=== PATIENT | male | born 1970 | race Caucasian/White ===

== ENCOUNTER 2017-11-28 09:52 | Inpatient (IN) | payer OTHER ==
[~2017-11-28] VITALS: Ht 172.7 cm; Wt 89.9 kg
[~2017-11-28 09:52] MED LIST: TOPROL XL 50MG50 MG PO
--- NOTE | 2017-11-28 09:56 | ED AMS/SEIZURE/WEAK/DIZZY ---
History of Present Illness General Chief Complaint: General Adult Stated Complaint: PT UNRESPONSIVE SUGAR >500 Source: family, old records, EMS Exam Limitations: clinical condition Vital Signs & Intake/Output Vital Signs & Intake/Output Vital Signs Date Time Temp Pulse Resp B/P B/P Pulse O2 O2 Flow FiO2 Mean Ox Delivery Rate 11/28 1425 95 Nasal 2.0L Cannula 11/28 1320 99.3 124 40 104/60 95 Nasal 2.0L Cannula 11/28 1257 98.3 123 20 116/55 98 Room Air 11/28 1219 121 20 116/62 97 Nasal 4.0L Cannula 11/28 1152 98.5 121 20 124/60 99 Nasal 4.0L Cannula 11/28 1135 118 20 123/59 99 Nasal 4.0L Cannula 11/28 1128 98 Nasal 4.0L Cannula 11/28 1121 123 20 125/61 100 Nasal 4.0L Cannula 11/28 1106 124 24 119/63 100 Nasal 4.0L Cannula 11/28 1041 126 30 124/59 98 Nasal 4.0L Cannula 11/28 1031 127 20 131/58 99 Nasal 4.0L Cannula 11/28 1017 98.4 122 40 100 Non 100% ReBreather 11/28 0956 40 86/48 Allergies Coded Allergies: NO KNOWN ALLERGIES (08/07/15) Triage Nurses Notes Reviewed? yes Onset: Abrupt Duration: day(s): (1), constant Timing: recent history Injury Environment: home Severity: severe Severity Numbers: 10 No Modifying Factors: none Associated Symptoms: DENIES HPI: 37-year-old male history of diabetes hypertension previous alcohol abuse presents after he was found by his mother shaking in his computer chair. He lives with her. She states over the past few weeks he's been complaining of worsening back pain and difficulty walking secondary to his back pain which is attributed to sciatica. His mother states he's only been taking ibuprofen for the pain on arrival his blood sugars greater than 500 he's not on insulin. Patient is lethargic however responsive to painful stimuli. His mother states otherwise been in his normal state of health he is a former alcoholic she states she does not believe he is on any drugs. No history of withdrawal seizures however he has had history of bad withdrawal symptoms in the past. (Katiuska FONSECA,Paras) Reconcile Medications No Known Home Medications (Mayank Alberts DO) Past History Medical History Any Pertinent Medical History? 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 No (Paras Gautam) Review of Systems Review of Systems Constitutional: Reports: see HPI. Comments Review of systems: Obtained via mother Constitutional, no chills no fever, no malaise HEENT: no sore throat no congestion, no ear pain Cardiovascular: No chest pain Skin: no rashes, no change in skin Respiratory: No dyspnea no cough no sputum GI: No nausea no vomiting, no diarrhea : No dysuria No hematuria, no frequency Muscle skeletal: No joint pain, chronic back pain, no neck pain, Neurologic: , no headache Heme/endocrine: No bruising no bleeding (Paras Gautam) Physical Exam Physical Exam General Appearance: lethargic, severe distress Comments: HEENT: Normal EENT exam; pupils are myotic, EOMI, no nystagmus. HEAD is atraumatic. moist mucous membranes. Neck: Supple, no lymphadenopathy, Back: Nontender, no CVA tenderness. Full range of motion Cardiovascular: Tachycardic, regular rhythm no murmurs rubs or gallops, normal JVP Respiratory: Chest nontender.There were no bony deformities, no asymmetry. No respiratory distress. Patient speaking in full complete sentences. Breath sounds clear to auscultation bilaterally: NO W/R/R Abdomen: Soft, nontender nondistended, no appreciable organomegaly. Normal bowel sounds. No rebound/guarding, No appreciable enlargement of the abdominal aorta, No ascites. Extremity: 2+ bilateral lower extremity edema, responsive to pain, ecchymosis noted to the right shoulder full range of motion of extremities, no obvious deformity normal and equal pulses bilaterally, 5 out of 5 strength noted to bilateral upper and lower extremities Neuro: Lethargic, responsive to verbal and painful stimuli, There were no obvious focal neurologic abnormalities. Skin: No appreciable rash on exposed skin, skin is warm and dry. Psych: Mood and affect is normal, memory and judgment is normal. Core Measures ACS in differential dx? Yes CVA/TIA Diagnosis No Sepsis Present: Yes Sepsis Focused Exam Completed? Yes (Katiuska FONSECA,Paras) Progress Differential Diagnosis: arrythmia, alcohol intoxication, anemia, benign positional vertigo, drug intoxication, electrolyte imbalance, intracranial Hem., intracranial mass/tumor, meningitis, pneumonia, sepsis, seizure disorder, subarachnoid Hem., UTI/pyelo, vertebrobasilar insuff, AMI, SEPSIS, WITHDRAWAL, DKA, HHS Plan of Care: Orders Procedure Date/time Status CBC WITHOUT DIFFERENTIAL 11/29 0600 Active Nothing by Mouth 11/28 D Active LACTIC ACID 11/28 1911 Active TROPONIN LEVEL 11/28 1700 Active LACTIC ACID 11/28 1700 Active ICU LAB BUNDLE 11/28 1700 Active EKG 11/28 1700 Active TRC EVALUATION (GEN) 11/28 1615 Active EXTREMETIES CULTURE 11/28 1614 Active XRY-PORTABLE CHEST XRAY 11/28 1548 Active Lab Add-on Test 11/28 1546 Active BLOOD PRODUCT PICKUP 11/28 1519 Active ECHOCARDIOGRAM 11/28 1450 Active ECHOCARDIOGRAM 11/28 1447 Active Lab Add-on Test 11/28 1440 Active Wound Care/Dressing 11/28 1401 Active VTE Mechanical Prophylaxis 11/28 1401 Active Vital Signs 11/28 1401 Active Turn and Reposition 11/28 1401 Active Teach/Educate 11/28 1401 Active Skin Integrity Protocol 11/28 1401 Active Skin/Pressure Ulcer Assess (Sk 11/28 1401 Active Precautions 11/28 1401 Active Pain Treatment and Response 11/28 1401 Active Nutritional Intake, Monitor 11/28 1401 Active Isolation 11/28 1401 Active Patient Care Conference 11/28 1401 Active Activity/Ambulation 11/28 1401 Active EXTREMETIES CULTURE 11/28 1400 Active TYPE & SCREEN (NOT X-MATCH) 11/28 1400 Complete CYTOLOGY SPECIMEN 11/28 1358 Active FRESH FROZEN PLASMA 11/28 1356 Active LACTIC ACID 11/28 1254 Complete PROSTATIC SPECIFIC ANTIGEN 11/28 1237 Complete PHOSPHORUS 11/28 1230 Complete MAGNESIUM 11/28 1230 Complete GLUCOSE 11/28 1230 Complete BASIC ELECTROLYTES PLUS BUN&CR 11/28 1230 Complete US-LIMITED ABDOMEN 11/28 1201 Active VRE ACTIVE SURVIELLANCE 11/28 1201 Active ACTIVE SURVEILLANCE NARES 11/28 1201 Active FingerStick- Glucose 11/28 1157 Active Saline Lock 11/28 1152 Active Pathway - chart 11/28 1152 Active House Staff 11/28 1152 Active Patient Data 11/28 1135 Active ED Holding Orders 11/28 1122 Active Admit to inpatient 11/28 1122 Active Vital Signs 11/28 1122 Complete Code Status 11/28 1122 Active ACETONE 11/28 1113 Complete Add-on Test (ER Only) 11/28 1035 Active Intake & Output 11/28 1012 Active CULTURE,URINE 11/28 1012 Active GLYCOSYLATED HGB 11/28 1011 Active ARTERIAL BLOOD GAS (GEN) 11/28 1008 Complete URINE DRUG SCREEN FOR ER ONLY 11/28 1008 Complete Zabala, Insertion/Removal/Asses 11/28 1003 Active EKG 11/28 1003 Active FingerStick- Glucose 11/28 0956 Complete URINALYSIS 11/28 0956 Complete MIXED VENOUS BLOOD GAS (GEN) 11/28 0954 Complete BLOOD CULTURE 11/28 0954 Active ACETOMINOPHEN 11/28 0954 Active TROPONIN LEVEL 11/28 0954 Active SALICYLATE 11/28 0954 Active PARTIAL THROMBOPLASTIN TIME 11/28 0954 Complete PROTHROMBIN TIME 11/28 0954 Complete SERUM OSMOLALITY 11/28 0954 Active LACTIC ACID 11/28 0954 Active ETHANOL 11/28 0954 Active COMPREHENSIVE METABOLIC PANEL 11/28 0954 Active CBC WITHOUT DIFFERENTIAL 11/28 0954 Complete OXYGEN SETUP (GEN) 11/28 UNK Complete VTE Mechanical Prophylaxis 11/28 UNK Complete CIWA 11/28 UNK Active Current Medications Sig/[place] Start time Last Medication Dose Stop Time Status Admin Heparin Sodium 5,000 UNIT Q8 11/29 0600 CAN (Porcine) Pantoprazole Sodium 40 MG DAILY 11/28 1501 AC (Protonix) Non-Formulary 0 SEE ADMIN CRITERIA 11/28 1445 CAN Medication (NON FORMULARY) Piperacillin Sod/ 3.375 GM Q6H 11/28 1445 AC 11/28 Tazobactam Sod 1536 (Zosyn) Sodium Chloride 100 ML (Normal Saline 0.9%) Acetaminophen 650 MG Q6P PRN 11/28 1215 AC (Tylenol) Insulin Human Regular 100 UNIT Q24H 11/28 1215 AC (Novolin R (Insulin Drip)) Sodium Chloride 100 ML (Normal Saline 0.9%) Lorazepam 0 Q1P PRN 11/28 1215 AC (Ativan) Potassium Chloride 20 MEQ Q8H 11/28 1200 AC 05/26 (KCl 20MEQ in NS 1220 1000ML) Sodium Chloride 1,000 ML (Normal Saline 0.9%) Laboratory Tests 11/28/17 1237: Lactic Acid 3.8 H 11/28/17 1237: Anion Gap 20 H, Estimated GFR 36 L, BUN/Creatinine Ratio 28.5 H, Glucose 557 *H, Phosphorus 6.3 H, Magnesium 2.2, Total PSA 0.19 11/28/17 1124: Acetone Level POSITIVE AT 1:16 DIL 11/28/17 1040: Bicarbonate Actual 14 L, Mixed VBG pH 7.19 L, Mixed VBG pCO2 38 L, Mixed VBG O2 Saturation 48 H, P-50 (Temp Corrected) N, Carboxyhemoglobin 0.9 L, O2 Concentration % 100%, Temperature 98.4, O2 Delivery Method NRB, PT 40.7 H, INR 3.69 H, APTT 49 H, Phlebotomy Draw Site RAC 11/28/17 1020: pH 7.25 *L, pCO2 30 L, pO2 271 H, HCO3 13 L, ABG O2 Sat (Measured) 99.0, P-50 (Temp Corrected) N, Carboxyhemoglobin 0.5 L, O2 Concentration % 100%, Temperature 98.4, O2 Delivery Method NRB, Phlebotomy Draw Site RIGHT RADIAL 11/28/17 1012: Urine Opiates Screen < 100, Methadone Screen < 40, Barbiturate Screen < 60, Ur Phencyclidine Scrn < 6.00, Amphetamines Screen < 100, U Benzodiazepines Scrn < 85, Urine Cocaine Screen < 50, Urine Cannabis Screen > 80.00 H, Urinalysis LIGHT H, Urine Color BLDY H, Urine Clarity TURBD H, Urine pH 7.0, Ur Specific [place] 1.020, Urine Protein >=300 H, Urine Ketones 15 H, Urine Nitrite POS H , Urine Bilirubin NEG@ICTO, Urine Urobilinogen 4.0 H, Ur Leukocyte Esterase LARGE H, Ur Microscopic SEDIMENT EXAMINED, Urine RBC >75 H, Urine WBC > 75 H, Urine Bacteria MANY H, Micro UA Comment MORE INFO: H, Urine Hemoglobin LARGE H, Urine Glucose 250 H 11/28/17 1011: Anion Gap 29 H, Estimated GFR 30 L, BUN/Creatinine Ratio 24.3, Glucose 702 *H, Hemoglobin A1c Pending, Serum Osmolality 339 H, Lactic Acid 5.6 H, Calcium 8.3 L, Total Bilirubin 1.4 H, AST 61 H, ALT 26, Alkaline Phosphatase 297 H, Troponin I 0.06, Total Protein 5.8 L, Albumin 2.4 L, Globulin 3.4, Albumin/ Globulin Ratio 0.7 L, CBC w Diff MAN DIFF ORDERED, RBC 5.10, MCV 82.5, MCH 27.0 , MCHC 32.8 L, RDW 15.1 H, MPV 9.3, Gran % 92.8 H, Lymphocytes % 3.6 L, Monocytes % 3.6, Eosinophils % 0, Basophils % 0, Absolute Granulocytes 66.6 H, Segmented Neutrophils 77 H, Band Neutrophils 11 H, Absolute Lymphocytes 2.6, Lymphocytes 5 L, Monocytes 1 L, Absolute Monocytes 2.6 H, Absolute Eosinophils 0, Absolute Basophils 0, Metamyelocytes 2 H, Myelocytes 4 H, Platelet Estimate ADEQUATE, Normocytic RBCs VERIFIED, Normochromic RBCs VERIFIED , Salicylates < 1.0, Acetaminophen < 10.0 L, Serum Alcohol < 10.0 11/28/17 1007: Salicylates Cancelled, Acetaminophen Cancelled 11/28/17 0956: Serum Alcohol Cancelled Microbiology 11/28 1614 EXTREMITIE: Culture & Sensitivity - ORD 11/28 1614 EXTREMITIE: Gram Stain - ORD 11/28 1420 EXTREMITIE: Culture & Sensitivity - RECD 11/28 1420 EXTREMITIE: Anaerobic Culture - RECD 11/28 1420 EXTREMITIE: Gram Stain - RECD 11/28 1320 UPPER RESP: Surveillance Culture - RECD 11/28 1320 GI: Surveillance Culture - RECD 11/28 1040 BLOOD: Blood Culture - RECD 11/28 1030 BLOOD: Blood Culture - RECD 11/28 1012 URINE ROUT: Urine Culture - RECD 11/28 1003 URINE ROUT: Urine Culture - CAN Cancelled: Cancelled via OE: CAN BE ADDED ON Labs ordered old records reviewed no response with 2 mg of IV Narcan in the emergency room Dr. Alberts in room to evaluate PT and agrees with plan 11/28/2017 10:26:50 AM he should more responsive answering my questions he denies any alcohol or drug use today he denies any pain at this time. He states he has not been taking his medications. 115Kelly- jorge is more awake at this time fluids are running, I updated Jorge's mother on all his labs CAT scan findings to date pending CAT scan of the chest abdomen pelvis. Dr. Alberts spoke with , insulin drip ordered Andre is currently infusing Fortaz was ordered, jorge will be admitted to the ICU 11/28/2017 12:10:54 PM11/28/2017 12:10:57 PM I updated family on CAT scan results, I spoke with Dr. BANERJEE regarding the CAT scan results I spoke with [facility] about Diagnostic Imaging: Viewed by Me: Radiology Read, CT Scan. Discussed w/RAD: Radiology Read, CT Scan. Radiology Impression: PATIENT: JORGE ELLSWORTH PRESENT AGE : 47 PATIENT ACCOUNT NO: [id number] : 68 LOCATION: [facility] ORDERING PHYSICIAN: Paras FONSECA SERVICE DATE: 11/28/17-1007 EXAM TYPE: CAT - CT CERV SPINE WO IV CONTRAST; CT HEAD WO IV CONTRAST EXAMINATION: CT HEAD AND CT OF THE CERVICAL SPINE WITHOUT CONTRAST CLINICAL INFORMATION: Unresponsive. COMPARISON: None. TECHNIQUE: Noncontrast CT scan of the head and cervical spine, using standard protocol. Multiplanar reconstructed images are obtained. Multiplanar reconstructed images are also obtained. FINDINGS: CT OF THE HEAD: Evaluation is slightly technically limited due to head tilting. The brain parenchyma, ventricles, cisterns and sulci appear unremarkable. Specifically, no evidence of intra-axial mass, mass effect, extra-axial fluid collection, midline shift, acute intraparenchymal hemorrhage and/or acute infarction present. Both orbital globes, extraocular muscles, optic nerves appear bilaterally symmetric and are unremarkable. The bilateral mastoid air cells appear unremarkable. CT OF THE CERVICAL SPINE: Moderate mid to lower cervical dextroscoliosis is present. Significant facet degenerative changes are noted at C3-C4 on the left. Mild-to- moderate spondylosis related changes are noted at C5-C6, C6-C7 and to a lesser extent C3-C4. There is reversal of midcervical lordosis present. The prespinal soft tissues appear unremarkable. There is no superimposed acute fracture or subluxation present. IMPRESSION: 1. No acute intracranial pathology. 2. No CT evidence of any acute fracture no subluxation or dislocation or prespinal soft tissue hematoma present at the cervical spine. 3. Moderate mid to lower cervical dextroscoliosis, significant facet degenerative arthritic changes at C3-C4 on the left and mild to moderate multilevel spondylosis, and reversal of midcervical lordosis present. DICTATED BY: Bertrand Toure MD DATE/TIME DICTATED :11/28/171116 AUTOMOTIVE BUYER:MONIK DATE/TIME TRANSCRIBED:11/28/171116 CONFIDENTIAL, DO NOT COPY WITHOUT APPROPRIATE AUTHORIZATION. < Electronically signed in Other Vendor System> SIGNED BY: Bertrand Toure MD 11/28/17 1135, PATIENT: JORGE ELLSWORTH PRESENT AGE: 47 PATIENT ACCOUNT NO: [id number] : 66 LOCATION: [facility] ORDERING PHYSICIAN: Paras FONSECA SERVICE DATE: 11/28/171008 EXAM TYPE: RAD - XRY-PORTABLE CHEST XRAY EXAMINATION: XR PORTABLE CHEST CLINICAL INFORMATION: Unresponsive. COMPARISON: Portable chest radiograph done on 09/19/2005. TECHNIQUE: Portable frontal view of the chest was obtained. FINDINGS: Both lungs are symmetrically expanded, appear clear. The cardiomediastinal silhouette is centrally located, within normal limits. There is no pleural effusion or pneumothorax identified. Visualized upper abdomen is unremarkable. IMPRESSION: No radiographic evidence of acute cardiopulmonary disease. DICTATED BY: Bertrand Toure MD DATE/TIME DICTATED:11/28/171037 AUTOMOTIVE BUYER:MONIK DATE/TIME TRANSCRIBED:1037 CONFIDENTIAL, DO NOT COPY WITHOUT APPROPRIATE AUTHORIZATION. < Electronically signed in Other Vendor System> SIGNED BY: Bertrand Toure MD 11/28/17 1043, : JORGE ELLSWORTH PRESENT AGE: 47 PATIENT ACCOUNT NO: [id number] : 66 LOCATION: [facility] ORDERING PHYSICIAN: Paras FONSECA SERVICE DATE: 11/28/17 EXAM TYPE: CAT - CT ABD & PELVIS W/O IV CONTRAS; CT CHEST WO IV CONTRAST EXAMINATION: CT CHEST, ABDOMEN AND PELVIS WITHOUT CONTRAST CLINICAL INFORMATION: 47-year-old male, unresponsive. COMPARISON: None. TECHNIQUE: Multidetector volumetric imaging was performed from the thoracic inlet through the pubic symphysis without administration of any contrast. DLP: 882.21 mGy-cm. FINDINGS: VISUALIZED NECK: Unremarkable. LUNGS: There are multiple thick-walled bilateral cavitary lesions identified throughout both lung alfred. Few smaller solid nodules are also noted bilaterally. The findings are nonspecific; however, possible differential diagnostic consideration would include metastatic disease versus evolving septic pulmonary emboli and less likely other possibilities such as granulomatosis with polyangiitis (Marcos's granulomatosis), etc. MEDIASTINUM: There are no pathologically enlarged mediastinal and/or hilar lymphadenopathy identified on this nonenhanced study. No significant atherosclerotic disease or coronary arterial disease. PLEURA: There is no pleural effusion. No pleural mass or thickening. AXILLA: No lymphadenopathy LIVER, GALLBLADDER, BILIARY TREE: Unremarkable on this nonenhanced study. PANCREAS: Predominantly fatty replaced, grossly appears unremarkable on this nonenhanced study. SPLEEN: Unremarkable. ADRENAL GLANDS AND KIDNEYS: There is no discrete adrenal mass identified in either side. Mild fullness of the right renal collecting system is noted. There is no urinary tract calculi or obstruction present. An exophytic cortical cyst is present at the superior posterior medial cortex of the left kidney, measures approximately 2 cm at its maximum anteroposterior dimension. URETERS AND BLADDER : Mild fullness of the right ureter is noted. The urinary bladder is suboptimally distended due to presence of Zabala's catheter and is not evaluated. There is nonspecific stranding present around the urinary bladder, of uncertain etiology. BOWEL LOOPS: The small-bowel, large-bowel loops are decompressed. The stomach is moderately distended, unremarkable. The appendix is unremarkable. LYMPHOVASCULAR STRUCTURES: No pathologically enlarged retroperitoneal, mesenteric, pelvic and/or inguinal, groin lymphadenopathy present. There are vascular calcifications identified within the pelvic vessels, likely represents changes secondary to diabetic or nephrogenic vasculopathy. ABDOMINAL WALL: Fat- containing supraumbilical hernia is noted. The defect measures 2.8 cm in transverse dimension. PELVIS: The prostate measures 6.0 x 4.8 cm. Lobulated soft tissue mass is identified within the right ischiorectal fossa with asymmetric prominence of the right-sided gluteal muscles. Given the presence of cortical break involving the right ischial tuberosity and the right inferior pubic ramus, the findings may represent adjacent soft tissue hematoma. In the absence of trauma, however, differential includes neoplastic process (see the goodwin images). Given the presence of tiny air pocket within the soft tissues, the trauma is favored. BONES: Cortical break is noted at the right ischial tuberosity and the right inferior pubic ramus with adjacent soft tissue prominence and tiny air pocket within the soft tissues, most consistent with posttraumatic change or fracture and soft tissue hematoma. Differential includes neoplasm in the absence of trauma. IMPRESSION: 1. Multiple bilateral pulmonary cavitary and few solid lesions are present, as described above. Differential includes metastatic disease versus infection, inflammation including septic pulmonary emboli. Clinical, lab correlation as appropriate is recommended. 2. Limited evaluation of the abdomen and pelvis shows mild fullness of the right ureter and nonspecific stranding around the collapsed urinary bladder and mildly enlarged prostate, and lobulated soft tissue mass within the right ischiorectal fossa and soft tissue fullness involving the right gluteal region and cortical break of the right ischial tuberosity and right inferior pubic ramus. The findings within the pelvis may represent posttraumatic changes, however, differential includes neoplasm as well. This critical result was discussed with RAYMUNDO Marie at 11: 57 AM on 11/28/2017 and it was ascertained that the content and urgency of the report was understood at the time of direct communication. DICTATED BY: Bertrand Toure MD DATE/TIME DICTATED:11/28/171132 AUTOMOTIVE BUYER:MONIK DATE/ TIME TRANSCRIBED:11/28/171132 CONFIDENTIAL, DO NOT COPY WITHOUT APPROPRIATE AUTHORIZATION. <Electronically signed in Other Vendor System> SIGNED BY: Bertrand Toure MD 11/28/17 1239 Initial ED EKG: STACH AT 110, RBBB, NO ACUTE ST SEG CHANGES Prior EKG: unchanged Rhythm Strip: sinus tachycardia (Paras Gautam) ED Sepsis Exam Date of Focused Sepsis Exam: 11/28/17 Time of Focused Sepsis Exam: 1122 Sepsis Cardiac Exam: Tachycardia Sepsis Resp Exam: CTA Sepsis Cap Refill Exam: <2 Sec Sepsis Peripheral Pulse Exam: Normal Sepsis Peripheral Pulse Location: Radial Sepsis Skin Color Exam: Normal for Ethnicity Skin Temp/Moisture Exam: Warm/Dry (Paras Gautam) Departure Departure Disposition: STILL A PATIENT Condition: Stable Clinical Impression Primary Impression: Sepsis Secondary Impressions: JAMAL (acute kidney injury), DKA (diabetic ketoacidoses), Fracture of ischial tuberosity, Leukocytosis, Pubic ramus fracture, Septic embolism, UTI (urinary tract infection) Referrals: Emilio Kim DO (PCP/Family) Departure Forms: Customer Survey General Discharge Information Prescriptions: Current Visit Scripts No Known Home Medications Admission Note Spoke With: Anaya Banerjee MD Documentation of Exam: Documentation of any treatments & extenuating circumstances including Concerns Regarding Discharge (functional status, medication knowledge or non-compliance, living conditions, etc.) that warrant an admission rather than observation: ENDOCRINE CONSULT, INSULIN GTT, TREND LABS AND CULTURES, PREMATURE DISCHARGE MEDICALLY HARMFUL (Paras Gautam) Admission Note Documentation of Exam: Documentation of any treatments & extenuating circumstances including Concerns Regarding Discharge (functional status, medication knowledge or non-compliance, living conditions, etc.) that warrant an admission rather than observation: I spoke with who accepted the patient for admission to the ICU. He was started on an insulin drip and IV antibiotics PA/AUTOMATIC TYPEWRITER INSPECTOR Co-Sign Statement Statement: ED Attending supervision documentation- [X] I saw and evaluated the patient. I have also reviewed all the pertinent lab results and diagnostic results. I agree with the findings and the plan of care as documented in the PA's/AUTOMATIC TYPEWRITER INSPECTOR's documentation. [] I have reviewed the ED Record and agree with the PA's/AUTOMATIC TYPEWRITER INSPECTOR's documentation. [] Additions or exceptions (if any) to the PAs/AUTOMATIC TYPEWRITER INSPECTOR's note and plan are summarized below: [] I've seen and personally examined the patient on arrival. I agree with the PAs evaluation above. He is a 47-year-old man with a history of non-insulin- dependent diabetes who was found unresponsive this morning. His glucose is greater than 500. He has miotic pupils. He did not respond to Narcan. He is hypotensive. Labs and CTs have been ordered. He is receiving IV fluids. His family has been updated. EKG shows sinus tachycardia with bundle branch block. (Mayank Alberts DO) Critical Care Note Critical Care Note Critical Care Time: 75-104 min (Paras Gautam)
[2017-11-28 10:29] LABS: ABSOLUTE EOSINOPHIL COUNT 0 /CUMM (0.0-0.7); EOSINOPHIL % 0 % (0-5)
[2017-11-28 10:34] LABS: ABSOLUTE BASOPHIL COUNT 0 /CUMM (0.0-0.2); ABSOLUTE GRANULOCYTE CT 66.6 /CUMM (1.4-6.5); ABSOLUTE LYMPH COUNT 2.6 /CUMM (1.2-3.4); ABSOLUTE MONOCYTE COUNT 2.6 /CUMM (0.10-0.60); BASOPHIL % 0 % (0.0-2.0); GRANULOCYTE % 92.8 % (42.2-75.2); MEAN CORPUSCULAR HGB CONC 32.8 G/DL (33.0-37.0); MEAN CORPUSCULAR VOLUME 82.5 FL (80.0-94.0); MEAN PLATELET VOLUME 9.3 FL (7.4-10.4); PLATELET COUNT 199 /CUMM (130-400); RBC DISTRIBUTION WIDTH 15.1 % (11.5-14.5)
[2017-11-28 10:41] LABS: WHITE BLOOD CELL COUNT 71.8 /CUMM (4.8-10.8)
--- NOTE | 2017-11-28 10:43 | RADIOLOGY REPORT ---
EXAMINATION: XR PORTABLE CHEST CLINICAL INFORMATION: Unresponsive. COMPARISON: Portable chest radiograph done on 09/19/2005. TECHNIQUE: Portable frontal view of the chest was obtained. FINDINGS: Both lungs are symmetrically expanded, appear clear. The cardiomediastinal silhouette is centrally located, within normal limits. There is no pleural effusion or pneumothorax identified. Visualized upper abdomen is unremarkable. IMPRESSION: No radiographic evidence of acute cardiopulmonary disease.
[2017-11-28 11:11] LABS: PT 40.7 SEC (9.4-12.5); PTT 49 SEC (25-37)
--- NOTE | 2017-11-28 11:35 | CT SCAN REPORT ---
EXAMINATION: CT HEAD AND CT OF THE CERVICAL SPINE WITHOUT CONTRAST CLINICAL INFORMATION: Unresponsive. COMPARISON: None. TECHNIQUE: Noncontrast CT scan of the head and cervical spine, using standard protocol. Multiplanar reconstructed images are obtained. Multiplanar reconstructed images are also obtained. FINDINGS: CT OF THE HEAD: Evaluation is slightly technically limited due to head tilting. The brain parenchyma, ventricles, cisterns and sulci appear unremarkable. Specifically, no evidence of intra-axial mass, mass effect, extra-axial fluid collection, midline shift, acute intraparenchymal hemorrhage and/or acute infarction present. Both orbital globes, extraocular muscles, optic nerves appear bilaterally symmetric and are unremarkable. The bilateral mastoid air cells appear unremarkable. CT OF THE CERVICAL SPINE: Moderate mid to lower cervical dextroscoliosis is present. Significant facet degenerative changes are noted at C3-C4 on the left. Bjel-yq-gaqfazay spondylosis related changes are noted at C5-C6, C6-C7 and to a lesser extent C3-C4. There is reversal of midcervical lordosis present. The prespinal soft tissues appear unremarkable. There is no superimposed acute fracture or subluxation present. IMPRESSION: 1. No acute intracranial pathology. 2. No CT evidence of any acute fracture no subluxation or dislocation or prespinal soft tissue hematoma present at the cervical spine. 3. Moderate mid to lower cervical dextroscoliosis, significant facet degenerative arthritic changes at C3-C4 on the left and mild to moderate multilevel spondylosis, and reversal of midcervical lordosis present.
--- NOTE | 2017-11-28 12:09 | History & Physical ---
See Addendum General Information and HPI MD Statement: I have seen and personally examined SINGH NO and documented this H&P. The patient is a 47 year old M who presented with a patient stated chief complaint of [AMS]. Source of Information: patient, family, old records Exam Limitations: no limitations History of Present Illness: Mr. No is a 47 yo man with PMHx. of type 2 diabetes managed with metformin ( insulin kristine), history of hypertension brought in by ambulance from home for altered mental status. Most history obtained from mother, sister, stepfather, patient himself is lethargic but able to respond to some questions. Today in the morning family went to patient's bedroom and they found that he was sitting on the chair in front of the computer nonresponsive to verbal stimuli, moving upper extremity with no purpose, during the episode he was incontinent for both urine and stool. they thought he had stroke so they called 911. According to family, patient was noticed to have severe right lower back pain which he was attributing to sciatica (never been evaluated medically for that), secondary to severe pain he was sitting on all the time on his bed or on chair in front of his computer, family also reported that he was not eating properly, lost a lot of weight over the last few months. Per family patient was depressed lately after he was broke up with his fiance, he also lost his job and his insurance last year so, he was not seen by his primary care physician since that time, as a result he stopped taking metformin and he didn't get his blood sugar checked since last year. His last refill for metformin was at February. Patient himself reports right lower quadrant pain, he couldn't qualify the nature of the pain or severity given his current status, she also answer yes when asked about difficulty passing urine and he mentioned that he had pain during urination, patient also reports having diarrhea but unknown since when and the family was not aware of it. 2/2 depression patient strat to drink heavily, he stopped drinking about 5 months ago. He denies chest pain, shortness of breath, cough, trauma, recent fall, and Allergies/Medications Allergies: Coded Allergies: NO KNOWN ALLERGIES (08/07/15) Home Med list No Known Home Medications Past History Travel History Traveled to [place] past 21 day No Medical History Neurological: NONE EENT: NONE Cardiovascular: hypertension Respiratory: NONE Gastrointestinal: hiatal hernia Hepatic: NONE Renal: NONE Musculoskeletal: NONE Psychiatric: depression Endocrine: diabetes Blood Disorders: NONE Cancer(s): NONE INSTRUCTIONAL SPECIALIST/Reproductive: NONE Surgical History Surgical History: FAILED UMBILICAL HERNIA REPAIR Past Family/Social History Family History Relations & Conditions if any BROTHER FH: alcoholism Pancreatitis FATHER FH: alcoholism Pancreatitis MOTHER FH: diabetes mellitus FH: hypertension Psychosocial History Smoking Status: Never Smoked ETOH Use: denies use Illicit Drug Use: marijuana Living Will? no Review of Systems Review of Systems Constitutional: Reports: no symptoms. EENTM: Reports: no symptoms. Cardiovascular: Reports: see HPI. Respiratory: Reports: no symptoms. GI: Reports: abdominal pain. Genitourinary: Reports: dysuria, hematuria, pain. Musculoskeletal: Reports: back pain. Skin: Reports: no symptoms. Neurological/Psychological: Reports: see HPI. Hematologic/Endocrine: Reports: see HPI. Immunologic/Allergic: Reports: no symptoms. All Other Systems: Reviewed and Negative Exam & Diagnostic Data Last 24 Hrs of Vital Signs/I&O Vital Signs Date Time Temp Pulse Resp B/P B/P Pulse O2 O2 Flow FiO2 Mean Ox Delivery Rate 11/28 1425 95 Nasal 2.0L Cannula 11/28 1320 99.3 124 40 104/60 95 Nasal 2.0L Cannula 11/28 1257 98.3 123 20 116/55 98 Room Air 11/28 1219 121 20 116/62 97 Nasal 4.0L Cannula 11/28 1152 98.5 121 20 124/60 99 Nasal 4.0L Cannula 11/28 1135 118 20 123/59 99 Nasal 4.0L Cannula 11/28 1128 98 Nasal 4.0L Cannula 11/28 1121 123 20 125/61 100 Nasal 4.0L Cannula 11/28 1106 124 24 119/63 100 Nasal 4.0L Cannula 11/28 1041 126 30 124/59 98 Nasal 4.0L Cannula 11/28 1031 127 20 131/58 99 Nasal 4.0L Cannula 11/28 1017 98.4 122 40 100 Non 100% ReBreather 11/28 0956 40 86/48 Intake & Output 11/28 1600 11/28 0800 11/28 0000 Intake Total 4223 Output Total 50 Balance 4173 Intake, IV 4223 Intake, Oral 0 Number 1 Bowel Movements Output, Urine 50 Patient 198 lb Weight Weight Bed scale Measurement Method Physical Exam General Appearance Alert, Oriented X3, Cooperative, No Acute Distress Skin RIGHT UPPER EXTREMITY ABSCESS, PURPLE DISCOLORATION ON THE COCCYX REGION, WITH OPEN SKIN BARRIER Skin Temp/Moisture Exam: Warm/Dry Sepsis Skin Exam (color): Pale, [place] lesions on the palms HEENT Atraumatic, PERRLA, DRY MUCOUS MEMBRANE Neck Supple, No JVD Lymphatic Axillary nl, Cervical nl Cardiovascular Regular Rate, Normal S1, Normal S2, MURMUR Lungs DECREASE AIR ENTRY BILATERALLY MORE ON THE RIGHT SIDE Abdomen Normal Bowel Sounds, Soft, TENDERNESS ON THE RIGHT LOWER QUADRANT Neurological PATIENT IS LETHARGIC,HE HAS DECREASED POWER IN BILATERAL UPPER AND LOWER EXTREMITIES Extremities No Clubbing, No Cyanosis, DIMINISHED PULSE IN BILATERAL LOWER EXTREMITY, RIGHT LOWER EXTREMITY EDEMA AND SWELLING COMPARED TO THE LEFT Vascular DIMINISHED PULSE IN BILATERAL LOWER EXTREMITY Last 24 Hrs of Labs/Rl: Laboratory Tests 11/28/17 1237: Lactic Acid 3.8 H 11/28/17 1237: Anion Gap 20 H, Estimated GFR 36 L, BUN/Creatinine Ratio 28.5 H, Glucose 557 *H, Phosphorus 6.3 H, Magnesium 2.2, Total PSA Pending 11/28/17 1124: Acetone Level POSITIVE AT 1:16 DIL 11/28/17 1040: Bicarbonate Actual 14 L, Mixed VBG pH 7.19 L, Mixed VBG pCO2 38 L, Mixed VBG O2 Saturation 48 H, P-50 (Temp Corrected) N, Carboxyhemoglobin 0.9 L, O2 Concentration % 100%, Temperature 98.4, O2 Delivery Method NRB, PT 40.7 H, INR 3.69 H, APTT 49 H, Phlebotomy Draw Site RAC 11/28/17 1020: pH 7.25 *L, pCO2 30 L, pO2 271 H, HCO3 13 L, ABG O2 Sat (Measured) 99.0, P-50 (Temp Corrected) N, Carboxyhemoglobin 0.5 L, O2 Concentration % 100%, Temperature 98.4, O2 Delivery Method NRB, Phlebotomy Draw Site RIGHT RADIAL 11/28/17 1012: Urine Opiates Screen < 100, Methadone Screen < 40, Barbiturate Screen < 60, Ur Phencyclidine Scrn < 6.00, Amphetamines Screen < 100, U Benzodiazepines Scrn < 85, Urine Cocaine Screen < 50, Urine Cannabis Screen > 80.00 H, Urinalysis LIGHT H, Urine Color BLDY H, Urine Clarity TURBD H, Urine pH 7.0, Ur Specific [place] 1.020, Urine Protein >=300 H, Urine Ketones 15 H, Urine Nitrite POS H , Urine Bilirubin NEG@ICTO, Urine Urobilinogen 4.0 H, Ur Leukocyte Esterase LARGE H, Ur Microscopic SEDIMENT EXAMINED, Urine RBC >75 H, Urine WBC > 75 H, Urine Bacteria MANY H, Micro UA Comment MORE INFO: H, Urine Hemoglobin LARGE H, Urine Glucose 250 H 11/28/17 1011: Anion Gap 29 H, Estimated GFR 30 L, BUN/Creatinine Ratio 24.3, Glucose 702 *H, Serum Osmolality 339 H, Lactic Acid 5.6 H, Calcium 8.3 L, Total Bilirubin 1.4 H, AST 61 H, ALT 26, Alkaline Phosphatase 297 H, Troponin I 0.06, Total Protein 5.8 L, Albumin 2.4 L, Globulin 3.4, Albumin/Globulin Ratio 0.7 L, CBC w Diff MAN DIFF ORDERED, RBC 5.10, MCV 82.5, MCH 27.0, MCHC 32.8 L, RDW 15.1 H , MPV 9.3, Gran % 92.8 H, Lymphocytes % 3.6 L, Monocytes % 3.6, Eosinophils % 0, Basophils % 0, Absolute Granulocytes 66.6 H, Segmented Neutrophils 77 H, Band Neutrophils 11 H, Absolute Lymphocytes 2.6, Lymphocytes 5 L, Monocytes 1 L, Absolute Monocytes 2.6 H, Absolute Eosinophils 0, Absolute Basophils 0, Metamyelocytes 2 H, Myelocytes 4 H, Platelet Estimate ADEQUATE, Normocytic RBCs VERIFIED, Normochromic RBCs VERIFIED, Salicylates < 1.0, Acetaminophen < 10.0 L, Serum Alcohol < 10.0 11/28/17 1007: Salicylates Cancelled, Acetaminophen Cancelled 11/28/17 0956: Serum Alcohol Cancelled Microbiology 11/28 142 EXTREMITIE: Culture & Sensitivity - RECD 11/28 142 EXTREMITIE: Anaerobic Culture - RECD 11/28 1420 EXTREMITIE: Gram Stain - RECD 11/28 1320 UPPER RESP: Surveillance Culture - RECD 11/28 1320 GI: Surveillance Culture - RECD 11/28 1040 BLOOD: Blood Culture - RECD 11/28 1030 BLOOD: Blood Culture - RECD 11/28 1012 URINE ROUT: Urine Culture - RECD 11/28 1003 URINE ROUT: Urine Culture - CAN Cancelled: Cancelled via OE: CAN BE ADDED ON Diagnostic Data EKG Results Sinus tachycardia, apparent complex, right bundle branch block, QTC 483 CXR Results IMPRESSION: No radiographic evidence of acute cardiopulmonary disease. Other Results Head/Cervical spine CT: IMPRESSION: 1. No acute intracranial pathology. 2. No CT evidence of any acute fracture no subluxation or dislocation or prespinal soft tissue hematoma present at the cervical spine. 3. Moderate mid to lower cervical dextroscoliosis, significant facet degenerative arthritic changes at C3-C4 on the left and mild to moderate multilevel spondylosis, and reversal of midcervical lordosis present. Chest CT: Multiple bilateral pulmonary cavitary and few solid lesions are present, as described above. Differential includes metastatic disease versus infection, inflammation including septic pulmonary emboli. Clinical, lab correlation as appropriate is recommended. Abdomen/pelvis CT: IMPRESSION: . Limited evaluation of the abdomen and pelvis shows mild fullness of the right ureter and nonspecific stranding around the collapsed urinary bladder and mildly enlarged prostate, and lobulated soft tissue mass within the right ischiorectal fossa and soft tissue fullness involving the right gluteal region and cortical break of the right ischial tuberosity and right inferior pubic ramus. The findings within the pelvis may represent posttraumatic changes, however, differential includes neoplasm as well. Assessment/Plan Assessment: Mr. No is a 47 yo man with PMHx. of type 2 diabetes managed with metformin ( insulin kristine), history of hypertension brought in by ambulance from home for altered mental status. Noted to have severe right lower back pain with difficulty ambulating, found to have elevated blood sugar up to 702, lactic acid of 5.6, anion gap of 29, pH of 7.25, bicarbonate of 13, INR of at our emergency department with metabolic acidosis, elevated anion gap, positive acetone, leukocytosis with left shift and bandemia, gross hematuria, and CAT scan finding of intra-abdominal mass (? Bladder/prostatic mass versus abscess) with cavitary lesions on the lung admitted for severe sepsis, mild DKA. Assessment: #Altered mental status secondary to sepsis and DKA #Severe sepsis secondary to urological origin VS intra-abdominal abscess secondary to uncontrolled diabetes, infective endocarditis also in differential #Cavitary lesion in the lung which could be septic emboli vs cancer #CAT scan finding of fullness of the ureter, stranding and collapse of the urinary bladder, and large prostate and lobulated soft tissue mass within the right ischiorectal fossa all of these finding could represent a complication of possible bladder/prostate cancer with metastasis to adjacent tissue vs intra- pelvic abscess #Anion gap metabolic acidosis which most likely related to sepsis although he has elevated blood sugar and positive acetone but he type II diabetic and never been on insulin with HbA1c of #JAMAL #Cardiopathy and transaminitis most likely related to the sepsis, however he has a history of alcohol dependence but he quit about 5 months ago #History of hypertension Plan: * We'll admit the patient to critical care unit * Would repeat all his labs in 2 hours * Accu-Cheks every one hour * Maintenance Engineer Edilberto Alexandre MD saw the patient * Insulin drip noted to be at 10 units per hour at emergency department however the case was discussed with Dr. de paz patient never been on insulin before as a result he is insulin kristine and we should be cautious with insulin drip, Edilberto Alexandre MD also think that the elevated AG is most likely secondary to sepsis, we will keep insulin drip at 4 units per hour for now given that his most recent Accu-Chek in 400s, will further titrate insulin drip based on Accu-Chek * For now we'll keep him in normal saline with 20 mEq of potassium and we are going to repeat his ICU lab bundle at 5 PM, if his potassium more than 5 we are going to discontinue the potassium and keep him on normal saline * Endocrinology consult placed with Dr. de paz * We will repeat lactic acid till normalized * Cardiology consult placed with Dr. Sanderson * Echocardiogram urgently to rule out endocarditis * Blood culture and urine cultures sent at emergency department we will follow- up on that * Patient received vancomycin and ceftazidime at the emergency department * Will start Zosyn to add coverage for anaerobic * Dr. Odonnell to see the patient today (ID) * Case also discussed with Dr. Sanches (urologist) over the phone she is going to see the patient later today * Cytology sent please follow-up * Culture from right lower extremity abscess was sent * Bilateral lower extremity Doppler to rule out DVT * INR elevated at 3.69, will order FFP and subcutaneous vitamin K to reverse INR for triple-lumen placement * ICU lab bundle every 4-6 hour * We'll check CBC at a.m. * Serial troponin and EKG given tachycardia * Right upper quadrant ultrasound to rule out any intrahepatic/biliary pathology * Surgical consult for incision and drainage of the abscess in the right thigh * IV Protonix ordered * Will watch his respiratory status closely, if any worsening we'll intubate the patient * Consider IR consultation for biopsy of the pelvic mass DVT prophylaxis Alps Full code As Ranked By This Provider Problem List: 1. Leukocytosis 2. JAMAL (acute kidney injury) 3. UTI (urinary tract infection) 4. Sepsis 5. Hyperglycemia 6. Fracture of ischial tuberosity 7. Septic embolism Core Measures/Misc (03/22) Acute Coronary Syndrome ACS Diagnosis: No Congestive Heart Failure Congestive Heart Failure Diagnosis No Cerebrovascular Accident CVA/TIA Diagnosis: No VTE (View Protocol) VTE Risk Factors Acute Medical Illness No Mechanical VTE Prophylaxis d/t N/A MechProphylax Ordered No VTE Pharm Prophylaxis d/t Supratherapeutic INR Sepsis (View protocol) Sepsis Present: Yes If YES complete Sepsis Event Note If YES complete Sepsis Event Note
--- NOTE | 2017-11-28 12:39 | CT SCAN REPORT ---
EXAMINATION: CT CHEST, ABDOMEN AND PELVIS WITHOUT CONTRAST CLINICAL INFORMATION: 47-year-old male, unresponsive. COMPARISON: None. TECHNIQUE: Multidetector volumetric imaging was performed from the thoracic inlet through the pubic symphysis without administration of any contrast. DLP: 882.21 mGy-cm. FINDINGS: VISUALIZED NECK: Unremarkable. LUNGS: There are multiple thick-walled bilateral cavitary lesions identified throughout both lung alfred. Few smaller solid nodules are also noted bilaterally. The findings are nonspecific; however, possible differential diagnostic consideration would include metastatic disease versus evolving septic pulmonary emboli and less likely other possibilities such as granulomatosis with polyangiitis (Marcos's granulomatosis), etc. MEDIASTINUM: There are no pathologically enlarged mediastinal and/or hilar lymphadenopathy identified on this nonenhanced study. No significant atherosclerotic disease or coronary arterial disease. PLEURA: There is no pleural effusion. No pleural mass or thickening. AXILLA: No lymphadenopathy LIVER, GALLBLADDER, BILIARY TREE: Unremarkable on this nonenhanced study. PANCREAS: Predominantly fatty replaced, grossly appears unremarkable on this nonenhanced study. SPLEEN: Unremarkable. ADRENAL GLANDS AND KIDNEYS: There is no discrete adrenal mass identified in either side. Mild fullness of the right renal collecting system is noted. There is no urinary tract calculi or obstruction present. An exophytic cortical cyst is present at the superior posterior medial cortex of the left kidney, measures approximately 2 cm at its maximum anteroposterior dimension. URETERS AND BLADDER: Mild fullness of the right ureter is noted. The urinary bladder is suboptimally distended due to presence of Zabala's catheter and is not evaluated. There is nonspecific stranding present around the urinary bladder, of uncertain etiology. BOWEL LOOPS: The small-bowel, large-bowel loops are decompressed. The stomach is moderately distended, unremarkable. The appendix is unremarkable. LYMPHOVASCULAR STRUCTURES: No pathologically enlarged retroperitoneal, mesenteric, pelvic and/or inguinal, groin lymphadenopathy present. There are vascular calcifications identified within the pelvic vessels, likely represents changes secondary to diabetic or nephrogenic vasculopathy. ABDOMINAL WALL: Fat-containing supraumbilical hernia is noted. The defect measures 2.8 cm in transverse dimension. PELVIS: The prostate measures 6.0 x 4.8 cm. Lobulated soft tissue mass is identified within the right ischiorectal fossa with asymmetric prominence of the right-sided gluteal muscles. Given the presence of cortical break involving the right ischial tuberosity and the right inferior pubic ramus, the findings may represent adjacent soft tissue hematoma. In the absence of trauma, however, differential includes neoplastic process (see the goodwin images). Given the presence of tiny air pocket within the soft tissues, the trauma is favored. BONES: Cortical break is noted at the right ischial tuberosity and the right inferior pubic ramus with adjacent soft tissue prominence and tiny air pocket within the soft tissues, most consistent with posttraumatic change or fracture and soft tissue hematoma. Differential includes neoplasm in the absence of trauma. IMPRESSION: 1. Multiple bilateral pulmonary cavitary and few solid lesions are present, as described above. Differential includes metastatic disease versus infection, inflammation including septic pulmonary emboli. Clinical, lab correlation as appropriate is recommended. 2. Limited evaluation of the abdomen and pelvis shows mild fullness of the right ureter and nonspecific stranding around the collapsed urinary bladder and mildly enlarged prostate, and lobulated soft tissue mass within the right ischiorectal fossa and soft tissue fullness involving the right gluteal region and cortical break of the right ischial tuberosity and right inferior pubic ramus. The findings within the pelvis may represent posttraumatic changes, however, differential includes neoplasm as well. This critical result was discussed with RAYMUNDO Marie at 11:57 AM on 11/28/2017 and it was ascertained that the content and urgency of the report was understood at the time of direct communication.
[2017-11-28 13:20] VITALS: BP 104/60
--- NOTE | 2017-11-28 14:37 | Cons- CRCU ---
General Information and HPI Consulting Request Date of Consult: 11/28/17 Requested By: MED TEAM History of Present Illness: History per ed 37-year-old male history of diabetes hypertension previous alcohol abuse presents after he was found by his mother shaking in his computer chair. He lives with her. She states over the past few weeks he's been complaining of worsening back pain and difficulty walking secondary to his back pain which is attributed to sciatica. His mother states he's only been taking ibuprofen for the pain on arrival his blood sugars greater than 500 he's not on insulin. Patient is lethargic however responsive to painful stimuli. His mother states otherwise been in his normal state of health he is a former alcoholic she states she does not believe he is on any drugs. No history of withdrawal seizures however he has had history of bad withdrawal symptoms in the past. Other history obtained by the mother and a family friend Apparently patient has not been drinking and not been using substances lately. He has been sick for few months with severe depression. However in the past week he has been having significant back pain and he has essentially become bedbound. Since then he has had overall deterioration of his performance status. Since he came into the emergency room he has been lethargic but slowly improving after fluid resuscitation. He was found to be septic febrile and now being admitted to the ICU. In the emergency room he did have a Zabala placed which is draining bloody urine. In the ICU he has had multiple small skin lesions noted suggestive of septic emboli-like picture, a large abscess in the left posterior thighs suggestive of infected sebaceous cyst draining pus. He also had a decubiti. Other review of symptoms could not be obtained Allergies/Medications Allergies: Coded Allergies: NO KNOWN ALLERGIES (08/07/15) Home Med List: No Known Home Medications Review of Systems Review of Systems Constitutional: Reports: see HPI. 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 Surgical History Surgical History: FAILED UMBILICAL HERNIA REPAIR Psychosocial History ETOH Use: denies use Illicit Drug Use: U Exam & Diagnostic Data Last 24 Hrs of Vital Signs/I&O Vital Signs Date Time Temp Pulse Resp B/P B/P Pulse O2 O2 Flow FiO2 Mean Ox Delivery Rate 11/28 1257 98.3 123 20 116/55 98 Room Air 11/28 1219 121 20 116/62 97 Nasal 4.0L Cannula 11/28 1152 98.5 121 20 124/60 99 Nasal 4.0L Cannula 11/28 1135 118 20 123/59 99 Nasal 4.0L Cannula 11/28 1128 98 Nasal 4.0L Cannula 11/28 1121 123 20 125/61 100 Nasal 4.0L Cannula 11/28 1106 124 24 119/63 100 Nasal 4.0L Cannula 11/28 1041 126 30 124/59 98 Nasal 4.0L Cannula 11/28 1031 127 20 131/58 99 Nasal 4.0L Cannula 11/28 1017 98.4 122 40 100 Non 100% ReBreather 11/28 0956 40 86/48 Intake & Output 11/28 1600 11/28 0800 11/28 0000 Intake Total 4000 Output Total Balance 4000 Intake, IV 4000 Patient 198 lb Weight Weight Bed scale Measurement Method Last 48 Hrs of Labs/Rl: Laboratory Tests 11/28/17 1237: Lactic Acid 3.8 H 11/28/17 1237: Anion Gap 20 H, Estimated GFR 36 L, BUN/Creatinine Ratio 28.5 H, Glucose 557 *H, Phosphorus 6.3 H, Magnesium 2.2 11/28/17 1124: Acetone Level POSITIVE AT 1:16 DIL 11/28/17 1040: Bicarbonate Actual 14 L, Mixed VBG pH 7.19 L, Mixed VBG pCO2 38 L, Mixed VBG O2 Saturation 48 H, P-50 (Temp Corrected) N, Carboxyhemoglobin 0.9 L, O2 Concentration % 100%, Temperature 98.4, O2 Delivery Method NRB, PT 40.7 H, INR 3.69 H, APTT 49 H, Phlebotomy Draw Site RAC 11/28/17 1020: pH 7.25 *L, pCO2 30 L, pO2 271 H, HCO3 13 L, ABG O2 Sat (Measured) 99.0, P-50 (Temp Corrected) N, Carboxyhemoglobin 0.5 L, O2 Concentration % 100%, Temperature 98.4, O2 Delivery Method NRB, Phlebotomy Draw Site RIGHT RADIAL 11/28/17 1012: Urine Opiates Screen < 100, Methadone Screen < 40, Barbiturate Screen < 60, Ur Phencyclidine Scrn < 6.00, Amphetamines Screen < 100, U Benzodiazepines Scrn < 85, Urine Cocaine Screen < 50, Urine Cannabis Screen > 80.00 H, Urinalysis LIGHT H, Urine Color BLDY H, Urine Clarity TURBD H, Urine pH 7.0, Ur Specific Dunlap 1.020, Urine Protein >=300 H, Urine Ketones 15 H, Urine Nitrite POS H , Urine Bilirubin [email or web address]@[email or web address], Urine Urobilinogen 4.0 H, Ur Leukocyte Esterase LARGE H, Ur Microscopic SEDIMENT EXAMINED, Urine RBC >75 H, Urine WBC > 75 H, Urine Bacteria MANY H, Micro UA Comment MORE INFO: H, Urine Hemoglobin LARGE H, Urine Glucose 250 H 11/28/17 1011: Anion Gap 29 H, Estimated GFR 30 L, BUN/Creatinine Ratio 24.3, Glucose 702 *H, Serum Osmolality 339 H, Lactic Acid 5.6 H, Calcium 8.3 L, Total Bilirubin 1.4 H, AST 61 H, ALT 26, Alkaline Phosphatase 297 H, Troponin I 0.06, Total Protein 5.8 L, Albumin 2.4 L, Globulin 3.4, Albumin/Globulin Ratio 0.7 L, CBC w Diff MAN DIFF ORDERED, RBC 5.10, MCV 82.5, MCH 27.0, MCHC 32.8 L, RDW 15.1 H , MPV 9.3, Gran % 92.8 H, Lymphocytes % 3.6 L, Monocytes % 3.6, Eosinophils % 0, Basophils % 0, Absolute Granulocytes 66.6 H, Segmented Neutrophils 77 H, Band Neutrophils 11 H, Absolute Lymphocytes 2.6, Lymphocytes 5 L, Monocytes 1 L, Absolute Monocytes 2.6 H, Absolute Eosinophils 0, Absolute Basophils 0, Metamyelocytes 2 H, Myelocytes 4 H, Platelet Estimate ADEQUATE, Normocytic RBCs VERIFIED, Normochromic RBCs VERIFIED, Salicylates < 1.0, Acetaminophen < 10.0 L, Serum Alcohol < 10.0 11/28/17 1007: Salicylates Cancelled, Acetaminophen Cancelled 11/28/17 0956: Serum Alcohol Cancelled Assessment/Plan CRCU Impression/Plan: HEENT: Normal EENT exam; pupils are myotic, EOMI, no nystagmus. HEAD is atraumatic. moist mucous membranes. Neck: Supple, no lymphadenopathy, Cardiovascular: Tachycardic, regular rhythm no murmurs rubs or gallops, normal JVP Respiratory: Chest nontender.There were no bony deformities, no asymmetry. No respiratory distress. . Breath sounds clear to auscultation bilaterally: NO W/R/ R Abdomen: Soft, nontender nondistended, no appreciable organomegaly. Normal bowel sounds. No rebound/guarding, No appreciable enlargement of the abdominal aorta, No ascites. Mild tenderness in the right lower quadrant Extremity: Trace edema, responsive to pain, ecchymosis noted to the right shoulder full range of motion of extremities, no obvious deformity normal and equal pulses bilaterally, 5 out of 5 strength noted to bilateral upper and lower extremities Neuro: Lethargic, responsive to verbal and painful stimuli, There were no obvious focal neurologic abnormalities. Skin: Decub stage I skin changes, multiple small skin lesions in the lower extremity and upper extremity highly suggestive of small septic emboli, a draining infected sebaceous cyst looking lesion in the posterior left thigh SIGNIFICANT DATA Blood work reviewed shows significant hyperglycemia, renal insufficiency with creatinine of 2.3, anion gap of 29 which is improving, serum osmolality elevated due to hyperglycemia, lactic acidosis from 5.6-3.8 after resuscitation, hyperphosphatemia, low albumin, altered LFTs with high bilirubin and alkaline phosphatase, normal salicylic acid and acetaminophen level, urine tox screen positive for marijuana and otherwise unremarkable. White count 71,000 hemoglobin 13 g significant left shift platelet 199 INR was elevated 11% bands with some immature cells ABG reviewed showed severe metabolic acidosis mixed venous gas reviewed as well Urinalysis showed bloody urine and many bacteria. CT scan of the head and neck was unremarkable no soft tissue mass cervical degeneration CT scan of the chest abdomen and pelvis reviewed bilateral pulmonary cavitary lesion highly suggestive of septic emboli differential diagnosis is broad, large mass with enlarged prostate. Last issues and the right is healed rectal. And soft tissue fullness involving the right gluteal region with cortical break in the right ischial tuberosity and the right inferior pubis. Patient has no history of trauma malignancy needs to be ruled out IMPRESSION This is a 47-year-old gentleman with previous history of diabetes, severe alcoholism has been sober for 6 months, severe depression in the past not on any medication, patient has not been using any drugs for moderate, marijuana positive in his urine (apparently his sister smokes in the same room) now comes in with significant lethargy worsening overall performance status with severe pain in the act and in the right posterior abdomen with the following issues * Severe sepsis multiple organ dysfunction and failure most likely related to sepsis and his lower abdomen including bladder infection with enlarged prostate rule out prostatitis with a mass lesion in the right lower pelvis probably bladder malignancy versus other malignancy which may need to be ruled out. Septic thrombophlebitis in that area needs to be ruled out * Diabetes now with severe hyperosmolar state with mild ketosis as well in a gentleman with type 2 diabetes * Multiple organ dysfunction including elevated INR, altered LFTs, electrolyte abnormality * Multiple lesions in the lung highly suggestive of septic emboli probably from the lower abdominal infection * Small skin lesions on both sides rule out endocarditis with metastatic lesions versus differential diagnoses being brought. * Large abscess probably infected sebaceous cyst in the left lower posterior thigh * Lethargy due to sepsis and hyperosmolar state no clinical evidence suggestive of active bacterial meningitis * So far no clinical evidence suggestive of intentional substance overdose RECOMMENDATION * Continue aggressive fluid resuscitation * Watch his sugar * Continue insulin drip * Continue urine output monitoring * Urine culture and cytology * Blood cultures have already been sent * Have cardiology see him today so that we could get an immediate echocardiogram to rule out bacterial endocarditis * Start vancomycin and Zosyn * Infectious disease, urology consult * Surgical consult to drain the abscess in the thigh and as well as a triple- lumen catheter * Vitamin K and FFP * IV proton pump inhibitor * We will rule out vasculitis which seems less likely including ESR, CRP, OSCAR, rheumatoid factor,ANCA panel, glomerular basement membrane antibody * Venodyne boots for now as his INR is elevated we will hold off on heparin for now * Lower extremity Doppler * Intubated if he gets worse * We'll decide on whether to biopsy this soft tissue lesion using a CT guidance the next day or 2. If his creatinine worsened to normalize he probably will have to get a CT scan of the lower abdomen with intravenous contrast to rule out any major abscess which may need to be drained * Rpt INR and if less than 2 will proceed with TLC if access is an issue * Prognosis is very poor discussed with his family extensively Time spent 60 minutes, Consult Acknowledgment - Thank you for your consult request.
--- NOTE | 2017-11-28 15:59 | Procedure ---
Minor Surgical Procedure Note Date of Procedure: 11/28/17 Procedure Note: Procedure: R IJ TLC insertion under ultrasound guidance Description: After consent was obtained, patient was placed in supine position in the hospital bed. Bed was then placed in trendelenburg position. Right side of his neck was prepped and drapped in sterile fashion. Ultrasound used to identify right IJ vein. 5 cc of 1% licodain was injected for local anesthetic. Finder needle was passed through the skin and into the IJ with good blood return. Syringe was removed and wire was passed through without difficulty. Needle was then removed. Skin arcelia was made with 11 blade scalpel and the introducer gena was passed over the wire. Gena was then rmeoed and the triple lumen catheter was inserted without difficulty to 16 cm. Guidewire was then removed. All three ports were flushed with 5 cc sterile saline. The catheter was then sutured into place with 3-0 silk suture and sterile dressing was applied. Patient tolerated procedure well. Stat CXR was ordered. Nursing will be notified when it is safe to use the line
[2017-11-28 16:00] VITALS: BP 110/60
--- NOTE | 2017-11-28 16:15 | Cons- Infect Disease ---
General Information and HPI Consulting Request Date of Consult: 11/28/17 Requested By: Anaya Walsh MD Reason for Consult: abx advice Source of Information: primary team Exam Limitations: clinical condition History of Present Illness: 37-year-old male history of diabetes hypertension previous alcohol abuse presents after he was found by his mother shaking in his computer chair. Over the past few weeks he's been complaining of worsening back pain and difficulty walking secondary to his back pain which is attributed to sciatica. His mother stated he's only been taking ibuprofen for the pain on arrival his blood sugars greater than 500 he's not on insulin. His mother states otherwise been in his normal state of health he is a former alcoholic she states she does not believe he is on any drugs. No history of withdrawal seizures however he has had history of bad withdrawal symptoms in the past. He has been sick for few months with severe depression. However in the past week he has been having significant back pain and he has essentially become bedbound. Since then he has had overall deterioration of his performance status. In the emergency room he has been lethargic but slowly improving after fluid resuscitation. He was found to be septic febrile and now being admitted to the ICU. In the emergency room he did have a Zabala placed which is draining bloody urine. In the ICU he has had multiple small skin lesions noted suggestive of septic emboli-like picture, a large abscess in the left posterior thighs suggestive of infected sebaceous cyst draining pus. He also had a decubiti. Allergies/Medications Allergies: Coded Allergies: NO KNOWN ALLERGIES (08/07/15) Home Med List: No Known Home Medications Current Medications: Current Medications Sig/[place] Start time Last Medication Dose Route Stop Time Status Admin Acetaminophen 650 MG Q6P PRN 11/28 1215 AC PO Acetaminophen 650 MG Q6P PRN 11/28 1200 DC PO Ceftazidime 0 .STK-MED ONE 11/28 1117 DC .ROUTE Ceftazidime 1,000 MG ONCE ONE 11/28 1100 DC 11/28 IV 11/28 1101 1120 Heparin Sodium 5,000 UNIT Q8 11/29 0600 CAN (Porcine) SC Insulin Human Regular 100 UNIT Q24H 11/28 1215 AC Sodium Chloride 100 ML IV Insulin Human Regular 100 UNIT ONCE ONE 11/28 1130 DC 11/28 Sodium Chloride 100 ML IV 11/28 1131 1150 Insulin Human Regular 10 UNITS ONCE ONE 11/28 1015 DC 11/28 IV 11/28 1016 1019 Lorazepam 0 Q1P PRN 11/28 1215 AC IV Naloxone HCl 2 MG ONCE ONE 11/28 1015 DC 11/28 IV 11/28 1016 1015 Naloxone HCl 0 .STK-MED ONE 11/28 1015 DC .ROUTE Non-Formulary 0 SEE ADMIN CRITERIA 11/28 1445 CAN Medication ANY Pantoprazole Sodium 40 MG DAILY 11/28 1501 AC IV Phytonadione 10 MG ONCE ONE 11/28 1415 DC 11/28 SC 11/28 1416 1405 Piperacillin Sod/ 3.375 GM Q6H 11/28 1445 AC 11/28 Tazobactam Sod IV 1536 Sodium Chloride 100 ML Potassium Chloride 20 MEQ Q8H 11/28 1200 AC 11/28 Sodium Chloride 1,000 ML IV 1220 Sodium Chloride 1,000 ML BOLUS ONE 11/28 1015 DC 11/28 IV 11/28 1114 1015 Sodium Chloride 1,000 ML BOLUS ONE 11/28 1015 DC 11/28 IV 11/28 1114 1048 Sodium Chloride 1,000 ML BOLUS ONE 11/28 1015 DC 11/28 IV 11/28 1114 1035 Vancomycin HCl 0 .STK-MED ONE 11/28 1117 DC .ROUTE Vancomycin HCl 1,000 MG ONCE ONE 11/28 1100 DC 11/28 Sodium Chloride 250 ML IV 11/28 1159 1120 Past History Travel History Traveled to [place] past 21 day No Medical History Blood Transfusion Hx: No Neurological: NONE EENT: NONE Cardiovascular: hypertension Respiratory: NONE Gastrointestinal: hiatal hernia Hepatic: NONE Renal: NONE Musculoskeletal: NONE Psychiatric: depression Endocrine: diabetes Blood Disorders: NONE 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 Home Services at Home: None Smoking Status: Never Smoked ETOH Use: denies use Illicit Drug Use: U Review of Systems Comments 12 points reviewed as noted, otherwise negative. Exam & Diagnostic Data Last 24 Hrs of Vital Signs/I&O Vital Signs Date Time Temp Pulse Resp B/P B/P Pulse O2 O2 Flow FiO2 Mean Ox Delivery Rate 11/28 1425 95 Nasal 2.0L Cannula 11/28 1320 99.3 124 40 104/60 95 Nasal 2.0L Cannula 11/28 1257 98.3 123 20 116/55 98 Room Air 11/28 1219 121 20 116/62 97 Nasal 4.0L Cannula 11/28 1152 98.5 121 20 124/60 99 Nasal 4.0L Cannula 11/28 1135 118 20 123/59 99 Nasal 4.0L Cannula 11/28 1128 98 Nasal 4.0L Cannula 11/28 1121 123 20 125/61 100 Nasal 4.0L Cannula 11/28 1106 124 24 119/63 100 Nasal 4.0L Cannula 11/28 1041 126 30 124/59 98 Nasal 4.0L Cannula 11/28 1031 127 20 131/58 99 Nasal 4.0L Cannula 11/28 1017 98.4 122 40 100 Non 100% ReBreather 11/28 0956 40 86/48 Intake & Output 11/28 1600 11/28 0800 11/28 0000 Intake Total 4223 Output Total 50 Balance 4173 Intake, IV 4223 Intake, Oral 0 Number 1 Bowel Movements Output, Urine 50 Patient 198 lb Weight Weight Bed scale Measurement Method Physical Exam Other Physical Findings: GEN: Acutely ill, well nourishd HEENT: AT; moist mucous membranes, edentulous Neck: Supple, no lymphadenopathy,R TLC in place Cardiovascular: Tachycardic, regular rhythm no murmurauscultated Respiratory: Chest nontender.There were no bony deformities, no asymmetry. No respiratory distress. . Breath sounds clear to auscultation bilaterally: NO W/R/ R Abdomen: Soft, nontender. Normal bowel sounds. Extremity: Trace edema, responsive to pain, ecchymosis noted to the right shoulder full range of motion of extremities, no obvious deformity normal and equal pulses bilaterally Neuro: Lethargic, responsive to verbal and painful stimuli Skin: Decub stage I skin changes, multiple small skin lesions (folliculitis) in the lower extremity and open lesion posterior left thigh w/ surrounding erythema (? sebaceous cyst s/p I&D) Last 24 Hours of Lab Results: Laboratory Tests 11/28 11/28 11/28 1237 1237 1124 Chemistry Sodium (137 - 145 mmol/L) 135 L Potassium (3.5 - 5.1 mmol/L) 4.0 Chloride (98 - 107 mmol/L) 99 Carbon Dioxide (22 - 30 mmol/L) 16 L Anion Gap (5 - 16) 20 H BUN (9 - 20 mg/dL) 57 H Creatinine (0.7 - 1.2 mg/dL) 2.0 H Estimated GFR (>60 ml/min) 36 L BUN/Creatinine Ratio (7 - 25 %) 28.5 H Glucose (65 - 99 mg/dL) 557 *H Lactic Acid (0.7 - 2.1 mmol/L) 3.8 H Phosphorus (2.5 - 4.5 mg/dL) 6.3 H Magnesium (1.6 - 2.3 mg/dL) 2.2 Total PSA (0.00 - 4.00 ng/mL) 0.19 Toxicology Acetone Level (NEGATIVE) POSITIVE AT 1:16 DIL 11/28 11/28 1040 1020 Blood Gas pH (7.35 - 7.45 PH) 7.25 *L pCO2 (35 - 45 TORR) 30 L pO2 (80 - 100 TORR) 271 H HCO3 (21 - 28 MEQ/L) 13 L Bicarbonate Actual (22 - 26 MEQ/L) 14 L ABG O2 Sat (Measured) (>96.0 %) 99.0 Mixed VBG pH (7.31 - 7.41 PH) 7.19 L Mixed VBG pCO2 (41 - 51 TORR) 38 L Mixed VBG O2 Saturation (35 - 45 TORR) 48 H P-50 (Temp Corrected) N N Carboxyhemoglobin (1.5 - 5.0 %) 0.9 L 0.5 L O2 Concentration % 100% 100% Temperature (97.0 - 100.0 FARH) 98.4 98.4 O2 Delivery Method NRB NRB Coagulation PT (9.4 - 12.5 SEC) 40.7 H INR (0.90 - 1.17) 3.69 H APTT (25 - 37 SEC) 49 H Miscellaneous Phlebotomy Draw Site RAC RIGHT RADIAL 11/28 11/28 1012 1011 Chemistry Sodium (137 - 145 mmol/L) 133 L Potassium (3.5 - 5.1 mmol/L) 5.1 Chloride (98 - 107 mmol/L) 90 L Carbon Dioxide (22 - 30 mmol/L) 14 L Anion Gap (5 - 16) 29 H BUN (9 - 20 mg/dL) 56 H Creatinine (0.7 - 1.2 mg/dL) 2.3 H Estimated GFR (>60 ml/min) 30 L BUN/Creatinine Ratio (7 - 25 %) 24.3 Glucose (65 - 99 mg/dL) 702 *H Serum Osmolality (285 - 295 MOSM/KG) 339 H Lactic Acid (0.7 - 2.1 mmol/L) 5.6 H Calcium (8.4 - 10.2 mg/dL) 8.3 L Total Bilirubin (0.2 - 1.3 mg/dL) 1.4 H AST (17 - 59 U/L) 61 H ALT (21 - 72 U/L) 26 Alkaline Phosphatase (< 127 U/L) 297 H Troponin I (<0.11 ng/ml) 0.06 Total Protein (6.3 - 8.2 g/dL) 5.8 L Albumin (3.5 - 5.0 g/dL) 2.4 L Globulin (1.9 - 4.2 gm/dL) 3.4 Albumin/Globulin Ratio (1.1 - 2.2 %) 0.7 L Hematology CBC w Diff MAN DIFF ORDERED WBC (4.8 - 10.8 /CUMM) 71.8 *H RBC (4.70 - 6.10 /CUMM) 5.10 Hgb (14.0 - 18.0 G/DL) 13.8 L Hct (42 - 52 %) 42.0 MCV (80.0 - 94.0 FL) 82.5 MCH (27.0 - 31.0 PG) 27.0 MCHC (33.0 - 37.0 G/DL) 32.8 L RDW (11.5 - 14.5 %) 15.1 H Plt Count (130 - 400 /CUMM) 199 MPV (7.4 - 10.4 FL) 9.3 Gran % (42.2 - 75.2 %) 92.8 H Lymphocytes % (20.5 - 51.1 %) 3.6 L Monocytes % (1.7 - 9.3 %) 3.6 Eosinophils % (0 - 5 %) 0 Basophils % (0.0 - 2.0 %) 0 Absolute Granulocytes (1.4 - 6.5 /CUMM) 66.6 H Segmented Neutrophils (42.2 - 75.2 %) 77 H Band Neutrophils (0.0 - 5.0 %) 11 H Absolute Lymphocytes (1.2 - 3.4 /CUMM) 2.6 Lymphocytes (20.5 - 51.1 %) 5 L Monocytes (1.7 - 9.3 %) 1 L Absolute Monocytes (0.10 - 0.60 /CUMM) 2.6 H Absolute Eosinophils (0.0 - 0.7 /CUMM) 0 Absolute Basophils (0.0 - 0.2 /CUMM) 0 Metamyelocytes (0.0 - 1.0 %) 2 H Myelocytes (0 - 0 %) 4 H Platelet Estimate (ADEQUATE) ADEQUATE Normocytic RBCs VERIFIED Normochromic RBCs VERIFIED Toxicology Salicylates (0 - 20.0 mg/dL) < 1.0 Urine Opiates Screen (>2000 NG/ML) < 100 Methadone Screen (>300 NG/ML) < 40 Acetaminophen (10.0 - 30.0 ug/mL) < 10.0 L Barbiturate Screen (>200 NG/ML) < 60 Ur Phencyclidine Scrn (>25 NG/ML) < 6.00 Amphetamines Screen (>1000 NG/ML) < 100 U Benzodiazepines Scrn (>200 NG/ML) < 85 Urine Cocaine Screen (>300 NG/ML) < 50 Urine Cannabis Screen (>50 NG/ML) > 80.00 H Serum Alcohol (<10 MG/DL) < 10.0 Urines Urinalysis LIGHT H Urine Color (YEL,AMB,STR) BLDY H Urine Clarity (CLEAR) TURBD H Urine pH (5.0 - 8.0) 7.0 Ur Specific [place] (1.001 - 1.035) 1.020 Urine Protein (NEG,<30 MG/DL) >=300 H Urine Ketones (NEG) 15 H Urine Nitrite (NEG) POS H Urine Bilirubin (NEG) NEG@ICTO Urine Urobilinogen (0.1 - 1.0 EU/dl) 4.0 H Ur Leukocyte Esterase (NEG) LARGE H Ur Microscopic SEDIMENT EXAMINED Urine RBC (0 - 5 /HPF) >75 H Urine WBC (0 - 2 /HPF) > 75 H Urine Bacteria (NEG/NONE) MANY H Micro UA Comment MORE INFO: H Urine Hemoglobin (NEG) LARGE H Urine Glucose (N MG/DL) 250 H 11/28 11/28 1007 0956 Toxicology Salicylates Cancelled Acetaminophen Cancelled Serum Alcohol Cancelled Last 24 Hours of Rl Results: SPEC #: [id number] AUGIE: 11/28/17 STATUS: RECD RECD: 11/28/[address]: Paras Gautam SOURCE: BLOOD ENTR: 11/28/170954 OTHR DR: Emilio Kim DO SPDESC: 1ST/VENOUS ORDERED: BLOOD CULTURE Procedure Result BLOOD CULTURE PENDING SPEC #: [id number] AUGIE: 11/28/171420 STATUS: RECD RECD: 11/28/[address]: Sheryl REYNOLDS,Afaf SOURCE: EXTREMITIE ENTR: 11/28/1714[address]: Nico REYNOLDS,Anaya SPDESC: LEG RT UPR Emilio Kim DO ORDERED: AN02 ADDON, XTRM CULT COMMENT: TYPE OF SPECIMEN: SUPERFICIAL URINE; WATING FOR CONFIMATION; CONFIRMED THAT IT'S ABSCESS COUPLE DROPS OF BLOODY PUS RECEIVED IN STERIL CUP Procedure Result AN02 ADDON PENDING XTRM CULT PENDING Diagnostic Data Recent Imaging Findings: CT OF THE CERVICAL SPINE: Moderate mid to lower cervical dextroscoliosis is present. Significant facet degenerative changes are noted at C3-C4 on the left. [id number] spondylosis related changes are noted at C5-C6, C6-C7 and to a lesser extent C3-C4. There is reversal of midcervical lordosis present. The prespinal soft tissues appear unremarkable. There is no superimposed acute fracture or subluxation present. IMPRESSION: 1. No acute intracranial pathology. 2. No CT evidence of any acute fracture no subluxation or dislocation or prespinal soft tissue hematoma present at the cervical spine. 3. Moderate mid to lower cervical dextroscoliosis, significant facet degenerative arthritic changes at C3-C4 on the left and mild to moderate multilevel spondylosis, and reversal of midcervical lordosis present. DICTATED BY: Bertrand Toure MD DATE/TIME DICTATED:11/28/171116 SUPERVISOR HAND SILVERING:MONIK DATE/TIME TRANSCRIBED:11/28/171116 CONFIDENTIAL, DO NOT COPY WITHOUT APPROPRIATE AUTHORIZATION. <Electronically signed in Other Vendor System> SIGNED BY: Bertrand Toure MD [id number] CT A/P IMPRESSION: 1. Multiple bilateral pulmonary cavitary and few solid lesions are present, as described above. Differential includes metastatic disease versus infection, inflammation including septic pulmonary emboli. Clinical, lab correlation as appropriate is recommended. 2. Limited evaluation of the abdomen and pelvis shows mild fullness of the right ureter and nonspecific stranding around the collapsed urinary bladder and mildly enlarged prostate, and lobulated soft tissue mass within the right ischiorectal fossa and soft tissue fullness involving the right gluteal region and cortical break of the right ischial tuberosity and right inferior pubic ramus. The findings within the pelvis may represent posttraumatic changes, however, differential includes neoplasm as well. This critical result was discussed with RAYMUNDO Marie at 11:57 AM on 11/28/2017 and it was ascertained that the content and urgency of the report was understood at the time of direct communication. DICTATED BY: Bertrand Toure MD DATE/TIME DICTATED:11/28/171132 SUPERVISOR HAND SILVERING:MONIK DATE/TIME TRANSCRIBED:11/28/171132 Assessment/Plan Assessment/Plan Impression: 47-year-old M with previous history of diabetes, severe alcoholism, severe depression, ?marijuana use admitted with sepsis w/ multiple organ dysfunction. Unclear if history of IVDA or skin popping. 1. UTI/bladder infection with enlarged prostate, question prostatitis; CT A/P revealing mass lesion in the right lower pelvis raising the question of malignancy. 2. Multiple lesions in the lung highly suggestive of septic emboli; r/o infective endocarditis 3. Large abscess left lower posterior thigh 4. Leukemoid reaction Suggestion: 1. F/U culture results; broad abx coverage with iv Vancomycin/Ceftazidime/Flagyl pending above. 2. 2 D Echo (in progress)/MAAME eval vegetations. 3. F/U pulm recom. 4. Diagnostic eval of the lobulated soft tissue mass is identified within the right ischiorectal fossa; IR consult for CT guided biopsy if feasible. 4. Trend CBC, BMP. ESR, LDH and uric acid level in am. Consider hem and neuro eval. 4. HIV, hep B and C screening serology. Consult Acknowledgment - Thank you for your consult request. Consult Acknowledgment - Thank you for your consult request.
--- NOTE | 2017-11-28 16:25 | Cons- General Surgery ---
General Information and HPI Consulting Request Date of Consult: 11/28/17 Requested By: Anaya Walsh MD Reason for Consult: RIGHT THIGH ABSCESS Source of Information: family, old records Exam Limitations: unable to give history History of Present Illness: 47 year old male presented to the ED after beign found by family confused and barely responsive. Patient admitted to the ICU for further care. Found to have an ulcerated area on posterior left thigh. Asked to evaluate the patient for possible abscess and the need for incision and drainage. Unable to obtain much of history from patient as he is not very responsive currently and the family was unaware of this wound. Allergies/Medications Allergies: Coded Allergies: NO KNOWN ALLERGIES (08/07/15) Home Med List: No Known Home Medications Current Medications: Current Medications Sig/[place] Start time Last Medication Dose Route Stop Time Status Admin Acetaminophen 650 MG Q6P PRN 11/28 1215 AC PO Acetaminophen 650 MG Q6P PRN 11/28 1200 DC PO Ceftazidime 0 .STK-MED ONE 11/28 1117 DC .ROUTE Ceftazidime 1,000 MG ONCE ONE 11/28 1100 DC 11/28 IV 11/28 1101 1120 Heparin Sodium 5,000 UNIT Q8 11/29 0600 CAN (Porcine) SC Insulin Human Regular 100 UNIT Q24H 11/28 1215 AC Sodium Chloride 100 ML IV Insulin Human Regular 100 UNIT ONCE ONE 11/28 1130 DC 11/28 Sodium Chloride 100 ML IV 11/28 1131 1150 Insulin Human Regular 10 UNITS ONCE ONE 11/28 1015 DC 11/28 IV 11/28 1016 1019 Lorazepam 0 Q1P PRN 11/28 1215 AC IV Naloxone HCl 2 MG ONCE ONE 11/28 1015 DC 11/28 IV 11/28 1016 1015 Naloxone HCl 0 .STK-MED ONE 11/28 1015 DC .ROUTE Non-Formulary 0 SEE ADMIN CRITERIA 11/28 1445 CAN Medication ANY Pantoprazole Sodium 40 MG DAILY 11/28 1501 AC IV Phytonadione 10 MG ONCE ONE 11/28 1415 DC 11/28 SC 11/28 1416 1405 Piperacillin Sod/ 3.375 GM Q6H 11/28 1445 AC 11/28 Tazobactam Sod IV 1536 Sodium Chloride 100 ML Potassium Chloride 20 MEQ Q8H 11/28 1200 AC 11/28 Sodium Chloride 1,000 ML IV 1220 Sodium Chloride 1,000 ML BOLUS ONE 11/28 1015 DC 11/28 IV 11/28 1114 1015 Sodium Chloride 1,000 ML BOLUS ONE 11/28 1015 DC 11/28 IV 11/28 1114 1048 Sodium Chloride 1,000 ML BOLUS ONE 11/28 1015 DC 11/28 IV 11/28 1114 1035 Vancomycin HCl 0 .STK-MED ONE 11/28 1117 DC .ROUTE Vancomycin HCl 1,000 MG ONCE ONE 11/28 1100 DC 11/28 Sodium Chloride 250 ML IV 11/28 1159 1120 Past History Medical History Blood Transfusion Hx: No Neurological: NONE EENT: NONE Cardiovascular: hypertension Respiratory: NONE Gastrointestinal: hiatal hernia Hepatic: NONE Renal: NONE Musculoskeletal: NONE Psychiatric: depression Endocrine: diabetes Blood Disorders: NONE Cancer(s): 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 Home Services at Home: None Smoking Status: Never Smoked ETOH Use: denies use Illicit Drug Use: marijuana Living Will? no Review of Systems Review of Systems: Unable to obtain at the current time due to patient's mental status. Exam & Diagnostic Data Vital Signs and I&O Vital Signs Date Time Temp Pulse Resp B/P B/P Pulse O2 O2 Flow FiO2 Mean Ox Delivery Rate 11/28 1425 95 Nasal 2.0L Cannula 11/28 1320 99.3 124 40 104/60 95 Nasal 2.0L Cannula 11/28 1257 98.3 123 20 116/55 98 Room Air 11/28 1219 121 20 116/62 97 Nasal 4.0L Cannula 11/28 1152 98.5 121 20 124/60 99 Nasal 4.0L Cannula 11/28 1135 118 20 123/59 99 Nasal 4.0L Cannula 11/28 1128 98 Nasal 4.0L Cannula 11/28 1121 123 20 125/61 100 Nasal 4.0L Cannula 11/28 1106 124 24 119/63 100 Nasal 4.0L Cannula 11/28 1041 126 30 124/59 98 Nasal 4.0L Cannula 11/28 1031 127 20 131/58 99 Nasal 4.0L Cannula 11/28 1017 98.4 122 40 100 Non 100% ReBreather 11/28 0956 40 86/48 Intake & Output 11/28 0800 11/28 0000 11/27 0811/27 0000 Intake Total 4223 Output Total 50 Balance 4173 Intake, IV 4223 Intake, Oral 0 Number 1 Bowel Movements Output, Urine 50 Patient 198 lb Weight Weight Bed scale Measurement Method Physical Exam General Appearance: no apparent distress, lethargic Head: atraumatic, normal appearance Neck: supple Respiratory: normal breath sounds Cardiovascular: tachycardia Gastrointestinal: soft, distention Back: normal inspection Extremities: left lower extremity posterior thigh there is an area about 3 x 3 cm that appears to be ulcerated and fluctuant with minimal surrounding erythema. Skin: normal color Last 24 Hours of Labs: Laboratory Tests 11/28 11/28 11/28 1237 1237 1124 Chemistry Sodium (137 - 145 mmol/L) 135 L Potassium (3.5 - 5.1 mmol/L) 4.0 Chloride (98 - 107 mmol/L) 99 Carbon Dioxide (22 - 30 mmol/L) 16 L Anion Gap (5 - 16) 20 H BUN (9 - 20 mg/dL) 57 H Creatinine (0.7 - 1.2 mg/dL) 2.0 H Estimated GFR (>60 ml/min) 36 L BUN/Creatinine Ratio (7 - 25 %) 28.5 H Glucose (65 - 99 mg/dL) 557 *H Lactic Acid (0.7 - 2.1 mmol/L) 3.8 H Phosphorus (2.5 - 4.5 mg/dL) 6.3 H Magnesium (1.6 - 2.3 mg/dL) 2.2 Total PSA (0.00 - 4.00 ng/mL) 0.19 Toxicology Acetone Level (NEGATIVE) POSITIVE AT 1:16 DIL 11/28 11/28 1040 1020 Blood Gas pH (7.35 - 7.45 PH) 7.25 *L pCO2 (35 - 45 TORR) 30 L pO2 (80 - 100 TORR) 271 H HCO3 (21 - 28 MEQ/L) 13 L Bicarbonate Actual (22 - 26 MEQ/L) 14 L ABG O2 Sat (Measured) (>96.0 %) 99.0 Mixed VBG pH (7.31 - 7.41 PH) 7.19 L Mixed VBG pCO2 (41 - 51 TORR) 38 L Mixed VBG O2 Saturation (35 - 45 TORR) 48 H P-50 (Temp Corrected) N N Carboxyhemoglobin (1.5 - 5.0 %) 0.9 L 0.5 L O2 Concentration % 100% 100% Temperature (97.0 - 100.0 FARH) 98.4 98.4 O2 Delivery Method NRB NRB Coagulation PT (9.4 - 12.5 SEC) 40.7 H INR (0.90 - 1.17) 3.69 H APTT (25 - 37 SEC) 49 H Miscellaneous Phlebotomy Draw Site RAC RIGHT RADIAL 11/28 11/28 1012 1011 Chemistry Sodium (137 - 145 mmol/L) 133 L Potassium (3.5 - 5.1 mmol/L) 5.1 Chloride (98 - 107 mmol/L) 90 L Carbon Dioxide (22 - 30 mmol/L) 14 L Anion Gap (5 - 16) 29 H BUN (9 - 20 mg/dL) 56 H Creatinine (0.7 - 1.2 mg/dL) 2.3 H Estimated GFR (>60 ml/min) 30 L BUN/Creatinine Ratio (7 - 25 %) 24.3 Glucose (65 - 99 mg/dL) 702 *H Hemoglobin A1c (4.2 - 5.8 %) Pending Serum Osmolality (285 - 295 MOSM/KG) 339 H Lactic Acid (0.7 - 2.1 mmol/L) 5.6 H Calcium (8.4 - 10.2 mg/dL) 8.3 L Total Bilirubin (0.2 - 1.3 mg/dL) 1.4 H AST (17 - 59 U/L) 61 H ALT (21 - 72 U/L) 26 Alkaline Phosphatase (< 127 U/L) 297 H Troponin I (<0.11 ng/ml) 0.06 Total Protein (6.3 - 8.2 g/dL) 5.8 L Albumin (3.5 - 5.0 g/dL) 2.4 L Globulin (1.9 - 4.2 gm/dL) 3.4 Albumin/Globulin Ratio (1.1 - 2.2 %) 0.7 L Hematology CBC w Diff MAN DIFF ORDERED WBC (4.8 - 10.8 /CUMM) 71.8 *H RBC (4.70 - 6.10 /CUMM) 5.10 Hgb (14.0 - 18.0 G/DL) 13.8 L Hct (42 - 52 %) 42.0 MCV (80.0 - 94.0 FL) 82.5 MCH (27.0 - 31.0 PG) 27.0 MCHC (33.0 - 37.0 G/DL) 32.8 L RDW (11.5 - 14.5 %) 15.1 H Plt Count (130 - 400 /CUMM) 199 MPV (7.4 - 10.4 FL) 9.3 Gran % (42.2 - 75.2 %) 92.8 H Lymphocytes % (20.5 - 51.1 %) 3.6 L Monocytes % (1.7 - 9.3 %) 3.6 Eosinophils % (0 - 5 %) 0 Basophils % (0.0 - 2.0 %) 0 Absolute Granulocytes (1.4 - 6.5 /CUMM) 66.6 H Segmented Neutrophils (42.2 - 75.2 %) 77 H Band Neutrophils (0.0 - 5.0 %) 11 H Absolute Lymphocytes (1.2 - 3.4 /CUMM) 2.6 Lymphocytes (20.5 - 51.1 %) 5 L Monocytes (1.7 - 9.3 %) 1 L Absolute Monocytes (0.10 - 0.60 /CUMM) 2.6 H Absolute Eosinophils (0.0 - 0.7 /CUMM) 0 Absolute Basophils (0.0 - 0.2 /CUMM) 0 Metamyelocytes (0.0 - 1.0 %) 2 H Myelocytes (0 - 0 %) 4 H Platelet Estimate (ADEQUATE) ADEQUATE Normocytic RBCs VERIFIED Normochromic RBCs VERIFIED Toxicology Salicylates (0 - 20.0 mg/dL) < 1.0 Urine Opiates Screen (>2000 NG/ML) < 100 Methadone Screen (>300 NG/ML) < 40 Acetaminophen (10.0 - 30.0 ug/mL) < 10.0 L Barbiturate Screen (>200 NG/ML) < 60 Ur Phencyclidine Scrn (>25 NG/ML) < 6.00 Amphetamines Screen (>1000 NG/ML) < 100 U Benzodiazepines Scrn (>200 NG/ML) < 85 Urine Cocaine Screen (>300 NG/ML) < 50 Urine Cannabis Screen (>50 NG/ML) > 80.00 H Serum Alcohol (<10 MG/DL) < 10.0 Urines Urinalysis LIGHT H Urine Color (YEL,AMB,STR) BLDY H Urine Clarity (CLEAR) TURBD H Urine pH (5.0 - 8.0) 7.0 Ur Specific [place] (1.001 - 1.035) 1.020 Urine Protein (NEG,<30 MG/DL) >=300 H Urine Ketones (NEG) 15 H Urine Nitrite (NEG) POS H Urine Bilirubin (NEG) NEG@ICTO Urine Urobilinogen (0.1 - 1.0 EU/dl) 4.0 H Ur Leukocyte Esterase (NEG) LARGE H Ur Microscopic SEDIMENT EXAMINED Urine RBC (0 - 5 /HPF) >75 H Urine WBC (0 - 2 /HPF) > 75 H Urine Bacteria (NEG/NONE) MANY H Micro UA Comment MORE INFO: H Urine Hemoglobin (NEG) LARGE H Urine Glucose (N MG/DL) 250 H 11/28 11/28 1007 0956 Toxicology Salicylates Cancelled Acetaminophen Cancelled Serum Alcohol Cancelled Imaging Results: CT scan reviewed Assessment/Plan Assessment/Plan Left posterior thigh ulceration/abscess mental status the area of abscess was prepped with alcohol and a generous incision was made over the patient's area of ulceration. Copious amount of purulent fluid was expressed. Fluid cultures were taken. The area was dressed with sterile dressing. as needed. Problem List: 1. Abscess of left thigh Consult Acknowledgment - Thank you for your consult request.
--- NOTE | 2017-11-28 16:42 | RADIOLOGY REPORT ---
EXAMINATION: XR PORTABLE CHEST CLINICAL INFORMATION: Central line placement COMPARISON: 11/28/[address] scan TECHNIQUE: Portable AP view of the chest was obtained. FINDINGS: Hypoventilatory exam. The cardiomediastinal silhouette is unremarkable. There is a right IJ central venous catheter in place with its tip projecting over the distal SVC. There is a 1.4 cm cavitary lesion in the lateral right mid lung, which is overlapped by the EKG lead. The other pulmonary findings seen on the comparison CT scan cannot be clearly seen on this exam. No pneumothorax. No sizable pleural effusion. IMPRESSION: Right IJ central venous catheter is in place. No pneumothorax.
--- NOTE | 2017-11-28 17:05 | Cons- Cardiology ---
General Information and HPI Consulting Request Date of Consult: 11/28/17 Requested By: Anaya Walsh MD History of Present Illness: Mr. No is a 47 year old male with history of diabetes and hypertension who was brought to the ER for evaluation of mental status changes. The patient was initially very lethargic but could respond to some questions but now is unresponsive. This morning the patient's family went to the patient's bedroom and found him sitting on the chair in front of his computer unresponsive. He was noted to have non-purposeful movement of his upper extremity and he was incontinent of urine and stool. According to family, patient complained of a severe right lower back pain which he was attributing to sciatica. He has not been eating well and had lost weight. Per family, this patient was depressed after breaking up with his fiance. He also lost his job and his insurance last year. As such, he was not seen by his primary care physician and he stopped taking metformin and he didn't get his blood sugar checked since last year. His last refill for metformin was at February. The patient himself reports a right lower quadrant pain. He couldn't qualify the nature of the pain or its severity given his current status. He also reported pain upon urination. The patient reportedly had a drinking habit due to his depression but stopped drinkiing about 5 months ago. He denied chest pain or shortness fo breath. Workup included a chest CT that showed multiple bilateral cavitary and solid lung lesions with increased WBC count. A purulent urine was also noted and finally this patient has a highly elevated blood glucose. 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 Home Services at Home: None Smoking Status: Never Smoked ETOH Use: denies use Illicit Drug Use: marijuana Living Will? no Exam & Diagnostic Data Vital Signs and I&O Vital Signs Date Time Temp Pulse Resp B/P B/P Pulse O2 O2 Flow FiO2 Mean Ox Delivery Rate 11/28 1425 95 Nasal 2.0L Cannula 11/28 1320 99.3 124 40 104/60 95 Nasal 2.0L Cannula 11/28 1257 98.3 123 20 116/55 98 Room Air 11/28 1219 121 20 116/62 97 Nasal 4.0L Cannula 11/28 1152 98.5 121 20 124/60 99 Nasal 4.0L Cannula 11/28 1135 118 20 123/59 99 Nasal 4.0L Cannula 11/28 1128 98 Nasal 4.0L Cannula 11/28 1121 123 20 125/61 100 Nasal 4.0L Cannula 11/28 1106 124 24 119/63 100 Nasal 4.0L Cannula 11/28 1041 126 30 124/59 98 Nasal 4.0L Cannula 11/28 1031 127 20 131/58 99 Nasal 4.0L Cannula 11/28 1017 98.4 122 40 100 Non 100% ReBreather 11/28 0956 40 86/48 Intake & Output 11/28 1600 11/28 0800 11/28 0000 11/27 1600 11/27 0800 11/27 0000 Intake Total 4223 Output Total 50 Balance 4173 Intake, IV 4223 Intake, Oral 0 Number 1 Bowel Movements Output, Urine 50 Patient 198 lb Weight Weight Bed scale Measurement Method Physical Exam: General: WD/overeweight male in NAD; unresponsive HEENT: NC/AT Neck: no JVD, no carotid bruit Heart: RRR w/o murmur Lungs: clear bilaterally anteriorly Abdomen: soft, NT, +ve bowel sounds Extremities: no edema, lesion on left thigh Assessment/Plan Assessment/Plan * This patient has a normal, if not hyperdynamic EF without evidence of decompensated heart failure. He is noted to have compression of the atria of the heart and this compression appears to be external but cannot be well discerned by this study. The cardiac valves appear clean. If a high suspicion of endocarditis then a MAAME can be obtained later in the week. It appears that this patient has a couple potential sources of infection however. Continue antibiotic therapy and await culture results. * This patient has a normal EF and would not be expected to have a malignant dysrhythmia causing his mental status changes. His mental lethargy is likely related to a hyperosmolar state. Consult Acknowledgment - Thank you for your consult request.
[2017-11-28 17:23] LABS: ABSOLUTE BASOPHIL COUNT 0 /CUMM (0.0-0.2); ABSOLUTE EOSINOPHIL COUNT 0 /CUMM (0.0-0.7); ABSOLUTE LYMPH COUNT 1.4 /CUMM (1.2-3.4); BASOPHIL % 0.1 % (0.0-2.0); EOSINOPHIL % 0 % (0-5); MEAN CORPUSCULAR HGB 27.4 PG (27.0-31.0); MEAN CORPUSCULAR HGB CONC 33.6 G/DL (33.0-37.0); MEAN CORPUSCULAR VOLUME 81.4 FL (80.0-94.0); MEAN PLATELET VOLUME 8.6 FL (7.4-10.4); PLATELET COUNT 152 /CUMM (130-400)
[2017-11-28 17:29] LABS: HEMATOCRIT 33.2 % (42-52); RED BLOOD CELL CT 4.07 /CUMM (4.70-6.10)
[2017-11-28 17:31] LABS: GRANULOCYTE % 93.6 % (42.2-75.2); WHITE BLOOD CELL COUNT 53.4 /CUMM (4.8-10.8)
--- NOTE | 2017-11-28 17:56 | ULTRASOUND REPORT ---
EXAMINATION: US ABDOMEN LIMITED CLINICAL INFORMATION: 47-year-old male with abdominal pain and elevated LFT. COMPARISON: CT of the chest, abdomen and pelvis done earlier today. TECHNIQUE: Real-time imaging of the right upper quadrant abdominal viscera. FINDINGS: PANCREAS: Nonvisualized due to overlying bowel gas, accordingly not evaluated. LIVER: Mild nonspecific periportal hyperechogenicity is noted, may represent subtle cholangitis. No discrete focal intrahepatic abnormality present. GALLBLADDER: Normal. The gallbladder is physiologically distended without evidence of stones, sludge, polyps, wall thickening or pericholecystic fluid. COMMON BILE DUCT: Normal in caliber measuring 0.4 cm in diameter. RIGHT KIDNEY: Mild fullness of the right renal collecting system is noted. There is a subtle echogenic focus identified at the inferior pole without any definite acoustic shadowing, may represent prominent fat and less likely to be nonobstructing radiolucent calculus, measures 0.7 cm. The kidney measures 12.2 cm in maximum dimension. FREE FLUID: None. IMPRESSION: 1. Nonvisualized pancreas due to overlying bowel gas. 2. Subtle mild nonspecific periportal hyperechogenicity is noted, may represent subtle cholangitis. 3. Mild fullness of the right renal collecting system. 4. Subtle echogenic focus at the inferior pole without any acoustic shadowing, may represent prominent fat within the renal sinus and less likely to be nonobstructing radiolucent calculus.
--- NOTE | 2017-11-28 19:12 | ECHOCARDIOGRAM REPORT ---
LUANNSINGH CARRILLO Age: 47 : 1970 Gender: M Exam Date: 11/28/2017 15:59 Exam Location: [facility] Ht (in): 68 Wt (lb): 198 BSA: 2.10 BP: 104 / 60 Ordering Physician: Onur Lorenzo MD Referring Physician: Onur Lorenzo MD Technologist: Deepthi Sifuentes [facility] Room Number: 105 Indications: Rhythm: Sinus Technical Quality: adequate FINDINGS Left Ventricle Normal left ventricular size, wall thickness and systolic function with no obvious regional wall motion abnormalities. Normal left ventricular diastolic filling pattern for age. The ejection fraction is visually estimated at 70%. Right Ventricle The right ventricle is normal in size and function. Right Atrium The right atrium appears to be compressed externally. Left Atrium The left atrium is normal in size and appears to be compressed externally. The interatrial septum is intact. Mitral Valve The mitral valve is normal in structure and function. There is trace mitral regurgitation. Aortic Valve Structurally normal aortic valve without significant sclerosis or stenosis. There is no aortic regurgitation. Tricuspid Valve The tricuspid valve is normal in structure and function. There is no tricuspid regurgitation. Pulmonic Valve Structurally normal pulmonic valve. There is no pulmonic regurgitation. Pericardium Normal pericardium without effusion. No pleural effusion. Great Vessels Normal aortic root dimension. The aortic arch and great vessels are well seen and are normal. CONCLUSIONS 1. Hyperdynamic left ventricle with EF of 70%. 2. Trace mitral regurgitation. 3. No valvular vegetations noted. 4. The atria of the heart appear to be externally compressed. 5. Consider a MAAME is high suspicion of endocarditis. Dexter Sanderson M.D. (Electronically Signed) Final Date: 28 Nov 2017 19:11 MEASUREMENTS (Male / Female) Normal Values 2D ECHO LV Diastolic Diameter PLAX 4.3 cm 4.2 - 5.9 / 3.9 - 5.3 cm LV Systolic Diameter PLAX 2.7 cm 2.1 - 4.0 cm LV Fractional Shortening PLAX 37.2 % 25 - 46 % LV Ejection Fraction 2D Teich 67.5 % IVS Diastolic Thickness 1.2 cm LVPW Diastolic Thickness 1.2 cm LV Relative Wall Thickness 0.6 LVOT Diameter 2.0 cm Aortic Root Diameter 3.1 cm LA Systolic Diameter LX 3.6 cm 3.0 - 4.0 / 2.7 - 3.8 cm LA Volume 49.0 cm 18 - 58 / 22 - 52 cm DOPPLER AV Peak Velocity 163.0 cm/s AV Peak Gradient 10.6 mmHg LVOT Peak Velocity 139.0 cm/s LVOT Peak Gradient 7.7 mmHg AV Area Cont Eq pk 2.7 cm Mitral E Point Velocity 78.0 cm/s Mitral A Point Velocity 72.6 cm/s Mitral E to A Ratio 1.1 MV Deceleration Time 140.0 ms TV Peak Velocity 223.0 cm/s LV E' Lateral Velocity 12.1 cm/s Mitral E to LV E' Lateral Ratio 6.4 LV E' Septal Velocity 6.2 cm/s Mitral E to LV E' Septal Ratio 12.5
[2017-11-28 20:00] VITALS: BP 92/58
--- NOTE | 2017-11-28 20:42 | Event Note ---
Event Note Event Note: Antibiotic discussed with Dr. Chavez, she is OK for now with Vncomycin and Zosyn.
--- NOTE | 2017-11-28 21:59 | Cons- Endocrinology ---
General Information and HPI Consulting Request Date of Consult: 11/28/17 Requested By: ICU Reason for Consult: DM/ mild DKA Source of Information: old records Exam Limitations: unable to give history History of Present Illness: 47 y/o male hx of diabetes type 2 on metformin in the past, presented with unresponsiveness. In ER, he was found to have glucose level of over 700 along with acute renal insufficency and mild ketosis. Imaging studies revealed an abscess in his left thigh and multiple thick-walled bilateral cavitary lesions in his lung. He has been on insulin drip, NS with 20 chester of KCL at 125 ml/hour. His T was 101.2; he remains unresponsiveness. His recent FSG was 395. At this point, he is at insulin drip at 6 units per hour. Allergies/Medications Allergies: Coded Allergies: NO KNOWN ALLERGIES (08/07/15) Home Med List: No Known Home Medications Review of Systems Review of Systems Constitutional: Reports: see HPI (unable to provide information). 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 Home Services at Home: None Smoking Status: Never Smoked ETOH Use: denies use Illicit Drug Use: marijuana Living Will? no Exam & Diagnostic Data Last 24 Hrs of Vital Signs/I&O Vital Signs Date Time Temp Pulse Resp B/P B/P Pulse O2 O2 Flow FiO2 Mean Ox Delivery Rate 11/29 1999 101.2 128 34 92/58 11/29 1999 91 Nasal 4.0L Cannula 11/28 1600 99.6 123 41 110/60 95 Nasal 2.0L Cannula 11/28 1600 93 Nasal 2.0L Cannula 11/28 1425 95 Nasal 2.0L Cannula 11/28 1320 99.3 124 40 104/60 95 Nasal 2.0L Cannula 11/28 1257 98.3 123 20 116/55 98 Room Air 11/28 1219 121 20 116/62 97 Nasal 4.0L Cannula 11/28 1152 98.5 121 20 124/60 99 Nasal 4.0L Cannula 11/28 1135 118 20 123/59 99 Nasal 4.0L Cannula 11/28 1128 98 Nasal 4.0L Cannula 11/28 1121 123 20 125/61 100 Nasal 4.0L Cannula 11/28 1106 124 24 119/63 100 Nasal 4.0L Cannula 11/28 1041 126 30 124/59 98 Nasal 4.0L Cannula 11/28 1031 127 20 131/58 99 Nasal 4.0L Cannula 11/28 1017 98.4 122 40 100 Non 100% ReBreather 11/28 0956 40 86/48 Intake & Output 11/28 1600 11/28 0800 11/28 0000 Intake Total 4223 Output Total 50 Balance 4173 Intake, IV 4223 Intake, Oral 0 Number 1 Bowel Movements Output, Urine 50 Patient 198 lb Weight Weight Bed scale Measurement Method Physical Exam General Appearance: lethargic Respiratory: coarse breath sounds Cardiovascular: tachycardia Gastrointestinal: soft Extremities: normal inspection (lesion in left thigh) Labs/Rl Results: Laboratory Tests 11/28 165 Chemistry Sodium (137 - 145 mmol/L) 134 L Potassium (3.5 - 5.1 mmol/L) 3.8 Chloride (98 - 107 mmol/L) 100 Carbon Dioxide (22 - 30 mmol/L) 20 L Anion Gap (5 - 16) 15 BUN (9 - 20 mg/dL) 58 H Creatinine (0.7 - 1.2 mg/dL) 2.0 H Estimated GFR (>60 ml/min) 36 L Glucose (65 - 99 mg/dL) 472 H Lactic Acid (0.7 - 2.1 mmol/L) 4.3 H Cancelled 4.2 H Uric Acid (3.5 - 8.5 mg/dL) 8.7 H Calcium (8.4 - 10.2 mg/dL) 6.5 L Phosphorus (2.5 - 4.5 mg/dL) 5.2 H Magnesium (1.6 - 2.3 mg/dL) 2.1 Total Bilirubin (0.2 - 1.3 mg/dL) 1.0 AST (17 - 59 U/L) 102 H ALT (21 - 72 U/L) 38 Lactate Dehydrogenase (313 - 618 U/L) 2305 H Troponin I (<0.11 ng/ml) 0.07 Albumin (3.5 - 5.0 g/dL) 1.7 L Hematology CBC w Diff MAN DIFF ORDERED WBC (4.8 - 10.8 /CUMM) 53.4 *H RBC (4.70 - 6.10 /CUMM) 4.07 L Hgb (14.0 - 18.0 G/DL) 11.1 L Hct (42 - 52 %) 33.2 L MCV (80.0 - 94.0 FL) 81.4 MCH (27.0 - 31.0 PG) 27.4 MCHC (33.0 - 37.0 G/DL) 33.6 RDW (11.5 - 14.5 %) 15.0 H Plt Count (130 - 400 /CUMM) 152 MPV (7.4 - 10.4 FL) 8.6 Gran % (42.2 - 75.2 %) 93.6 H Lymphocytes % (20.5 - 51.1 %) 2.6 L Monocytes % (1.7 - 9.3 %) 3.7 Eosinophils % (0 - 5 %) 0 Basophils % (0.0 - 2.0 %) 0.1 Absolute Granulocytes (1.4 - 6.5 /CUMM) 50.0 H Segmented Neutrophils (42.2 - 75.2 %) 77 H Band Neutrophils (0.0 - 5.0 %) 15 H Absolute Lymphocytes (1.2 - 3.4 /CUMM) 1.4 Lymphocytes (20.5 - 51.1 %) 2 L Monocytes (1.7 - 9.3 %) 1 L Absolute Monocytes (0.10 - 0.60 /CUMM) 2.0 H Absolute Eosinophils (0.0 - 0.7 /CUMM) 0 Absolute Basophils (0.0 - 0.2 /CUMM) 0 Metamyelocytes (0.0 - 1.0 %) 1 Myelocytes (0 - 0 %) 4 H Platelet Estimate (ADEQUATE) VERIFIED BY SMEAR Normocytic RBCs VERIFIED Normochromic RBCs VERIFIED ESR Westergren (0 - 10 MM) 55 H Other Body Source Fld Total RBCs Counted (%) 100 Serology Hep Bs Antigen (NONREACTIVE) Pending Hep Bs Antibody (NONREACTIVE) Pending Hep B Core IgM Ab Conf (NONREACTIVE) Pending Hepatitis C Antibody (NONREACTIVE) Pending HIV 1&2 Ab Western Blot (NONREACTIVE) NONREACTIVE 11/28 11/28 11/28 1237 1237 1124 Chemistry Sodium (137 - 145 mmol/L) 135 L Potassium (3.5 - 5.1 mmol/L) 4.0 Chloride (98 - 107 mmol/L) 99 Carbon Dioxide (22 - 30 mmol/L) 16 L Anion Gap (5 - 16) 20 H BUN (9 - 20 mg/dL) 57 H Creatinine (0.7 - 1.2 mg/dL) 2.0 H Estimated GFR (>60 ml/min) 36 L BUN/Creatinine Ratio (7 - 25 %) 28.5 H Glucose (65 - 99 mg/dL) 557 *H Lactic Acid (0.7 - 2.1 mmol/L) 3.8 H Phosphorus (2.5 - 4.5 mg/dL) 6.3 H Magnesium (1.6 - 2.3 mg/dL) 2.2 C-Reactive Prot, Quant (<1.0 mg/dL) > 9.0 H Total PSA (0.00 - 4.00 ng/mL) 0.19 Immunology Rheum Factor Semi-Quant (<12 IU/Ml) 8.8 Toxicology Acetone Level (NEGATIVE) POSITIVE AT 1:16 DIL 11/28 11/28 1040 1020 Blood Gas pH (7.35 - 7.45 PH) 7.25 *L pCO2 (35 - 45 TORR) 30 L pO2 (80 - 100 TORR) 271 H HCO3 (21 - 28 MEQ/L) 13 L Bicarbonate Actual (22 - 26 MEQ/L) 14 L ABG O2 Sat (Measured) (>96.0 %) 99.0 Mixed VBG pH (7.31 - 7.41 PH) 7.19 L Mixed VBG pCO2 (41 - 51 TORR) 38 L Mixed VBG O2 Saturation (35 - 45 TORR) 48 H P-50 (Temp Corrected) N N Carboxyhemoglobin (1.5 - 5.0 %) 0.9 L 0.5 L O2 Concentration % 100% 100% Temperature (97.0 - 100.0 FARH) 98.4 98.4 O2 Delivery Method NRB NRB Coagulation PT (9.4 - 12.5 SEC) 40.7 H INR (0.90 - 1.17) 3.69 H APTT (25 - 37 SEC) 49 H Miscellaneous Phlebotomy Draw Site RAC RIGHT RADIAL 11/28 11/28 1012 1011 Chemistry Sodium (137 - 145 mmol/L) 133 L Potassium (3.5 - 5.1 mmol/L) 5.1 Chloride (98 - 107 mmol/L) 90 L Carbon Dioxide (22 - 30 mmol/L) 14 L Anion Gap (5 - 16) 29 H BUN (9 - 20 mg/dL) 56 H Creatinine (0.7 - 1.2 mg/dL) 2.3 H Estimated GFR (>60 ml/min) 30 L BUN/Creatinine Ratio (7 - 25 %) 24.3 Glucose (65 - 99 mg/dL) 702 *H Hemoglobin A1c (4.2 - 5.8 %) Pending Serum Osmolality (285 - 295 MOSM/KG) 339 H Lactic Acid (0.7 - 2.1 mmol/L) 5.6 H Calcium (8.4 - 10.2 mg/dL) 8.3 L Total Bilirubin (0.2 - 1.3 mg/dL) 1.4 H AST (17 - 59 U/L) 61 H ALT (21 - 72 U/L) 26 Alkaline Phosphatase (< 127 U/L) 297 H Troponin I (<0.11 ng/ml) 0.06 Total Protein (6.3 - 8.2 g/dL) 5.8 L Albumin (3.5 - 5.0 g/dL) 2.4 L Globulin (1.9 - 4.2 gm/dL) 3.4 Albumin/Globulin Ratio (1.1 - 2.2 %) 0.7 L Hematology CBC w Diff MAN DIFF ORDERED WBC (4.8 - 10.8 /CUMM) 71.8 *H RBC (4.70 - 6.10 /CUMM) 5.10 Hgb (14.0 - 18.0 G/DL) 13.8 L Hct (42 - 52 %) 42.0 MCV (80.0 - 94.0 FL) 82.5 MCH (27.0 - 31.0 PG) 27.0 MCHC (33.0 - 37.0 G/DL) 32.8 L RDW (11.5 - 14.5 %) 15.1 H Plt Count (130 - 400 /CUMM) 199 MPV (7.4 - 10.4 FL) 9.3 Gran % (42.2 - 75.2 %) 92.8 H Lymphocytes % (20.5 - 51.1 %) 3.6 L Monocytes % (1.7 - 9.3 %) 3.6 Eosinophils % (0 - 5 %) 0 Basophils % (0.0 - 2.0 %) 0 Absolute Granulocytes (1.4 - 6.5 /CUMM) 66.6 H Segmented Neutrophils (42.2 - 75.2 %) 77 H Band Neutrophils (0.0 - 5.0 %) 11 H Absolute Lymphocytes (1.2 - 3.4 /CUMM) 2.6 Lymphocytes (20.5 - 51.1 %) 5 L Monocytes (1.7 - 9.3 %) 1 L Absolute Monocytes (0.10 - 0.60 /CUMM) 2.6 H Absolute Eosinophils (0.0 - 0.7 /CUMM) 0 Absolute Basophils (0.0 - 0.2 /CUMM) 0 Metamyelocytes (0.0 - 1.0 %) 2 H Myelocytes (0 - 0 %) 4 H Platelet Estimate (ADEQUATE) ADEQUATE Normocytic RBCs VERIFIED Normochromic RBCs VERIFIED Toxicology Salicylates (0 - 20.0 mg/dL) < 1.0 Urine Opiates Screen (>2000 NG/ML) < 100 Methadone Screen (>300 NG/ML) < 40 Acetaminophen (10.0 - 30.0 ug/mL) < 10.0 L Barbiturate Screen (>200 NG/ML) < 60 Ur Phencyclidine Scrn (>25 NG/ML) < 6.00 Amphetamines Screen (>1000 NG/ML) < 100 U Benzodiazepines Scrn (>200 NG/ML) < 85 Urine Cocaine Screen (>300 NG/ML) < 50 Urine Cannabis Screen (>50 NG/ML) > 80.00 H Serum Alcohol (<10 MG/DL) < 10.0 Urines Urinalysis LIGHT H Urine Color (YEL,AMB,STR) BLDY H Urine Clarity (CLEAR) TURBD H Urine pH (5.0 - 8.0) 7.0 Ur Specific [place] (1.001 - 1.035) 1.020 Urine Protein (NEG,<30 MG/DL) >=300 H Urine Ketones (NEG) 15 H Urine Nitrite (NEG) POS H Urine Bilirubin (NEG) NEG@ICTO Urine Urobilinogen (0.1 - 1.0 EU/dl) 4.0 H Ur Leukocyte Esterase (NEG) LARGE H Ur Microscopic SEDIMENT EXAMINED Urine RBC (0 - 5 /HPF) >75 H Urine WBC (0 - 2 /HPF) > 75 H Urine Bacteria (NEG/NONE) MANY H Micro UA Comment MORE INFO: H Urine Hemoglobin (NEG) LARGE H Urine Glucose (N MG/DL) 250 H 11/28 11/28 1007 0956 Toxicology Salicylates Cancelled Acetaminophen Cancelled Serum Alcohol Cancelled Assessment/Plan Assessment/Plan 47 y/o male hx of diabetes type 2 on metformin in the past, presented with unresponsiveness. In ER, he was found to have glucose level of over 700 along with acute renal insufficency and mild ketosis. Imaging studies revealed an abscess in his left thigh and multiple thick-walled bilateral cavitary lesions in his lung. Dx: hyperglycemic hyperosmolar state/mild ketosis left thigh abscess ? septic pulmonary emboli acute renal insufficiency Management of diabetes: ---recommend continue the insulin drip ---monitor FSG every one hour; the goal of FSG is between 140 and 180 mg/dl ---adjust insulin drip rate according to the insulin drip protocol for non DKA patient ---monitor electrolytes , in and out and vital sign; then IVF and NS boluses will be determined accordingly. will follow please contact me if there are any questions. Consult Acknowledgment - Thank you for your consult request.
[2017-11-28 22:00] VITALS: BP 95/63
--- NOTE | 2017-11-28 23:04 | RADIOLOGY REPORT ---
EXAMINATION: XR PORTABLE CHEST CLINICAL INFORMATION: Endotracheal tube placement. ARDS. COMPARISON: 11/28/2017 TECHNIQUE: Portable frontal view of the chest was obtained. FINDINGS: An endotracheal tube is now in place, terminating approximately 5 cm above the jessica, at the level of the clavicles. Enteric tube extends into the stomach. Right internal jugular central venous catheter terminates over the mid SVC. Cardiac leads overlie the chest. Lung volumes are low. Streaky bibasilar opacities are present favoring subsegmental atelectasis. There is no dense consolidation. No pleural effusion or pneumothorax. The cardiomediastinal silhouette is unchanged and within normal limits. IMPRESSION: Endotracheal tube terminating approximately 5 cm above the jessica. Enteric tube extending into the stomach. Low lung volumes with bibasilar subsegmental atelectasis.
[2017-11-28 23:08] LABS: ABSOLUTE BASOPHIL COUNT 0.1 /CUMM (0.0-0.2); ABSOLUTE EOSINOPHIL COUNT 0 /CUMM (0.0-0.7); ABSOLUTE GRANULOCYTE CT 40.2 /CUMM (1.4-6.5); ABSOLUTE LYMPH COUNT 1.2 /CUMM (1.2-3.4); ABSOLUTE MONOCYTE COUNT 1.1 /CUMM (0.10-0.60); BASOPHIL % 0.1 % (0.0-2.0); EOSINOPHIL % 0 % (0-5); GRANULOCYTE % 94.7 % (42.2-75.2); HEMATOCRIT 32.1 % (42-52); MEAN CORPUSCULAR HGB 27.2 PG (27.0-31.0); MEAN CORPUSCULAR HGB CONC 33.2 G/DL (33.0-37.0); MEAN PLATELET VOLUME 8.7 FL (7.4-10.4); PLATELET COUNT 134 /CUMM (130-400); RBC DISTRIBUTION WIDTH 14.9 % (11.5-14.5); RED BLOOD CELL CT 3.91 /CUMM (4.70-6.10)
[2017-11-28 23:14] LABS: WHITE BLOOD CELL COUNT 42.4 /CUMM (4.8-10.8)
[2017-11-28 23:19] LABS: PT 17.5 SEC (9.4-12.5); PTT 40 SEC (25-37)
--- NOTE | 2017-11-28 23:48 | Event Note ---
Event Note Event Note: Situation: Called to review a patient who was having pronounced labored breathing. The patient initially was saturating at around 96% on 2 L but desaturated to 88% which despite being given 4 L was just saturating at around 91%. Blood pressure was borderline with systolic of around 96. Patient had received a total 4 L of bolus and maintenance at 125 however for the past 3-4 hours was producing urine around 25 and 35 mL/h. On examination: Patient was tachypneic with belly labored breathing. She was not responsive with GCS of 3. Through the breathing could feel secretions piling up in the airway. Had distant breath sounds and crackles could not be appreciated. TLC in situ without appreciation of raised JVD, this is a patient with a very wide short neck. Assessment and plan: This patient respiratory function is declining and given his unresponsiveness is at risk of aspiration and because of inability to protect his airway we decided to go ahead and intubate the patient. An OG tube was put in and produced about 250 mL of coffee-ground secretions. The patient mother was called and updated prior to intubation. Informed Edilberto Alexandre MD on the progress and agreed with decision to intubate. Recommended we avoid further fluids because of risk of ARDS and try to use pressors to sustain blood pressure while maintaining a CVP of 6. With called GI service to provide information about upper GI bleeding and started the patient on IV pantoprazole twice a day from initial once a day order. Patient will continue with insulin drip and will get ABG to further adjust respirator settings.
[2017-11-29] VITALS (8 sets, daily range): BP systolic 85–118; BP diastolic 56–64
[2017-11-29 02:37] LABS: ABSOLUTE BASOPHIL COUNT 0 /CUMM (0.0-0.2); ABSOLUTE EOSINOPHIL COUNT 0 /CUMM (0.0-0.7); ABSOLUTE GRANULOCYTE CT 41.5 /CUMM (1.4-6.5); ABSOLUTE LYMPH COUNT 1.9 /CUMM (1.2-3.4); ABSOLUTE MONOCYTE COUNT 1.6 /CUMM (0.10-0.60); BASOPHIL % 0 % (0.0-2.0); EOSINOPHIL % 0 % (0-5); GRANULOCYTE % 92.3 % (42.2-75.2); MEAN CORPUSCULAR HGB 26.9 PG (27.0-31.0); MEAN CORPUSCULAR HGB CONC 33.2 G/DL (33.0-37.0); MEAN CORPUSCULAR VOLUME 81.1 FL (80.0-94.0); MEAN PLATELET VOLUME 8.7 FL (7.4-10.4); PLATELET COUNT 126 /CUMM (130-400); RBC DISTRIBUTION WIDTH 14.5 % (11.5-14.5); RED BLOOD CELL CT 4.19 /CUMM (4.70-6.10)
[2017-11-29 02:45] LABS: PT 16.6 SEC (9.4-12.5); PTT 39 SEC (25-37)
[2017-11-29 02:46] LABS: WHITE BLOOD CELL COUNT 44.9 /CUMM (4.8-10.8)
[2017-11-29 05:37] LABS: ABSOLUTE BASOPHIL COUNT 0 /CUMM (0.0-0.2); ABSOLUTE EOSINOPHIL COUNT 0 /CUMM (0.0-0.7); ABSOLUTE LYMPH COUNT 1.8 /CUMM (1.2-3.4); ABSOLUTE MONOCYTE COUNT 1.6 /CUMM (0.10-0.60); BASOPHIL % 0 % (0.0-2.0); EOSINOPHIL % 0 % (0-5); GRANULOCYTE % 92.1 % (42.2-75.2); HEMATOCRIT 34.5 % (42-52); MEAN CORPUSCULAR HGB 26.7 PG (27.0-31.0); MEAN CORPUSCULAR HGB CONC 32.8 G/DL (33.0-37.0); MEAN CORPUSCULAR VOLUME 81.5 FL (80.0-94.0); MEAN PLATELET VOLUME 8.8 FL (7.4-10.4); PLATELET COUNT 119 /CUMM (130-400); RBC DISTRIBUTION WIDTH 14.6 % (11.5-14.5); RED BLOOD CELL CT 4.24 /CUMM (4.70-6.10)
[2017-11-29 05:50] LABS: WHITE BLOOD CELL COUNT 44.5 /CUMM (4.8-10.8)
--- NOTE | 2017-11-29 08:56 | PN- Resident CRCU ---
Subjective HPI/CRCU Issues: 1.Septic shock 2. Hyperosmolar hyperglycemia 3 Coffee-ground material in OG-tube. 4 Anemia 5. Acute respiratory failure 6. Sepsis 7. History of alcohol abuse, with possible evidence of underlying cirrhosis. 8. Infected Sebacious Cyst 9. Masslike appearance on the ischio-rectal rectal area on the right side 24 Hour Events: Overnight event of increased work of breathing and respiratory distress requiring intubation last night is noted. Patient is on Levophed for his blood pressure. He continues to have fevers with a reported MAXIMUM TEMPERATURE of 102.1, despite being on broad coverage antibiotic. When examined today patient is lethargic and and only minimally responsive to sternal rub, he was not on any sedatives. His Intubation settings are tidal volume of 500, PEEP of 5, respiratory rate of 20, FiO2 of 30%. Objective Vital Signs & I&O Last 8 Hrs of Vitals and I&O: Laboratory Tests 11/29/17 1055: Lactic Acid 2.7 H 11/29/17 0805: Lactic Acid 2.8 H 11/29/17 0500: Lactic Acid 3.3 H, OSCAR Titer Pending, Anti-Nuclear Antibody Pending 11/29/17 0500: Anion Gap 11, Estimated GFR 30 L, Glucose 190 H, Calcium 7.4 L, Phosphorus 4.0, Magnesium 2.2, Total Bilirubin 1.7 H, AST 117 H, ALT 44, Albumin 1.7 L, CBC w Diff NO MAN DIFF REQ, RBC 4.24 L, MCV 81.5, MCH 26.7 L, MCHC 32.8 L, RDW 14.6 H, MPV 8.8, Gran % 92.1 H, Lymphocytes % 4.2 L, Monocytes % 3.7, Eosinophils % 0, Basophils % 0, Absolute Granulocytes 41.0 H, Absolute Lymphocytes 1.8, Absolute Monocytes 1.6 H, Absolute Eosinophils 0, Absolute Basophils 0, ANCA Pending, Ref Lab Test Result Pending 11/29/17 0205: Lactic Acid 3.5 H 11/29/17 0205: Anion Gap 12, Estimated GFR 30 L, Glucose 202 H, Calcium 7.3 L, Phosphorus 4.2, Magnesium 2.1, Total Bilirubin 1.5 H, AST 113 H, ALT 42, Troponin I 0.09, Albumin 1.8 L, PT 16.6 H, INR 1.52 H, APTT 39 H, CBC w Diff MAN DIFF ORDERED , RBC 4.19 L, MCV 81.1, MCH 26.9 L, MCHC 33.2, RDW 14.5, MPV 8.7, Gran % 92.3 H, Lymphocytes % 4.1 L, Monocytes % 3.6, Eosinophils % 0, Basophils % 0, Absolute Granulocytes 41.5 H, Segmented Neutrophils 83 H, Band Neutrophils 6 H, Absolute Lymphocytes 1.9, Lymphocytes 7 L, Monocytes 3, Absolute Monocytes 1.6 H, Eosinophils 1, Absolute Eosinophils 0, Absolute Basophils 0, Platelet Estimate DECREASED, Hypochromic-Microcytic 1+, Anisocytosis 1+ 11/28/170: pH 7.38, pCO2 34 L, pO2 181 H, HCO3 19 L, ABG O2 Sat (Measured) 99.0, Carboxyhemoglobin 1.0 L, O2 Concentration % 50, Respiration Rate 20, O2 Delivery Method VENT, Vent Mode AC, Expiratory Pressure 5, Tidal Volume 550, Pressure Support 0, Phlebotomy Draw Site RIGHT RADIAL 11/28/17 2300: Sodium Cancelled, Potassium Cancelled, Chloride Cancelled, Carbon Dioxide Cancelled, Anion Gap Cancelled, BUN Cancelled, Creatinine Cancelled, Glucose Cancelled, Calcium Cancelled, Phosphorus Cancelled, Magnesium Cancelled, Total Bilirubin Cancelled, AST Cancelled, ALT Cancelled, Albumin Cancelled, APTT Cancelled, CBC w Diff Cancelled, WBC Cancelled, RBC Cancelled, Hgb Cancelled, Hct Cancelled, MCV Cancelled, MCH Cancelled, MCHC Cancelled, RDW Cancelled, Plt Count Cancelled, MPV Cancelled 11/28/17 2245: Troponin I 0.09 11/28/172244: Lactic Acid 3.4 H 11/28/172244: Anion Gap 11, Estimated GFR 34 L, Glucose 255 H, Calcium 7.2 L, Phosphorus 4.7 H, Magnesium 2.1, Total Bilirubin 1.1, AST 102 H, ALT 40, Creatine Kinase 4891 H, Albumin 1.7 L, PT 17.5 H, INR 1.60 H, APTT 40 H, CBC w Diff MAN DIFF ORDERED, RBC 3.91 L, MCV 82.0, MCH 27.2, MCHC 33.2, RDW 14.9 H, MPV 8.7, Gran % 94.7 H, Lymphocytes % 2.7 L, Monocytes % 2.5, Eosinophils % 0, Basophils % 0.1, Absolute Granulocytes 40.2 H, Segmented Neutrophils 70, Band Neutrophils 14 H, Absolute Lymphocytes 1.2, Lymphocytes 4 L, Monocytes 4, Absolute Monocytes 1.1 H, Absolute Eosinophils 0, Absolute Basophils 0.1, Metamyelocytes 6 H, Myelocytes 2 H, Platelet Estimate VERIFIED BY SMEAR, Polychromasia , Basophilic Stippling SLIGHT, Fld Total RBCs Counted 100 11/28/171999: Lactic Acid 4.3 H 11/28/171910: Lactic Acid Cancelled 11/28/17 165: Anion Gap 15, Estimated GFR 36 L, Glucose 472 H, Lactic Acid 4.2 H, Uric Acid 8.7 H, Calcium 6.5 L, Phosphorus 5.2 H, Magnesium 2.1, Total Bilirubin 1.0, AST 102 H, ALT 38, Lactate Dehydrogenase 2305 H, Troponin I 0.07, Albumin 1.7 L, CBC w Diff MAN DIFF ORDERED, RBC 4.07 L, MCV 81.4, MCH 27.4, MCHC 33.6, RDW 15.0 H, MPV 8.6, Gran % 93.6 H, Lymphocytes % 2.6 L, Monocytes % 3.7, Eosinophils % 0, Basophils % 0.1, Absolute Granulocytes 50.0 H, Segmented Neutrophils 77 H, Band Neutrophils 15 H, Absolute Lymphocytes 1.4, Lymphocytes 2 L, Monocytes 1 L, Absolute Monocytes 2.0 H, Absolute Eosinophils 0, Absolute Basophils 0, Metamyelocytes 1, Myelocytes 4 H, Platelet Estimate VERIFIED BY SMEAR, Normocytic RBCs VERIFIED, Normochromic RBCs VERIFIED, ESR Westergren 55 H, Fld Total RBCs Counted 100, Hep Bs Antigen NONREACTIVE, Hep Bs Antibody NONREACTIVE, Hep B Core IgM Ab Conf NONREACTIVE, Hepatitis C Antibody NONREACTIVE, HIV 1&2 Ab Western Blot NONREACTIVE Vital Signs Date Time Temp Pulse Resp B/P B/P Pulse O2 O2 Flow FiO2 Mean Ox Delivery Rate 11/29 1225 100.5 11/29 1200 99 Ventilator 30% 11/29 1156 30 11/29 0910 136 94/60 11/29 0843 30 11/29 0800 98.3 135 25 108/62 93 Ventilator 30% 11/29 0800 99 Ventilator 30% 11/29 0600 98.9 132 23 99/62 11/29 0523 30 11/29 0400 98.9 134 22 96/58 11/29 0400 99 Ventilator 30% 11/29 0257 30 11/29 0200 99.0 132 23 102/63 11/29 0026 40 11/29 0022 50 11/29 0000 99.0 132 21 104/56 11/29 0000 99.0 132 21 104/56 99 Ventilator 50% 11/29 0000 99 Ventilator 50% 11/28 2317 50 11/28 2230 124 77/49 11/28 2215 99.5 11/28 2200 99.5 128 22 95/63 11/28 2115 102.1 11/29 1999 101.2 128 34 92/58 11/28 2000 91 Nasal 4.0L Cannula 11/28 1600 99.6 123 41 110/60 95 Nasal 2.0L Cannula 11/28 1600 93 Nasal 2.0L Cannula 11/28 1425 95 Nasal 2.0L Cannula Intake & Output 11/29 1600 11/29 0800 11/29 0000 Intake Total 1014 2591 Output Total 450 450 Balance 564 2141 Intake, Blood 362 Product Intake, IV 1014 2229 Output, 0 150 Gastric Drainage Output, Urine 450 300 Exam General Appearance: intubated, lethargic Other Physical Findings: Skin RIGHT UPPER EXTREMITY ABSCESS, PURPLE DISCOLORATION ON THE CO[place]YX REGION, WITH OPEN SKIN BARRIER Skin Temp/Moisture Exam: Warm/Dry Sepsis Skin Exam (color): Pale, [place]ay lesions on the palms HEENT Atraumatic, PERRLA, DRY MUCOUS MEMBRANE Neck Supple, No JVD, ET tube intact Lymphatic Axillary nl, Cervical nl Cardiovascular Regular Rate, Normal S1, Normal S2, MURMUR Lungs DECREASE AIR ENTRY BILATERALLY MORE ON THE RIGHT SIDE Abdomen Normal Bowel Sounds, Soft, TENDERNESS ON THE RIGHT LOWER QUADRANT Neurological PATIENT IS LETHARGIC,HE HAS DECREASED POWER IN BILATERAL UPPER AND LOWER EXTREMITIES Extremities No Clubbing, No Cyanosis, DIMINISHED PULSE IN BILATERAL LOWER EXTREMITY, RIGHT LOWER EXTREMITY EDEMA AND SWELLING COMPARED TO THE LEFT Vascular DIMINISHED PULSE IN BILATERAL LOWER EXTREMITY Current Medications: Current Medications Sig/[place] Start time Last Medication Dose Route Stop Time Status Admin Acetaminophen 1,000 MG Q6P PRN 11/29 1230 CAN N/A 1 UNIT IV Acetaminophen 1,000 MG Q6P PRN 11/28 2114 AC 11/29 N/A 1 UNIT IV 1225 Acetaminophen 650 MG Q6P PRN 11/28 1215 DC PO Fentanyl Citrate 25 MCG Q2 HRS NEEDED PRN 11/29 1230 11/29 IV 1537 Insulin Human Regular 100 UNIT Q24H 11/28 1215 11/29 Sodium Chloride 100 ML IV 0125 Lorazepam 0 Q1P PRN 11/28 1215 AC IV Norepinephrine 4 MG Q10H 11/29 0915 11/29 Sodium Chloride 250 ML IV 0910 Norepinephrine 4 MG Q24H 11/28 2300 [place] 11/28 Sodium Chloride 250 ML IV 2230 Norepinephrine 4 MG .STK-MED ONE 11/28 221 DC IV 11/28 221 Pantoprazole Sodium 40 MG BID 11/29 0900 11/29 IV 0909 Pantoprazole Sodium 40 MG ONCE ONE 11/28 2245 DC 11/28 IV 11/28 224 2241 Pantoprazole Sodium 40 MG DAILY 11/28 1501 [place] 11/28 IV 1625 Phenylephrine HCl 40 MG Q24H 11/29 1230 11/29 Dextrose/Water 250 ML IV 1243 Piperacillin Sod/ 3.375 GM Q6H 11/28 1445 11/29 Tazobactam Sod IV 1537 Sodium Chloride 100 ML Potassium Chloride 20 MEQ Q8H 11/28 1200 11/29 Sodium Chloride 1,000 ML IV 1243 Sodium Chloride 1,000 ML BOLUS ONE 11/28 2014 DC 11/28 IV 11/28 Vancomycin HCl 1,000 MG DAILY@1100 11/29 1100 11/29 Sodium Chloride 250 ML IV 1053 Impression/Plan Impression/Problem List Impression: 47-year-old gentleman with a past medical history of diabetes, depression, alcoholism, BIBA evaluation of significant lethargy and is found to be septic with Kana can elevated white blood count, and temperature. Also found to be in severe hyperosmolar hyperglycemic state. Impression Respiratory: Acute hypoxic respiratory failure with worsening work of breathing last night requiring intubation. Continue with current setting of VT 550, PEEP of 5, and RR20. Infection: Sepsis with multiorgan failure, gram-positive bacteremia. A CT finding of masslike sensation on the right pelvic/ thigh area. Currently medically optimized broad spectrum antibiotic with Zosyn and vancomycin (day2), a white count is still persistent and he continues to have fevers. Will contact IR for possible assessment of abscess at the right pelvic an ischio- rectal area and if present will need drainage. Will also contact orthopedic. Cardiac: Tachycardia, sinus rhythm. Most likely secondary to sepsis and pain. NO Arrhythmias noted on telemetry monitors. Still needing pressors, will continue tih Levophed. Hematological: Persistent elevated white count, however bandemia has resolved. This is more likely secondary to infection. Other differentials such as vasculitis is being considered (ANCA and OSCAR pending). New onset of thrombocytopenia, possibly secondary to sepsis. Even though the platelet count is almost half of the admitting day count , ALEA is less likely given the timeframe. Continue to carefully trend platelets. Metabolic: Hyperosmolar state secondary to elevated blood sugars. We'll continue with hydration and insulin drip for now. Alimentary: Keep nothing by mouth, NG tube in place. No longer producing any coffee-ground drainage. Neuro: Awoken by tactile stimuli (hard sternal rub). Problem List: 1. Abscess of left thigh 2. Leukocytosis 3. JAMAL (acute kidney injury) 4. Sepsis 5. Hyperglycemia Pain Ratin Tomorrow's Labs & Rationales: icu bundle cbc Plan DVT/Prophylaxis: mechanical
--- NOTE | 2017-11-29 09:31 | ULTRASOUND REPORT ---
EXAMINATION: US TRIPLEX OF LOWER EXTREMITIES, BILATERAL CLINICAL INFORMATION: Lower extremity swelling COMPARISON: None TECHNIQUE: Color-flow triplex imaging with spectral analysis and compression Doppler were performed on the lower extremities. FINDINGS: Respiratory variation, normal compression and augmented flow are noted throughout the lower extremities. The visualized common femoral vein, superficial femoral vein, profunda femoral vein, popliteal vein and midcalf peroneal and posterior tibial venous segments show no evidence of deep venous thrombosis. There is no Rose's cyst. IMPRESSION: No evidence of deep venous thrombosis involving the bilateral lower extremities.
--- NOTE | 2017-11-29 10:13 | Cons- Urology ---
General Information and HPI Consulting Request Date of Consult: 11/29/17 Requested By: Anaya Walsh MD Reason for Consult: gross hematuria and mild fullness of his right ureter and renal pelvis Source of Information: old records Exam Limitations: unable to give history, not alert/orientated History of Present Illness: This is a 37 yo male with a history of diabetes and hypertension with previous alcohol abuse who was found by his mother shaking in his chair. Over the past few weeks he's been complaining of worsening back pain and difficulty walking secondary to his back pain which he attributed to sciatica. He has been taking ibuprofen for the pain. He had elevated blood sugar in the 500's. He did not complain of any urinary issues and has no hx of kidiney stones. He has been sick for few months with severe depression. However in the past week he has been having significant back pain and he has essentially become bedbound. Since then he has had overall deterioration of his performance status. In the ER he was lethargic and slowly improved after fluid resuscitation but was found to be septic, febrile with markedly worrisome CT findings of his C/A/P and was admitted to the ICU. He was intubated last night. In the emergency room he did have a Pérez placed which was initially drained bloody urine and he had an elevated INR. More significantly, in the ICU he was found to have multiple small skin lesions suggestive of septic emboli-like picture, a large abscess in the left posterior thighs suggestive of infected sebaceous cyst draining pus and a decubiti. Allergies/Medications Allergies: Coded Allergies: NO KNOWN ALLERGIES (08/07/15) Home Med List: No Known Home Medications Current Medications: Current Medications Sig/[place] Start time Last Medication Dose Route Stop Time Status Admin Acetaminophen 1,000 MG Q6P PRN 11/28 2114 AC 11/28 N/A 1 UNIT IV 2114 Acetaminophen 650 MG Q6P PRN 11/28 1215 DC PO Acetaminophen 650 MG Q6P PRN 11/28 1200 DC PO Ceftazidime 0 .STK-MED ONE 11/28 1117 DC .ROUTE Ceftazidime 1,000 MG ONCE ONE 11/28 1100 DC 11/28 IV 11/28 1101 1120 Heparin Sodium 5,000 UNIT Q8 11/29 0600 CAN (Porcine) SC Insulin Human Regular 100 UNIT Q24H 11/28 1215 AC 11/29 Sodium Chloride 100 ML IV 0125 Insulin Human Regular 100 UNIT ONCE ONE 11/28 1130 DC 11/28 Sodium Chloride 100 ML IV 11/28 1131 1150 Insulin Human Regular 10 UNITS ONCE ONE 11/28 1015 DC 11/28 IV 11/28 1016 1019 Lorazepam 0 Q1P PRN 11/28 1215 AC IV Naloxone HCl 2 MG ONCE ONE 11/28 1015 DC 11/28 IV 11/28 1016 1015 Naloxone HCl 0 .STK-MED ONE 11/28 1015 DC .ROUTE Non-Formulary 0 SEE ADMIN CRITERIA 11/28 1445 CAN Medication ANY Norepinephrine 4 MG Q10H 11/29 0915 AC 11/29 Sodium Chloride 250 ML IV 0910 Norepinephrine 4 MG Q24H 11/28 2300 DC 11/28 Sodium Chloride 250 ML IV 2230 Norepinephrine 4 MG .STK-MED ONE 11/28 2213 DC IV 11/28 2214 Pantoprazole Sodium 40 MG BID 11/29 0900 AC 11/29 IV 0909 Pantoprazole Sodium 40 MG ONCE ONE 11/28 2245 DC 11/28 IV 11/28 2246 2241 Pantoprazole Sodium 40 MG DAILY 11/28 1501 DC 11/28 IV 1625 Phytonadione 10 MG ONCE ONE 11/28 1415 DC 11/28 SC 11/28 1416 1405 Piperacillin Sod/ 3.375 GM Q6H 11/28 1445 AC 11/29 Tazobactam Sod IV 0909 Sodium Chloride 100 ML Potassium Chloride 20 MEQ Q8H 11/28 1200 AC 11/29 Sodium Chloride 1,000 ML IV 0757 Sodium Chloride 1,000 ML BOLUS ONE 11/28 2014 DC 11/28 IV 11/28 2214 2010 Sodium Chloride 1,000 ML BOLUS ONE 11/28 1015 DC 11/28 IV 11/28 1114 1015 Sodium Chloride 1,000 ML BOLUS ONE 11/28 1015 DC 11/28 IV 11/28 1114 1048 Sodium Chloride 1,000 ML BOLUS ONE 11/28 1015 DC 11/28 IV 11/28 1114 1035 Vancomycin HCl 1,000 MG DAILY@1100 11/29 1100 AC Sodium Chloride 250 ML IV Vancomycin HCl 0 .STK-MED ONE 11/28 1117 DC .ROUTE Vancomycin HCl 1,000 MG ONCE ONE 11/28 1100 DC 11/28 Sodium Chloride 250 ML IV 11/28 1159 1120 Past History Medical History Blood Transfusion Hx: No Neurological: NONE EENT: NONE Cardiovascular: hypertension Respiratory: NONE Gastrointestinal: hiatal hernia Hepatic: NONE Renal: NONE Musculoskeletal: NONE Psychiatric: depression Endocrine: diabetes Blood Disorders: NONE Cancer(s): 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 Home Services at Home: None Smoking Status: Never Smoked ETOH Use: denies use Illicit Drug Use: marijuana Living Will? no Review of Systems Review of Systems Constitutional: Reports: see HPI. EENTM: Reports: see HPI. Cardiovascular: Reports: see HPI. Respiratory: Reports: see HPI. GI: Reports: see HPI. Genitourinary: Reports: no symptoms. Musculoskeletal: Reports: see HPI. Skin: Reports: see HPI. Neurological/Psychological: Reports: cognitive dysfunction. Hematologic/Endocrine: Reports: see HPI. Immunologic/Allergic: Reports: see HPI. Exam & Diagnostic Data Vital Signs and I&O Vital Signs Date Time Temp Pulse Resp B/P B/P Pulse O2 O2 Flow FiO2 Mean Ox Delivery Rate 11/29 0910 136 94/60 11/29 0843 30 11/29 0800 98.3 135 25 108/62 93 Ventilator 30% 11/29 0800 99 Ventilator 30% 11/29 0600 98.9 132 23 99/62 11/29 0523 30 11/29 0400 98.9 134 22 96/58 11/29 0400 99 Ventilator 30% 11/29 0257 30 11/29 0200 99.0 132 23 102/63 11/29 0026 40 11/29 0022 50 11/29 0000 99.0 132 21 104/56 11/29 0000 99.0 132 21 104/56 99 Ventilator 50% 11/29 0000 99 Ventilator 50% 11/28 2317 50 11/28 2230 124 77/49 11/28 2215 99.5 11/28 2200 99.5 128 22 95/63 11/28 2115 102.1 11/29 1999 101.2 128 34 92/58 11/29 1999 91 Nasal 4.0L Cannula 11/28 1600 99.6 123 41 110/60 95 Nasal 2.0L Cannula 11/28 1600 93 Nasal 2.0L Cannula 11/28 1425 95 Nasal 2.0L Cannula 11/28 1320 99.3 124 40 104/60 95 Nasal 2.0L Cannula 11/28 1257 98.3 123 20 116/55 98 Room Air 11/28 1219 121 20 116/62 97 Nasal 4.0L Cannula 11/28 1152 98.5 121 20 124/60 99 Nasal 4.0L Cannula 11/28 1135 118 20 123/59 99 Nasal 4.0L Cannula 11/28 1128 98 Nasal 4.0L Cannula 11/28 1121 123 20 125/61 100 Nasal 4.0L Cannula 11/28 1106 124 24 119/63 100 Nasal 4.0L Cannula 11/28 1041 126 30 124/59 98 Nasal 4.0L Cannula 11/28 1031 127 20 131/58 99 Nasal 4.0L Cannula 11/28 1017 98.4 122 40 100 Non 100% ReBreather Intake & Output 11/29 0800 11/29 0000 11/28 0800 11/28 0000 Intake Total 1014 2591 4223 Output Total 450 450 50 Balance 564 2141 4173 Intake, Blood 362 Product Intake, IV 1014 2229 4223 Intake, Oral 0 Number 1 Bowel Movements Output, 0 150 Gastric Drainage Output, Urine 450 300 50 Patient 89.868 kg Weight Weight Bed scale Measurement Method Physical Exam General Appearance: sedated, intubated, obese Head: atraumatic Rectal: deferred Neurologic/Psych: no motor/sensory deficits (intubated) Skin: intact, normal color Last 24 Hours of Labs: Laboratory Tests 11/29 11/29 11/29 0805 0500 0500 Chemistry Sodium (137 - 145 mmol/L) 140 Potassium (3.5 - 5.1 mmol/L) 3.9 Chloride (98 - 107 mmol/L) 107 Carbon Dioxide (22 - 30 mmol/L) 22 Anion Gap (5 - 16) 11 BUN (9 - 20 mg/dL) 64 H Creatinine (0.7 - 1.2 mg/dL) 2.3 H Estimated GFR (>60 ml/min) 30 L Glucose (65 - 99 mg/dL) 190 H Lactic Acid (0.7 - 2.1 mmol/L) 2.8 H 3.3 H Calcium (8.4 - 10.2 mg/dL) 7.4 L Phosphorus (2.5 - 4.5 mg/dL) 4.0 Magnesium (1.6 - 2.3 mg/dL) 2.2 Total Bilirubin (0.2 - 1.3 mg/dL) 1.7 H AST (17 - 59 U/L) 117 H ALT (21 - 72 U/L) 44 Albumin (3.5 - 5.0 g/dL) 1.7 L Hematology CBC w Diff NO MAN DIFF REQ WBC (4.8 - 10.8 /CUMM) 44.5 *H RBC (4.70 - 6.10 /CUMM) 4.24 L Hgb (14.0 - 18.0 G/DL) 11.3 L Hct (42 - 52 %) 34.5 L MCV (80.0 - 94.0 FL) 81.5 MCH (27.0 - 31.0 PG) 26.7 L MCHC (33.0 - 37.0 G/DL) 32.8 L RDW (11.5 - 14.5 %) 14.6 H Plt Count (130 - 400 /CUMM) 119 L MPV (7.4 - 10.4 FL) 8.8 Gran % (42.2 - 75.2 %) 92.1 H Lymphocytes % (20.5 - 51.1 %) 4.2 L Monocytes % (1.7 - 9.3 %) 3.7 Eosinophils % (0 - 5 %) 0 Basophils % (0.0 - 2.0 %) 0 Absolute Granulocytes (1.4 - 6.5 /CUMM) 41.0 H Absolute Lymphocytes (1.2 - 3.4 /CUMM) 1.8 Absolute Monocytes (0.10 - 0.60 /CUMM) 1.6 H Absolute Eosinophils (0.0 - 0.7 /CUMM) 0 Absolute Basophils (0.0 - 0.2 /CUMM) 0 Immunology OSCAR Titer Pending Anti-Nuclear Antibody Pending ANCA Pending Miscellaneous Ref Lab Test Result Pending 11/29 11/29 0205 0205 Chemistry Sodium (137 - 145 mmol/L) 139 Potassium (3.5 - 5.1 mmol/L) 4.0 Chloride (98 - 107 mmol/L) 105 Carbon Dioxide (22 - 30 mmol/L) 23 Anion Gap (5 - 16) 12 BUN (9 - 20 mg/dL) 63 H Creatinine (0.7 - 1.2 mg/dL) 2.3 H Estimated GFR (>60 ml/min) 30 L Glucose (65 - 99 mg/dL) 202 H Lactic Acid (0.7 - 2.1 mmol/L) 3.5 H Calcium (8.4 - 10.2 mg/dL) 7.3 L Phosphorus (2.5 - 4.5 mg/dL) 4.2 Magnesium (1.6 - 2.3 mg/dL) 2.1 Total Bilirubin (0.2 - 1.3 mg/dL) 1.5 H AST (17 - 59 U/L) 113 H ALT (21 - 72 U/L) 42 Troponin I (<0.11 ng/ml) 0.09 Albumin (3.5 - 5.0 g/dL) 1.8 L Coagulation PT (9.4 - 12.5 SEC) 16.6 H INR (0.90 - 1.17) 1.52 H APTT (25 - 37 SEC) 39 H Hematology CBC w Diff MAN DIFF ORDERED WBC (4.8 - 10.8 /CUMM) 44.9 *H RBC (4.70 - 6.10 /CUMM) 4.19 L Hgb (14.0 - 18.0 G/DL) 11.3 L Hct (42 - 52 %) 34.0 L MCV (80.0 - 94.0 FL) 81.1 MCH (27.0 - 31.0 PG) 26.9 L MCHC (33.0 - 37.0 G/DL) 33.2 RDW (11.5 - 14.5 %) 14.5 Plt Count (130 - 400 /CUMM) 126 L MPV (7.4 - 10.4 FL) 8.7 Gran % (42.2 - 75.2 %) 92.3 H Lymphocytes % (20.5 - 51.1 %) 4.1 L Monocytes % (1.7 - 9.3 %) 3.6 Eosinophils % (0 - 5 %) 0 Basophils % (0.0 - 2.0 %) 0 Absolute Granulocytes (1.4 - 6.5 /CUMM) 41.5 H Segmented Neutrophils (42.2 - 75.2 %) 83 H Band Neutrophils (0.0 - 5.0 %) 6 H Absolute Lymphocytes (1.2 - 3.4 /CUMM) 1.9 Lymphocytes (20.5 - 51.1 %) 7 L Monocytes (1.7 - 9.3 %) 3 Absolute Monocytes (0.10 - 0.60 /CUMM) 1.6 H Eosinophils (0 - 5.0 %) 1 Absolute Eosinophils (0.0 - 0.7 /CUMM) 0 Absolute Basophils (0.0 - 0.2 /CUMM) 0 Platelet Estimate (ADEQUATE) DECREASED Hypochromic-Microcytic 1+ Anisocytosis 1+ 11/280 2300 2245 2245 Blood Gas pH (7.35 - 7.45 PH) 7.38 pCO2 (35 - 45 TORR) 34 L pO2 (80 - 100 TORR) 181 H HCO3 (21 - 28 MEQ/L) 19 L ABG O2 Sat (Measured) (>96.0 %) 99.0 Carboxyhemoglobin (1.5 - 5.0 %) 1.0 L O2 Concentration % 50 Respiration Rate (BPM) 20 O2 Delivery Method VENT Vent Mode AC Expiratory Pressure (CMH2O/P) 5 Tidal Volume (CC) 550 Pressure Support (CMH2O/P) 0 Chemistry Sodium Cancelled Potassium Cancelled Chloride Cancelled Carbon Dioxide Cancelled Anion Gap Cancelled BUN Cancelled Creatinine Cancelled Glucose Cancelled Lactic Acid (0.7 - 2.1 mmol/L) 3.4 H Calcium Cancelled Phosphorus Cancelled Magnesium Cancelled Total Bilirubin Cancelled AST Cancelled ALT Cancelled Troponin I (<0.11 ng/ml) 0.09 Albumin Cancelled Coagulation APTT Cancelled Hematology CBC w Diff Cancelled WBC Cancelled RBC Cancelled Hgb Cancelled Hct Cancelled MCV Cancelled MCH Cancelled MCHC Cancelled RDW Cancelled Plt Count Cancelled MPV Cancelled Miscellaneous Phlebotomy Draw Site RIGHT RADIAL 11/28 Chemistry Sodium (137 - 145 mmol/L) 139 Potassium (3.5 - 5.1 mmol/L) 3.9 Chloride (98 - 107 mmol/L) 105 Carbon Dioxide (22 - 30 mmol/L) 23 Anion Gap (5 - 16) 11 BUN (9 - 20 mg/dL) 61 H Creatinine (0.7 - 1.2 mg/dL) 2.1 H Estimated GFR (>60 ml/min) 34 L Glucose (65 - 99 mg/dL) 255 H Lactic Acid (0.7 - 2.1 mmol/L) 4.3 H Cancelled Calcium (8.4 - 10.2 mg/dL) 7.2 L Phosphorus (2.5 - 4.5 mg/dL) 4.7 H Magnesium (1.6 - 2.3 mg/dL) 2.1 Total Bilirubin (0.2 - 1.3 mg/dL) 1.1 AST (17 - 59 U/L) 102 H ALT (21 - 72 U/L) 40 Creatine Kinase (55 - 170 U/L) 4891 H Albumin (3.5 - 5.0 g/dL) 1.7 L Coagulation PT (9.4 - 12.5 SEC) 17.5 H INR (0.90 - 1.17) 1.60 H APTT (25 - 37 SEC) 40 H Hematology CBC w Diff MAN DIFF ORDERED WBC (4.8 - 10.8 /CUMM) 42.4 *H RBC (4.70 - 6.10 /CUMM) 3.91 L Hgb (14.0 - 18.0 G/DL) 10.6 L Hct (42 - 52 %) 32.1 L MCV (80.0 - 94.0 FL) 82.0 MCH (27.0 - 31.0 PG) 27.2 MCHC (33.0 - 37.0 G/DL) 33.2 RDW (11.5 - 14.5 %) 14.9 H Plt Count (130 - 400 /CUMM) 134 MPV (7.4 - 10.4 FL) 8.7 Gran % (42.2 - 75.2 %) 94.7 H Lymphocytes % (20.5 - 51.1 %) 2.7 L Monocytes % (1.7 - 9.3 %) 2.5 Eosinophils % (0 - 5 %) 0 Basophils % (0.0 - 2.0 %) 0.1 Absolute Granulocytes (1.4 - 6.5 /CUMM) 40.2 H Segmented Neutrophils (42.2 - 75.2 %) 70 Band Neutrophils (0.0 - 5.0 %) 14 H Absolute Lymphocytes (1.2 - 3.4 /CUMM) 1.2 Lymphocytes (20.5 - 51.1 %) 4 L Monocytes (1.7 - 9.3 %) 4 Absolute Monocytes (0.10 - 0.60 /CUMM) 1.1 H Absolute Eosinophils (0.0 - 0.7 /CUMM) 0 Absolute Basophils (0.0 - 0.2 /CUMM) 0.1 Metamyelocytes (0.0 - 1.0 %) 6 H Myelocytes (0 - 0 %) 2 H Platelet Estimate (ADEQUATE) VERIFIED BY SMEAR Polychromasia Basophilic Stippling SLIGHT Other Body Source Fld Total RBCs Counted (%) 100 11/28 11/28 11/28 1656 1237 1237 Chemistry Sodium (137 - 145 mmol/L) 134 L 135 L Potassium (3.5 - 5.1 mmol/L) 3.8 4.0 Chloride (98 - 107 mmol/L) 100 99 Carbon Dioxide (22 - 30 mmol/L) 20 L 16 L Anion Gap (5 - 16) 15 20 H BUN (9 - 20 mg/dL) 58 H 57 H Creatinine (0.7 - 1.2 mg/dL) 2.0 H 2.0 H Estimated GFR (>60 ml/min) 36 L 36 L BUN/Creatinine Ratio (7 - 25 %) 28.5 H Glucose (65 - 99 mg/dL) 472 H 557 *H Lactic Acid (0.7 - 2.1 mmol/L) 4.2 H 3.8 H Uric Acid (3.5 - 8.5 mg/dL) 8.7 H Calcium (8.4 - 10.2 mg/dL) 6.5 L Phosphorus (2.5 - 4.5 mg/dL) 5.2 H 6.3 H Magnesium (1.6 - 2.3 mg/dL) 2.1 2.2 Total Bilirubin (0.2 - 1.3 mg/dL) 1.0 AST (17 - 59 U/L) 102 H ALT (21 - 72 U/L) 38 Lactate Dehydrogenase (313 - 618 U/L) 2305 H Troponin I (<0.11 ng/ml) 0.07 C-Reactive Prot, Quant (<1.0 mg/dL) > 9.0 H Albumin (3.5 - 5.0 g/dL) 1.7 L Total PSA (0.00 - 4.00 ng/mL) 0.19 Hematology CBC w Diff MAN DIFF ORDERED WBC (4.8 - 10.8 /CUMM) 53.4 *H RBC (4.70 - 6.10 /CUMM) 4.07 L Hgb (14.0 - 18.0 G/DL) 11.1 L Hct (42 - 52 %) 33.2 L MCV (80.0 - 94.0 FL) 81.4 MCH (27.0 - 31.0 PG) 27.4 MCHC (33.0 - 37.0 G/DL) 33.6 RDW (11.5 - 14.5 %) 15.0 H Plt Count (130 - 400 /CUMM) 152 MPV (7.4 - 10.4 FL) 8.6 Gran % (42.2 - 75.2 %) 93.6 H Lymphocytes % (20.5 - 51.1 %) 2.6 L Monocytes % (1.7 - 9.3 %) 3.7 Eosinophils % (0 - 5 %) 0 Basophils % (0.0 - 2.0 %) 0.1 Absolute Granulocytes (1.4 - 6.5 /CUMM) 50.0 H Segmented Neutrophils (42.2 - 75.2 %) 77 H Band Neutrophils (0.0 - 5.0 %) 15 H Absolute Lymphocytes (1.2 - 3.4 /CUMM) 1.4 Lymphocytes (20.5 - 51.1 %) 2 L Monocytes (1.7 - 9.3 %) 1 L Absolute Monocytes (0.10 - 0.60 /CUMM) 2.0 H Absolute Eosinophils (0.0 - 0.7 /CUMM) 0 Absolute Basophils (0.0 - 0.2 /CUMM) 0 Metamyelocytes (0.0 - 1.0 %) 1 Myelocytes (0 - 0 %) 4 H Platelet Estimate (ADEQUATE) VERIFIED BY SMEAR Normocytic RBCs VERIFIED Normochromic RBCs VERIFIED ESR Westergren (0 - 10 MM) 55 H Immunology Rheum Factor Semi-Quant (<12 IU/Ml) 8.8 Other Body Source Fld Total RBCs Counted (%) 100 Serology Hep Bs Antigen (NONREACTIVE) Pending Hep Bs Antibody (NONREACTIVE) Pending Hep B Core IgM Ab Conf (NONREACTIVE) Pending Hepatitis C Antibody (NONREACTIVE) Pending HIV 1&2 Ab Western Blot (NONREACTIVE) NONREACTIVE 11/28 11/28 1124 1040 Blood Gas Bicarbonate Actual (22 - 26 MEQ/L) 14 L Mixed VBG pH (7.31 - 7.41 PH) 7.19 L Mixed VBG pCO2 (41 - 51 TORR) 38 L Mixed VBG O2 Saturation (35 - 45 TORR) 48 H P-50 (Temp Corrected) N Carboxyhemoglobin (1.5 - 5.0 %) 0.9 L O2 Concentration % 100% Temperature (97.0 - 100.0 FARH) 98.4 O2 Delivery Method NRB Coagulation PT (9.4 - 12.5 SEC) 40.7 H INR (0.90 - 1.17) 3.69 H APTT (25 - 37 SEC) 49 H Miscellaneous Phlebotomy Draw Site RAC Toxicology Acetone Level (NEGATIVE) POSITIVE AT 1:16 DIL 11/28 11/28 1020 1012 Blood Gas pH (7.35 - 7.45 PH) 7.25 *L pCO2 (35 - 45 TORR) 30 L pO2 (80 - 100 TORR) 271 H HCO3 (21 - 28 MEQ/L) 13 L ABG O2 Sat (Measured) (>96.0 %) 99.0 P-50 (Temp Corrected) N Carboxyhemoglobin (1.5 - 5.0 %) 0.5 L O2 Concentration % 100% Temperature (97.0 - 100.0 FARH) 98.4 O2 Delivery Method NRB Miscellaneous Phlebotomy Draw Site RIGHT RADIAL Toxicology Urine Opiates Screen (>2000 NG/ML) < 100 Methadone Screen (>300 NG/ML) < 40 Barbiturate Screen (>200 NG/ML) < 60 Ur Phencyclidine Scrn (>25 NG/ML) < 6.00 Amphetamines Screen (>1000 NG/ML) < 100 U Benzodiazepines Scrn (>200 NG/ML) < 85 Urine Cocaine Screen (>300 NG/ML) < 50 Urine Cannabis Screen (>50 NG/ML) > 80.00 H Urines Urinalysis LIGHT H Urine Color (YEL,AMB,STR) BLDY H Urine Clarity (CLEAR) TURBD H Urine pH (5.0 - 8.0) 7.0 Ur Specific Vowinckel (1.001 - 1.035) 1.020 Urine Protein (NEG,<30 MG/DL) >=300 H Urine Ketones (NEG) 15 H Urine Nitrite (NEG) POS H Urine Bilirubin (NEG) NEG@ICTO Urine Urobilinogen (0.1 - 1.0 EU/dl) 4.0 H Ur Leukocyte Esterase (NEG) LARGE H Ur Microscopic SEDIMENT EXAMINED Urine RBC (0 - 5 /HPF) >75 H Urine WBC (0 - 2 /HPF) > 75 H Urine Bacteria (NEG/NONE) MANY H Micro UA Comment MORE INFO: H Urine Hemoglobin (NEG) LARGE H Urine Glucose (N MG/DL) 250 H 11/28 1011 Chemistry Sodium (137 - 145 mmol/L) 133 L Potassium (3.5 - 5.1 mmol/L) 5.1 Chloride (98 - 107 mmol/L) 90 L Carbon Dioxide (22 - 30 mmol/L) 14 L Anion Gap (5 - 16) 29 H BUN (9 - 20 mg/dL) 56 H Creatinine (0.7 - 1.2 mg/dL) 2.3 H Estimated GFR (>60 ml/min) 30 L BUN/Creatinine Ratio (7 - 25 %) 24.3 Glucose (65 - 99 mg/dL) 702 *H Hemoglobin A1c (4.2 - 5.8 %) Pending Serum Osmolality (285 - 295 MOSM/KG) 339 H Lactic Acid (0.7 - 2.1 mmol/L) 5.6 H Calcium (8.4 - 10.2 mg/dL) 8.3 L Total Bilirubin (0.2 - 1.3 mg/dL) 1.4 H AST (17 - 59 U/L) 61 H ALT (21 - 72 U/L) 26 Alkaline Phosphatase (< 127 U/L) 297 H Troponin I (<0.11 ng/ml) 0.06 Total Protein (6.3 - 8.2 g/dL) 5.8 L Albumin (3.5 - 5.0 g/dL) 2.4 L Globulin (1.9 - 4.2 gm/dL) 3.4 Albumin/Globulin Ratio (1.1 - 2.2 %) 0.7 L Hematology CBC w Diff MAN DIFF ORDERED WBC (4.8 - 10.8 /CUMM) 71.8 *H RBC (4.70 - 6.10 /CUMM) 5.10 Hgb (14.0 - 18.0 G/DL) 13.8 L Hct (42 - 52 %) 42.0 MCV (80.0 - 94.0 FL) 82.5 MCH (27.0 - 31.0 PG) 27.0 MCHC (33.0 - 37.0 G/DL) 32.8 L RDW (11.5 - 14.5 %) 15.1 H Plt Count (130 - 400 /CUMM) 199 MPV (7.4 - 10.4 FL) 9.3 Gran % (42.2 - 75.2 %) 92.8 H Lymphocytes % (20.5 - 51.1 %) 3.6 L Monocytes % (1.7 - 9.3 %) 3.6 Eosinophils % (0 - 5 %) 0 Basophils % (0.0 - 2.0 %) 0 Absolute Granulocytes (1.4 - 6.5 /CUMM) 66.6 H Segmented Neutrophils (42.2 - 75.2 %) 77 H Band Neutrophils (0.0 - 5.0 %) 11 H Absolute Lymphocytes (1.2 - 3.4 /CUMM) 2.6 Lymphocytes (20.5 - 51.1 %) 5 L Monocytes (1.7 - 9.3 %) 1 L Absolute Monocytes (0.10 - 0.60 /CUMM) 2.6 H Absolute Eosinophils (0.0 - 0.7 /CUMM) 0 Absolute Basophils (0.0 - 0.2 /CUMM) 0 Metamyelocytes (0.0 - 1.0 %) 2 H Myelocytes (0 - 0 %) 4 H Platelet Estimate (ADEQUATE) ADEQUATE Normocytic RBCs VERIFIED Normochromic RBCs VERIFIED Toxicology Salicylates (0 - 20.0 mg/dL) < 1.0 Acetaminophen (10.0 - 30.0 ug/mL) < 10.0 L Serum Alcohol (<10 MG/DL) < 10.0 Imaging Results: IMPRESSION: 1. Multiple bilateral pulmonary cavitary and few solid lesions are present, as described above. Differential includes metastatic disease versus infection, inflammation including septic pulmonary emboli. Clinical, lab correlation as appropriate is recommended. 2. Limited evaluation of the abdomen and pelvis shows mild fullness of the right ureter and nonspecific stranding around the collapsed urinary bladder and mildly enlarged prostate, and lobulated soft tissue mass within the right ischiorectal fossa and soft tissue fullness involving the right gluteal region and cortical break of the right ischial tuberosity and right inferior pubic ramus. The findings within the pelvis may represent posttraumatic changes, however, differential includes neoplasm as well. Assessment/Plan Assessment/Plan This is a 47 yo male with stable but ill clinical condition of unclear etiology. He has multiple CT findings worrisome for neoplasm vs infection who incidentally had gross hematuria after pérez placement with an elevated INR. He is draining clear urine this morning and it quickly became pink tinged over night after initial GH. Continue pérez as needed for I/Os status. No need for intervention for mild right renal fullness or resolved GH. Reconsult as needed. Consult Acknowledgment - Thank you for your consult request.
--- NOTE | 2017-11-29 10:44 | PN- Diabetes ---
Assessment/Plan Diabetes Assessment: 47 y/o male hx of diabetes type 2 on metformin in the past, presented with unresponsiveness. In ER, he was found to have glucose level of over 700 along with acute renal insufficency and mild ketosis. Imaging studies revealed an abscess in his left thigh, a mass in the right ischiorectal fossa and multiple thick-walled bilateral cavitary lesions in his lung. Blood culture was positive for Grams positive cocci in clusters. He was intubated last night. Now he is on pressor. Insulin drip has been between 2.5 units per hour and 3 units per hour. His FSGs were between 180 and 190. Plan: continue the insulin drip for now with target glucose level between 140 and 180 mg/dl. will follow. Subjective Subjective: Patient is intubated. Objective Last 24 Hrs of Vital Signs/I&O Vital Signs Date Time Temp Pulse Resp B/P B/P Pulse O2 O2 Flow FiO2 Mean Ox Delivery Rate 11/29 0910 136 94/60 11/29 0843 30 11/29 0800 98.3 135 25 108/62 93 Ventilator 30% 11/29 0800 99 Ventilator 30% 11/29 0600 98.9 132 23 99/62 11/29 0523 30 11/29 0400 98.9 134 22 96/58 11/29 0400 99 Ventilator 30% 11/29 0257 30 11/29 0200 99.0 132 23 102/63 11/29 0026 40 11/29 0022 50 11/29 0000 99.0 132 21 104/56 11/29 0000 99.0 132 21 104/56 99 Ventilator 50% 11/29 0000 99 Ventilator 50% 11/28 2317 50 11/28 2230 124 77/49 11/28 2215 99.5 11/28 2200 99.5 128 22 95/63 11/28 2115 102.1 11/29 1999 101.2 128 34 92/58 11/29 1999 91 Nasal 4.0L Cannula 11/28 1600 99.6 123 41 110/60 95 Nasal 2.0L Cannula 11/28 1600 93 Nasal 2.0L Cannula 11/28 1425 95 Nasal 2.0L Cannula 11/28 1320 99.3 124 40 104/60 95 Nasal 2.0L Cannula 11/28 1257 98.3 123 20 116/55 98 Room Air 11/28 1219 121 20 116/62 97 Nasal 4.0L Cannula 11/28 1152 98.5 121 20 124/60 99 Nasal 4.0L Cannula 11/28 1135 118 20 123/59 99 Nasal 4.0L Cannula 11/28 1128 98 Nasal 4.0L Cannula 11/28 1121 123 20 125/61 100 Nasal 4.0L Cannula 11/28 1106 124 24 119/63 100 Nasal 4.0L Cannula Intake & Output 11/29 1600 11/29 0800 11/29 0000 Intake Total 1014 2591 Output Total 450 450 Balance 564 2141 Intake, Blood 362 Product Intake, IV 1014 2229 Output, 0 150 Gastric Drainage Output, Urine 450 300 Findings Pertinent Lab/Rl Results: Laboratory Tests 11/29 11/29 11/29 0805 0500 0500 Chemistry Sodium (137 - 145 mmol/L) 140 Potassium (3.5 - 5.1 mmol/L) 3.9 Chloride (98 - 107 mmol/L) 107 Carbon Dioxide (22 - 30 mmol/L) 22 Anion Gap (5 - 16) 11 BUN (9 - 20 mg/dL) 64 H Creatinine (0.7 - 1.2 mg/dL) 2.3 H Estimated GFR (>60 ml/min) 30 L Glucose (65 - 99 mg/dL) 190 H Lactic Acid (0.7 - 2.1 mmol/L) 2.8 H 3.3 H Calcium (8.4 - 10.2 mg/dL) 7.4 L Phosphorus (2.5 - 4.5 mg/dL) 4.0 Magnesium (1.6 - 2.3 mg/dL) 2.2 Total Bilirubin (0.2 - 1.3 mg/dL) 1.7 H AST (17 - 59 U/L) 117 H ALT (21 - 72 U/L) 44 Albumin (3.5 - 5.0 g/dL) 1.7 L Hematology CBC w Diff NO MAN DIFF REQ WBC (4.8 - 10.8 /CUMM) 44.5 *H RBC (4.70 - 6.10 /CUMM) 4.24 L Hgb (14.0 - 18.0 G/DL) 11.3 L Hct (42 - 52 %) 34.5 L MCV (80.0 - 94.0 FL) 81.5 MCH (27.0 - 31.0 PG) 26.7 L MCHC (33.0 - 37.0 G/DL) 32.8 L RDW (11.5 - 14.5 %) 14.6 H Plt Count (130 - 400 /CUMM) 119 L MPV (7.4 - 10.4 FL) 8.8 Gran % (42.2 - 75.2 %) 92.1 H Lymphocytes % (20.5 - 51.1 %) 4.2 L Monocytes % (1.7 - 9.3 %) 3.7 Eosinophils % (0 - 5 %) 0 Basophils % (0.0 - 2.0 %) 0 Absolute Granulocytes (1.4 - 6.5 /CUMM) 41.0 H Absolute Lymphocytes (1.2 - 3.4 /CUMM) 1.8 Absolute Monocytes (0.10 - 0.60 /CUMM) 1.6 H Absolute Eosinophils (0.0 - 0.7 /CUMM) 0 Absolute Basophils (0.0 - 0.2 /CUMM) 0 Immunology OSCAR Titer Pending Anti-Nuclear Antibody Pending ANCA Pending Miscellaneous Ref Lab Test Result Pending 11/29 11/29 0205 0205 Chemistry Sodium (137 - 145 mmol/L) 139 Potassium (3.5 - 5.1 mmol/L) 4.0 Chloride (98 - 107 mmol/L) 105 Carbon Dioxide (22 - 30 mmol/L) 23 Anion Gap (5 - 16) 12 BUN (9 - 20 mg/dL) 63 H Creatinine (0.7 - 1.2 mg/dL) 2.3 H Estimated GFR (>60 ml/min) 30 L Glucose (65 - 99 mg/dL) 202 H Lactic Acid (0.7 - 2.1 mmol/L) 3.5 H Calcium (8.4 - 10.2 mg/dL) 7.3 L Phosphorus (2.5 - 4.5 mg/dL) 4.2 Magnesium (1.6 - 2.3 mg/dL) 2.1 Total Bilirubin (0.2 - 1.3 mg/dL) 1.5 H AST (17 - 59 U/L) 113 H ALT (21 - 72 U/L) 42 Troponin I (<0.11 ng/ml) 0.09 Albumin (3.5 - 5.0 g/dL) 1.8 L Coagulation PT (9.4 - 12.5 SEC) 16.6 H INR (0.90 - 1.17) 1.52 H APTT (25 - 37 SEC) 39 H Hematology CBC w Diff MAN DIFF ORDERED WBC (4.8 - 10.8 /CUMM) 44.9 *H RBC (4.70 - 6.10 /CUMM) 4.19 L Hgb (14.0 - 18.0 G/DL) 11.3 L Hct (42 - 52 %) 34.0 L MCV (80.0 - 94.0 FL) 81.1 MCH (27.0 - 31.0 PG) 26.9 L MCHC (33.0 - 37.0 G/DL) 33.2 RDW (11.5 - 14.5 %) 14.5 Plt Count (130 - 400 /CUMM) 126 L MPV (7.4 - 10.4 FL) 8.7 Gran % (42.2 - 75.2 %) 92.3 H Lymphocytes % (20.5 - 51.1 %) 4.1 L Monocytes % (1.7 - 9.3 %) 3.6 Eosinophils % (0 - 5 %) 0 Basophils % (0.0 - 2.0 %) 0 Absolute Granulocytes (1.4 - 6.5 /CUMM) 41.5 H Segmented Neutrophils (42.2 - 75.2 %) 83 H Band Neutrophils (0.0 - 5.0 %) 6 H Absolute Lymphocytes (1.2 - 3.4 /CUMM) 1.9 Lymphocytes (20.5 - 51.1 %) 7 L Monocytes (1.7 - 9.3 %) 3 Absolute Monocytes (0.10 - 0.60 /CUMM) 1.6 H Eosinophils (0 - 5.0 %) 1 Absolute Eosinophils (0.0 - 0.7 /CUMM) 0 Absolute Basophils (0.0 - 0.2 /CUMM) 0 Platelet Estimate (ADEQUATE) DECREASED Hypochromic-Microcytic 1+ Anisocytosis 1+ 11/28 11/28 11/28 11/28 2320 2300 2245 2245 Blood Gas pH (7.35 - 7.45 PH) 7.38 pCO2 (35 - 45 TORR) 34 L pO2 (80 - 100 TORR) 181 H HCO3 (21 - 28 MEQ/L) 19 L ABG O2 Sat (Measured) (>96.0 %) 99.0 Carboxyhemoglobin (1.5 - 5.0 %) 1.0 L O2 Concentration % 50 Respiration Rate (BPM) 20 O2 Delivery Method VENT Vent Mode AC Expiratory Pressure (CMH2O/P) 5 Tidal Volume (CC) 550 Pressure Support (CMH2O/P) 0 Chemistry Sodium Cancelled Potassium Cancelled Chloride Cancelled Carbon Dioxide Cancelled Anion Gap Cancelled BUN Cancelled Creatinine Cancelled Glucose Cancelled Lactic Acid (0.7 - 2.1 mmol/L) 3.4 H Calcium Cancelled Phosphorus Cancelled Magnesium Cancelled Total Bilirubin Cancelled AST Cancelled ALT Cancelled Troponin I (<0.11 ng/ml) 0.09 Albumin Cancelled Coagulation APTT Cancelled Hematology CBC w Diff Cancelled WBC Cancelled RBC Cancelled Hgb Cancelled Hct Cancelled MCV Cancelled MCH Cancelled MCHC Cancelled RDW Cancelled Plt Count Cancelled MPV Cancelled Miscellaneous Phlebotomy Draw Site RIGHT RADIAL 11/28 Chemistry Sodium (137 - 145 mmol/L) 139 Potassium (3.5 - 5.1 mmol/L) 3.9 Chloride (98 - 107 mmol/L) 105 Carbon Dioxide (22 - 30 mmol/L) 23 Anion Gap (5 - 16) 11 BUN (9 - 20 mg/dL) 61 H Creatinine (0.7 - 1.2 mg/dL) 2.1 H Estimated GFR (>60 ml/min) 34 L Glucose (65 - 99 mg/dL) 255 H Lactic Acid (0.7 - 2.1 mmol/L) 4.3 H Cancelled Calcium (8.4 - 10.2 mg/dL) 7.2 L Phosphorus (2.5 - 4.5 mg/dL) 4.7 H Magnesium (1.6 - 2.3 mg/dL) 2.1 Total Bilirubin (0.2 - 1.3 mg/dL) 1.1 AST (17 - 59 U/L) 102 H ALT (21 - 72 U/L) 40 Creatine Kinase (55 - 170 U/L) 4891 H Albumin (3.5 - 5.0 g/dL) 1.7 L Coagulation PT (9.4 - 12.5 SEC) 17.5 H INR (0.90 - 1.17) 1.60 H APTT (25 - 37 SEC) 40 H Hematology CBC w Diff MAN DIFF ORDERED WBC (4.8 - 10.8 /CUMM) 42.4 *H RBC (4.70 - 6.10 /CUMM) 3.91 L Hgb (14.0 - 18.0 G/DL) 10.6 L Hct (42 - 52 %) 32.1 L MCV (80.0 - 94.0 FL) 82.0 MCH (27.0 - 31.0 PG) 27.2 MCHC (33.0 - 37.0 G/DL) 33.2 RDW (11.5 - 14.5 %) 14.9 H Plt Count (130 - 400 /CUMM) 134 MPV (7.4 - 10.4 FL) 8.7 Gran % (42.2 - 75.2 %) 94.7 H Lymphocytes % (20.5 - 51.1 %) 2.7 L Monocytes % (1.7 - 9.3 %) 2.5 Eosinophils % (0 - 5 %) 0 Basophils % (0.0 - 2.0 %) 0.1 Absolute Granulocytes (1.4 - 6.5 /CUMM) 40.2 H Segmented Neutrophils (42.2 - 75.2 %) 70 Band Neutrophils (0.0 - 5.0 %) 14 H Absolute Lymphocytes (1.2 - 3.4 /CUMM) 1.2 Lymphocytes (20.5 - 51.1 %) 4 L Monocytes (1.7 - 9.3 %) 4 Absolute Monocytes (0.10 - 0.60 /CUMM) 1.1 H Absolute Eosinophils (0.0 - 0.7 /CUMM) 0 Absolute Basophils (0.0 - 0.2 /CUMM) 0.1 Metamyelocytes (0.0 - 1.0 %) 6 H Myelocytes (0 - 0 %) 2 H Platelet Estimate (ADEQUATE) VERIFIED BY SMEAR Polychromasia Basophilic Stippling SLIGHT Other Body Source Fld Total RBCs Counted (%) 100 11/28 11/28 11/28 1656 1237 1237 Chemistry Sodium (137 - 145 mmol/L) 134 L 135 L Potassium (3.5 - 5.1 mmol/L) 3.8 4.0 Chloride (98 - 107 mmol/L) 100 99 Carbon Dioxide (22 - 30 mmol/L) 20 L 16 L Anion Gap (5 - 16) 15 20 H BUN (9 - 20 mg/dL) 58 H 57 H Creatinine (0.7 - 1.2 mg/dL) 2.0 H 2.0 H Estimated GFR (>60 ml/min) 36 L 36 L BUN/Creatinine Ratio (7 - 25 %) 28.5 H Glucose (65 - 99 mg/dL) 472 H 557 *H Lactic Acid (0.7 - 2.1 mmol/L) 4.2 H 3.8 H Uric Acid (3.5 - 8.5 mg/dL) 8.7 H Calcium (8.4 - 10.2 mg/dL) 6.5 L Phosphorus (2.5 - 4.5 mg/dL) 5.2 H 6.3 H Magnesium (1.6 - 2.3 mg/dL) 2.1 2.2 Total Bilirubin (0.2 - 1.3 mg/dL) 1.0 AST (17 - 59 U/L) 102 H ALT (21 - 72 U/L) 38 Lactate Dehydrogenase (313 - 618 U/L) 2305 H Troponin I (<0.11 ng/ml) 0.07 C-Reactive Prot, Quant (<1.0 mg/dL) > 9.0 H Albumin (3.5 - 5.0 g/dL) 1.7 L Total PSA (0.00 - 4.00 ng/mL) 0.19 Hematology CBC w Diff MAN DIFF ORDERED WBC (4.8 - 10.8 /CUMM) 53.4 *H RBC (4.70 - 6.10 /CUMM) 4.07 L Hgb (14.0 - 18.0 G/DL) 11.1 L Hct (42 - 52 %) 33.2 L MCV (80.0 - 94.0 FL) 81.4 MCH (27.0 - 31.0 PG) 27.4 MCHC (33.0 - 37.0 G/DL) 33.6 RDW (11.5 - 14.5 %) 15.0 H Plt Count (130 - 400 /CUMM) 152 MPV (7.4 - 10.4 FL) 8.6 Gran % (42.2 - 75.2 %) 93.6 H Lymphocytes % (20.5 - 51.1 %) 2.6 L Monocytes % (1.7 - 9.3 %) 3.7 Eosinophils % (0 - 5 %) 0 Basophils % (0.0 - 2.0 %) 0.1 Absolute Granulocytes (1.4 - 6.5 /CUMM) 50.0 H Segmented Neutrophils (42.2 - 75.2 %) 77 H Band Neutrophils (0.0 - 5.0 %) 15 H Absolute Lymphocytes (1.2 - 3.4 /CUMM) 1.4 Lymphocytes (20.5 - 51.1 %) 2 L Monocytes (1.7 - 9.3 %) 1 L Absolute Monocytes (0.10 - 0.60 /CUMM) 2.0 H Absolute Eosinophils (0.0 - 0.7 /CUMM) 0 Absolute Basophils (0.0 - 0.2 /CUMM) 0 Metamyelocytes (0.0 - 1.0 %) 1 Myelocytes (0 - 0 %) 4 H Platelet Estimate (ADEQUATE) VERIFIED BY SMEAR Normocytic RBCs VERIFIED Normochromic RBCs VERIFIED ESR Westergren (0 - 10 MM) 55 H Immunology Rheum Factor Semi-Quant (<12 IU/Ml) 8.8 Other Body Source Fld Total RBCs Counted (%) 100 Serology Hep Bs Antigen (NONREACTIVE) NONREACTIVE Hep Bs Antibody (NONREACTIVE) NONREACTIVE Hep B Core IgM Ab Conf (NONREACTIVE) NONREACTIVE Hepatitis C Antibody (NONREACTIVE) NONREACTIVE HIV 1&2 Ab Western Blot (NONREACTIVE) NONREACTIVE 11/28 1124 Toxicology Acetone Level (NEGATIVE) POSITIVE AT 1:16 DIL
--- NOTE | 2017-11-29 12:17 | Cons- Gastroenterology ---
General Information and HPI Consulting Request Date of Consult: 11/29/17 Requested By: Anaya Walsh MD Reason for Consult: 1. Coffee ground material in G-tube 2. History of alcohol abuse 3. Anemia Source of Information: electronic medical record Exam Limitations: unable to give history, intubated History of Present Illness: History is obtained from the chart as patient is intubated and sedated and unable to provide history. Patient is a 47-year-old male with a past medical history significant for alcohol abuse and type 2 diabetes mellitus. He was brought to the [place] ED by his family when he was found sitting in his computer chair unresponsive. He had been gradually deteriorating over the several weeks prior to admission with increasing back pain and inability to walk. Per his family's report he had been taking ibuprofen for what was felt to be sciatica. Per his family's report he has not been drinking recently. There is a question of remote substance abuse. On admission patient was found to have multiple subcutaneous lesion suggestive of septic emboli. He also was found to have a decubitus ulcer as well as an infected left posterior thigh sebaceous cyst that was draining pus.. A CT scan was obtained on admission the results of which are as follows. CT A/P IMPRESSION: 1. Multiple bilateral pulmonary cavitary and few solid lesions are present, as described above. Differential includes metastatic disease versus infection, inflammation including septic pulmonary emboli. Clinical, lab correlation as appropriate is recommended. 2. Limited evaluation of the abdomen and pelvis shows mild fullness of the right ureter and nonspecific stranding around the collapsed urinary bladder and mildly enlarged prostate, and lobulated soft tissue mass within the right ischiorectal fossa and soft tissue fullness involving the right gluteal region and cortical break of the right ischial tuberosity and right inferior pubic ramus. The findings within the pelvis may represent posttraumatic changes, however, differential includes neoplasm as well. A cardiac echo was done the results of which are as follows: CONCLUSIONS 1. Hyperdynamic left ventricle with EF of 70%. 2. Trace mitral regurgitation. 3. No valvular vegetations noted. 4. The atria of the heart appear to be externally compressed. 5. Consider a MAAME is high suspicion of endocarditis. On admission he had a PT/INR of 40.7/3.64, a BUN/Cr of 56/2.3, an albumin of 2.4 , a CBC with 71.8 WBC, H/H of 13.8/42 and 199,000 platelets. Today his WBC are 44.5, H/H is 11.3/34.5, with 119,000 platelets. Today he has PT/INR of 16.6/ 1.52, a BUN/Cr of 64/2.3, an alk phos of 297, and a T. Bili of 1.7, an AST/ALT of 117/44, and an albumin of 1.7. In August of 2015 he had a CBC that showed WBC of 7.8, H/H of 15.6, and platelets of 117,000. Seroogies for Hepatitis A, B , and C as well as HIV were nonreactive. We are consulted for coffee ground material found in his OG tube. Allergies/Medications Allergies: Coded Allergies: NO KNOWN ALLERGIES (08/07/15) Home Med List: No Known Home Medications Current Medications: Current Medications Sig/[place] Start time Last Medication Dose Route Stop Time Status Admin Acetaminophen 1,000 MG Q6P PRN 11/28 2115 AC 11/28 N/A 1 UNIT IV 211 Acetaminophen 650 MG Q6P PRN 11/28 1215 DC PO Acetaminophen 650 MG Q6P PRN 11/28 1200 DC PO Heparin Sodium 5,000 UNIT Q8 11/29 0600 CAN (Porcine) SC Insulin Human Regular 100 UNIT Q24H 11/28 1215 11/29 Sodium Chloride 100 ML IV 0125 Lorazepam 0 Q1P PRN 11/28 1215 AC IV Non-Formulary 0 SEE ADMIN CRITERIA 11/28 1445 CAN Medication ANY Norepinephrine 4 MG Q10H 11/29 0915 11/29 Sodium Chloride 250 ML IV 0910 Norepinephrine 4 MG Q24H 11/28 2300 NJ 11/28 Sodium Chloride 250 ML IV 2230 Norepinephrine 4 MG .STK-MED ONE 11/28 2213 DC IV 11/28 221 Pantoprazole Sodium 40 MG BID 11/29 0900 11/29 IV 0909 Pantoprazole Sodium 40 MG ONCE ONE 11/28 2245 NJ 11/28 IV 11/28 2245 224 Pantoprazole Sodium 40 MG DAILY 11/28 1501 NJ 11/28 IV 1625 Phytonadione 10 MG ONCE ONE 11/28 1415 NJ 11/28 SC 11/28 141 1405 Piperacillin Sod/ 3.375 GM Q6H 11/28 1445 AC 11/29 Tazobactam Sod IV 0909 Sodium Chloride 100 ML Potassium Chloride 20 MEQ Q8H 11/28 1200 AC 11/29 Sodium Chloride 1,000 ML IV 0757 Sodium Chloride 1,000 ML BOLUS ONE 11/28 2014 DC 11/28 IV 11/28 Vancomycin HCl 1,000 MG DAILY@1100 11/29 1100 11/29 Sodium Chloride 250 ML IV 1053 Past History Travel History Traveled to [place] past 21 day No Medical History Blood Transfusion Hx: No Neurological: NONE EENT: NONE Cardiovascular: hypertension Respiratory: NONE Gastrointestinal: hiatal hernia Hepatic: NONE Renal: NONE Musculoskeletal: NONE Psychiatric: depression Endocrine: diabetes Blood Disorders: NONE Cancer(s): NONE APPLICATION SUPPORT INTERN/Reproductive: NONE Surgical History Surgical History: FAILED UMBILICAL HERNIA REPAIR Family History Relations & Conditions If Any: BROTHER FH: alcoholism Pancreatitis FATHER FH: alcoholism Pancreatitis MOTHER FH: diabetes mellitus FH: hypertension Psychosocial History Where Do You Live? Home Services at Home: None Smoking Status: Never Smoked ETOH Use: denies use Illicit Drug Use: marijuana Living Will? no Review of Systems Review of Systems: Unable to obtain a review of systems as patient is intubated. Exam & Diagnostic Data Vital Signs and I&O Vital Signs Date Time Temp Pulse Resp B/P B/P Pulse O2 O2 Flow FiO2 Mean Ox Delivery Rate 11/29 1156 30 11/29 0910 136 94/60 11/29 0843 30 11/29 0800 98.3 135 25 108/62 93 Ventilator 30% 11/29 0800 99 Ventilator 30% 11/29 0600 98.9 132 23 99/62 11/29 0523 30 11/29 0400 98.9 134 22 96/58 11/29 0400 99 Ventilator 30% 11/29 0257 30 11/29 0200 99.0 132 23 102/63 11/29 0026 40 11/29 0022 50 11/29 0000 99.0 132 21 104/56 11/29 0000 99.0 132 21 104 99 Ventilator 50% 11/29 0000 99 Ventilator 50% 11/28 2317 50 11/28 2230 124 77/49 11/28 2215 99.5 11/28 2200 99.5 128 22 95/63 11/28 2115 102.1 11/29 1999 101.2 128 34 92/58 11/28 Nasal 4.0L Cannula 11/28 1600 99.6 123 41 110/60 95 Nasal 2.0L Cannula 11/28 1600 93 Nasal 2.0L Cannula 11/28 1425 95 Nasal 2.0L Cannula 11/28 1320 99.3 124 40 104/60 95 Nasal 2.0L Cannula 11/28 1257 98.3 123 20 116/55 98 Room Air 11/28 1219 121 20 116/62 97 Nasal 4.0L Cannula Intake & Output 11/29 0400 11/27 040 Intake Total 1014 2591 4223 Output Total 450 450 50 Balance 564 2141 4173 Intake, Blood 362 Product Intake, IV 1014 2229 4223 Intake, Oral 0 Number 1 Bowel Movements Output, 0 150 Gastric Drainage Output, Urine 450 300 50 Patient 198 lb Weight Weight Bed scale Measurement Method Physical Exam General Appearance: sedated, intubated Head: atraumatic, normal appearance Eyes: Bilateral: normal appearance. Neck: normal inspection Respiratory: normal breath sounds, chest non-tender, no respiratory distress, lungs clear Cardiovascular: regular rate/rhythm, tachycardic, normal S1 and S2 without rub, murmur or gallop Gastrointestinal: normal bowel sounds, soft, non-tender, no organomegaly Neurologic/Psych: unable to ascertain, patient intubted, sedated Cranial Nerves: unable to ascertain, patient intubated, sedated Results Pertinent Lab Results: Laboratory Tests 11/29 11/29 11/29 1055 0805 0500 Chemistry Lactic Acid (0.7 - 2.1 mmol/L) Pending 2.8 H 3.3 H Immunology OSCAR Titer Pending Anti-Nuclear Antibody Pending 11/29 11/29 0500 0205 Chemistry Sodium (137 - 145 mmol/L) 140 Potassium (3.5 - 5.1 mmol/L) 3.9 Chloride (98 - 107 mmol/L) 107 Carbon Dioxide (22 - 30 mmol/L) 22 Anion Gap (5 - 16) 11 BUN (9 - 20 mg/dL) 64 H Creatinine (0.7 - 1.2 mg/dL) 2.3 H Estimated GFR (>60 ml/min) 30 L Glucose (65 - 99 mg/dL) 190 H Lactic Acid (0.7 - 2.1 mmol/L) 3.5 H Calcium (8.4 - 10.2 mg/dL) 7.4 L Phosphorus (2.5 - 4.5 mg/dL) 4.0 Magnesium (1.6 - 2.3 mg/dL) 2.2 Total Bilirubin (0.2 - 1.3 mg/dL) 1.7 H AST (17 - 59 U/L) 117 H ALT (21 - 72 U/L) 44 Albumin (3.5 - 5.0 g/dL) 1.7 L Hematology CBC w Diff NO MAN DIFF REQ WBC (4.8 - 10.8 /CUMM) 44.5 *H RBC (4.70 - 6.10 /CUMM) 4.24 L Hgb (14.0 - 18.0 G/DL) 11.3 L Hct (42 - 52 %) 34.5 L MCV (80.0 - 94.0 FL) 81.5 MCH (27.0 - 31.0 PG) 26.7 L MCHC (33.0 - 37.0 G/DL) 32.8 L RDW (11.5 - 14.5 %) 14.6 H Plt Count (130 - 400 /CUMM) 119 L MPV (7.4 - 10.4 FL) 8.8 Gran % (42.2 - 75.2 %) 92.1 H Lymphocytes % (20.5 - 51.1 %) 4.2 L Monocytes % (1.7 - 9.3 %) 3.7 Eosinophils % (0 - 5 %) 0 Basophils % (0.0 - 2.0 %) 0 Absolute Granulocytes (1.4 - 6.5 /CUMM) 41.0 H Absolute Lymphocytes (1.2 - 3.4 /CUMM) 1.8 Absolute Monocytes (0.10 - 0.60 /CUMM) 1.6 H Absolute Eosinophils (0.0 - 0.7 /CUMM) 0 Absolute Basophils (0.0 - 0.2 /CUMM) 0 Immunology ANCA Pending Miscellaneous Ref Lab Test Result Pending 11/29 11/28 0205 2320 Blood Gas pH (7.35 - 7.45 PH) 7.38 pCO2 (35 - 45 TORR) 34 L pO2 (80 - 100 TORR) 181 H HCO3 (21 - 28 MEQ/L) 19 L ABG O2 Sat (Measured) (>96.0 %) 99.0 Carboxyhemoglobin (1.5 - 5.0 %) 1.0 L O2 Concentration % 50 Respiration Rate (BPM) 20 O2 Delivery Method VENT Vent Mode AC Expiratory Pressure (CMH2O/P) 5 Tidal Volume (CC) 550 Pressure Support (CMH2O/P) 0 Chemistry Sodium (137 - 145 mmol/L) 139 Potassium (3.5 - 5.1 mmol/L) 4.0 Chloride (98 - 107 mmol/L) 105 Carbon Dioxide (22 - 30 mmol/L) 23 Anion Gap (5 - 16) 12 BUN (9 - 20 mg/dL) 63 H Creatinine (0.7 - 1.2 mg/dL) 2.3 H Estimated GFR (>60 ml/min) 30 L Glucose (65 - 99 mg/dL) 202 H Calcium (8.4 - 10.2 mg/dL) 7.3 L Phosphorus (2.5 - 4.5 mg/dL) 4.2 Magnesium (1.6 - 2.3 mg/dL) 2.1 Total Bilirubin (0.2 - 1.3 mg/dL) 1.5 H AST (17 - 59 U/L) 113 H ALT (21 - 72 U/L) 42 Troponin I (<0.11 ng/ml) 0.09 Albumin (3.5 - 5.0 g/dL) 1.8 L Coagulation PT (9.4 - 12.5 SEC) 16.6 H INR (0.90 - 1.17) 1.52 H APTT (25 - 37 SEC) 39 H Hematology CBC w Diff MAN DIFF ORDERED WBC (4.8 - 10.8 /CUMM) 44.9 *H RBC (4.70 - 6.10 /CUMM) 4.19 L Hgb (14.0 - 18.0 G/DL) 11.3 L Hct (42 - 52 %) 34.0 L MCV (80.0 - 94.0 FL) 81.1 MCH (27.0 - 31.0 PG) 26.9 L MCHC (33.0 - 37.0 G/DL) 33.2 RDW (11.5 - 14.5 %) 14.5 Plt Count (130 - 400 /CUMM) 126 L MPV (7.4 - 10.4 FL) 8.7 Gran % (42.2 - 75.2 %) 92.3 H Lymphocytes % (20.5 - 51.1 %) 4.1 L Monocytes % (1.7 - 9.3 %) 3.6 Eosinophils % (0 - 5 %) 0 Basophils % (0.0 - 2.0 %) 0 Absolute Granulocytes (1.4 - 6.5 /CUMM) 41.5 H Segmented Neutrophils (42.2 - 75.2 %) 83 H Band Neutrophils (0.0 - 5.0 %) 6 H Absolute Lymphocytes (1.2 - 3.4 /CUMM) 1.9 Lymphocytes (20.5 - 51.1 %) 7 L Monocytes (1.7 - 9.3 %) 3 Absolute Monocytes (0.10 - 0.60 /CUMM) 1.6 H Eosinophils (0 - 5.0 %) 1 Absolute Eosinophils (0.0 - 0.7 /CUMM) 0 Absolute Basophils (0.0 - 0.2 /CUMM) 0 Platelet Estimate (ADEQUATE) DECREASED Hypochromic-Microcytic 1+ Anisocytosis 1+ Miscellaneous Phlebotomy Draw Site RIGHT RADIAL 11/28 Chemistry Sodium Cancelled Potassium Cancelled Chloride Cancelled Carbon Dioxide Cancelled Anion Gap Cancelled BUN Cancelled Creatinine Cancelled Glucose Cancelled Lactic Acid (0.7 - 2.1 mmol/L) 3.4 H Calcium Cancelled Phosphorus Cancelled Magnesium Cancelled Total Bilirubin Cancelled AST Cancelled ALT Cancelled Troponin I (<0.11 ng/ml) 0.09 Albumin Cancelled Coagulation APTT Cancelled Hematology CBC w Diff Cancelled WBC Cancelled RBC Cancelled Hgb Cancelled Hct Cancelled MCV Cancelled MCH Cancelled MCHC Cancelled RDW Cancelled Plt Count Cancelled MPV Cancelled 11/28 Chemistry Sodium (137 - 145 mmol/L) 139 Potassium (3.5 - 5.1 mmol/L) 3.9 Chloride (98 - 107 mmol/L) 105 Carbon Dioxide (22 - 30 mmol/L) 23 Anion Gap (5 - 16) 11 BUN (9 - 20 mg/dL) 61 H Creatinine (0.7 - 1.2 mg/dL) 2.1 H Estimated GFR (>60 ml/min) 34 L Glucose (65 - 99 mg/dL) 255 H Lactic Acid (0.7 - 2.1 mmol/L) 4.3 H Cancelled Calcium (8.4 - 10.2 mg/dL) 7.2 L Phosphorus (2.5 - 4.5 mg/dL) 4.7 H Magnesium (1.6 - 2.3 mg/dL) 2.1 Total Bilirubin (0.2 - 1.3 mg/dL) 1.1 AST (17 - 59 U/L) 102 H ALT (21 - 72 U/L) 40 Creatine Kinase (55 - 170 U/L) 4891 H Albumin (3.5 - 5.0 g/dL) 1.7 L Coagulation PT (9.4 - 12.5 SEC) 17.5 H INR (0.90 - 1.17) 1.60 H APTT (25 - 37 SEC) 40 H Hematology CBC w Diff MAN DIFF ORDERED WBC (4.8 - 10.8 /CUMM) 42.4 *H RBC (4.70 - 6.10 /CUMM) 3.91 L Hgb (14.0 - 18.0 G/DL) 10.6 L Hct (42 - 52 %) 32.1 L MCV (80.0 - 94.0 FL) 82.0 MCH (27.0 - 31.0 PG) 27.2 MCHC (33.0 - 37.0 G/DL) 33.2 RDW (11.5 - 14.5 %) 14.9 H Plt Count (130 - 400 /CUMM) 134 MPV (7.4 - 10.4 FL) 8.7 Gran % (42.2 - 75.2 %) 94.7 H Lymphocytes % (20.5 - 51.1 %) 2.7 L Monocytes % (1.7 - 9.3 %) 2.5 Eosinophils % (0 - 5 %) 0 Basophils % (0.0 - 2.0 %) 0.1 Absolute Granulocytes (1.4 - 6.5 /CUMM) 40.2 H Segmented Neutrophils (42.2 - 75.2 %) 70 Band Neutrophils (0.0 - 5.0 %) 14 H Absolute Lymphocytes (1.2 - 3.4 /CUMM) 1.2 Lymphocytes (20.5 - 51.1 %) 4 L Monocytes (1.7 - 9.3 %) 4 Absolute Monocytes (0.10 - 0.60 /CUMM) 1.1 H Absolute Eosinophils (0.0 - 0.7 /CUMM) 0 Absolute Basophils (0.0 - 0.2 /CUMM) 0.1 Metamyelocytes (0.0 - 1.0 %) 6 H Myelocytes (0 - 0 %) 2 H Platelet Estimate (ADEQUATE) VERIFIED BY SMEAR Polychromasia Basophilic Stippling SLIGHT Other Body Source Fld Total RBCs Counted (%) 100 11/28 11/28 11/28 1656 1237 1237 Chemistry Sodium (137 - 145 mmol/L) 134 L 135 L Potassium (3.5 - 5.1 mmol/L) 3.8 4.0 Chloride (98 - 107 mmol/L) 100 99 Carbon Dioxide (22 - 30 mmol/L) 20 L 16 L Anion Gap (5 - 16) 15 20 H BUN (9 - 20 mg/dL) 58 H 57 H Creatinine (0.7 - 1.2 mg/dL) 2.0 H 2.0 H Estimated GFR (>60 ml/min) 36 L 36 L BUN/Creatinine Ratio (7 - 25 %) 28.5 H Glucose (65 - 99 mg/dL) 472 H 557 *H Lactic Acid (0.7 - 2.1 mmol/L) 4.2 H 3.8 H Uric Acid (3.5 - 8.5 mg/dL) 8.7 H Calcium (8.4 - 10.2 mg/dL) 6.5 L Phosphorus (2.5 - 4.5 mg/dL) 5.2 H 6.3 H Magnesium (1.6 - 2.3 mg/dL) 2.1 2.2 Total Bilirubin (0.2 - 1.3 mg/dL) 1.0 AST (17 - 59 U/L) 102 H ALT (21 - 72 U/L) 38 Lactate Dehydrogenase (313 - 618 U/L) 2305 H Troponin I (<0.11 ng/ml) 0.07 C-Reactive Prot, Quant (<1.0 mg/dL) > 9.0 H Albumin (3.5 - 5.0 g/dL) 1.7 L Total PSA (0.00 - 4.00 ng/mL) 0.19 Hematology CBC w Diff MAN DIFF ORDERED WBC (4.8 - 10.8 /CUMM) 53.4 *H RBC (4.70 - 6.10 /CUMM) 4.07 L Hgb (14.0 - 18.0 G/DL) 11.1 L Hct (42 - 52 %) 33.2 L MCV (80.0 - 94.0 FL) 81.4 MCH (27.0 - 31.0 PG) 27.4 MCHC (33.0 - 37.0 G/DL) 33.6 RDW (11.5 - 14.5 %) 15.0 H Plt Count (130 - 400 /CUMM) 152 MPV (7.4 - 10.4 FL) 8.6 Gran % (42.2 - 75.2 %) 93.6 H Lymphocytes % (20.5 - 51.1 %) 2.6 L Monocytes % (1.7 - 9.3 %) 3.7 Eosinophils % (0 - 5 %) 0 Basophils % (0.0 - 2.0 %) 0.1 Absolute Granulocytes (1.4 - 6.5 /CUMM) 50.0 H Segmented Neutrophils (42.2 - 75.2 %) 77 H Band Neutrophils (0.0 - 5.0 %) 15 H Absolute Lymphocytes (1.2 - 3.4 /CUMM) 1.4 Lymphocytes (20.5 - 51.1 %) 2 L Monocytes (1.7 - 9.3 %) 1 L Absolute Monocytes (0.10 - 0.60 /CUMM) 2.0 H Absolute Eosinophils (0.0 - 0.7 /CUMM) 0 Absolute Basophils (0.0 - 0.2 /CUMM) 0 Metamyelocytes (0.0 - 1.0 %) 1 Myelocytes (0 - 0 %) 4 H Platelet Estimate (ADEQUATE) VERIFIED BY SMEAR Normocytic RBCs VERIFIED Normochromic RBCs VERIFIED ESR Westergren (0 - 10 MM) 55 H Immunology Rheum Factor Semi-Quant (<12 IU/Ml) 8.8 Other Body Source Fld Total RBCs Counted (%) 100 Serology Hep Bs Antigen (NONREACTIVE) NONREACTIVE Hep Bs Antibody (NONREACTIVE) NONREACTIVE Hep B Core IgM Ab Conf (NONREACTIVE) NONREACTIVE Hepatitis C Antibody (NONREACTIVE) NONREACTIVE HIV 1&2 Ab Western Blot (NONREACTIVE) NONREACTIVE 11/28 11/28 1124 1040 Blood Gas Bicarbonate Actual (22 - 26 MEQ/L) 14 L Mixed VBG pH (7.31 - 7.41 PH) 7.19 L Mixed VBG pCO2 (41 - 51 TORR) 38 L Mixed VBG O2 Saturation (35 - 45 TORR) 48 H P-50 (Temp Corrected) N Carboxyhemoglobin (1.5 - 5.0 %) 0.9 L O2 Concentration % 100% Temperature (97.0 - 100.0 FARH) 98.4 O2 Delivery Method NRB Coagulation PT (9.4 - 12.5 SEC) 40.7 H INR (0.90 - 1.17) 3.69 H APTT (25 - 37 SEC) 49 H Miscellaneous Phlebotomy Draw Site RAC Toxicology Acetone Level (NEGATIVE) POSITIVE AT 1:16 DIL 11/28 11/28 1020 1012 Blood Gas pH (7.35 - 7.45 PH) 7.25 *L pCO2 (35 - 45 TORR) 30 L pO2 (80 - 100 TORR) 271 H HCO3 (21 - 28 MEQ/L) 13 L ABG O2 Sat (Measured) (>96.0 %) 99.0 P-50 (Temp Corrected) N Carboxyhemoglobin (1.5 - 5.0 %) 0.5 L O2 Concentration % 100% Temperature (97.0 - 100.0 FARH) 98.4 O2 Delivery Method NRB Miscellaneous Phlebotomy Draw Site RIGHT RADIAL Toxicology Urine Opiates Screen (>2000 NG/ML) < 100 Methadone Screen (>300 NG/ML) < 40 Barbiturate Screen (>200 NG/ML) < 60 Ur Phencyclidine Scrn (>25 NG/ML) < 6.00 Amphetamines Screen (>1000 NG/ML) < 100 U Benzodiazepines Scrn (>200 NG/ML) < 85 Urine Cocaine Screen (>300 NG/ML) < 50 Urine Cannabis Screen (>50 NG/ML) > 80.00 H Urines Urinalysis LIGHT H Urine Color (YEL,AMB,STR) BLDY H Urine Clarity (CLEAR) TURBD H Urine pH (5.0 - 8.0) 7.0 Ur Specific [place] (1.001 - 1.035) 1.020 Urine Protein (NEG,<30 MG/DL) >=300 H Urine Ketones (NEG) 15 H Urine Nitrite (NEG) POS H Urine Bilirubin (NEG) NEG@ICTO Urine Urobilinogen (0.1 - 1.0 EU/dl) 4.0 H Ur Leukocyte Esterase (NEG) LARGE H Ur Microscopic SEDIMENT EXAMINED Urine RBC (0 - 5 /HPF) >75 H Urine WBC (0 - 2 /HPF) > 75 H Urine Bacteria (NEG/NONE) MANY H Micro UA Comment MORE INFO: H Urine Hemoglobin (NEG) LARGE H Urine Glucose (N MG/DL) 250 H 11/28 11/28 1011 1007 Chemistry Sodium (137 - 145 mmol/L) 133 L Potassium (3.5 - 5.1 mmol/L) 5.1 Chloride (98 - 107 mmol/L) 90 L Carbon Dioxide (22 - 30 mmol/L) 14 L Anion Gap (5 - 16) 29 H BUN (9 - 20 mg/dL) 56 H Creatinine (0.7 - 1.2 mg/dL) 2.3 H Estimated GFR (>60 ml/min) 30 L BUN/Creatinine Ratio (7 - 25 %) 24.3 Glucose (65 - 99 mg/dL) 702 *H Hemoglobin A1c (4.2 - 5.8 %) Pending Serum Osmolality (285 - 295 MOSM/KG) 339 H Lactic Acid (0.7 - 2.1 mmol/L) 5.6 H Calcium (8.4 - 10.2 mg/dL) 8.3 L Total Bilirubin (0.2 - 1.3 mg/dL) 1.4 H AST (17 - 59 U/L) 61 H ALT (21 - 72 U/L) 26 Alkaline Phosphatase (< 127 U/L) 297 H Troponin I (<0.11 ng/ml) 0.06 Total Protein (6.3 - 8.2 g/dL) 5.8 L Albumin (3.5 - 5.0 g/dL) 2.4 L Globulin (1.9 - 4.2 gm/dL) 3.4 Albumin/Globulin Ratio (1.1 - 2.2 %) 0.7 L Hematology CBC w Diff MAN DIFF ORDERED WBC (4.8 - 10.8 /CUMM) 71.8 *H RBC (4.70 - 6.10 /CUMM) 5.10 Hgb (14.0 - 18.0 G/DL) 13.8 L Hct (42 - 52 %) 42.0 MCV (80.0 - 94.0 FL) 82.5 MCH (27.0 - 31.0 PG) 27.0 MCHC (33.0 - 37.0 G/DL) 32.8 L RDW (11.5 - 14.5 %) 15.1 H Plt Count (130 - 400 /CUMM) 199 MPV (7.4 - 10.4 FL) 9.3 Gran % (42.2 - 75.2 %) 92.8 H Lymphocytes % (20.5 - 51.1 %) 3.6 L Monocytes % (1.7 - 9.3 %) 3.6 Eosinophils % (0 - 5 %) 0 Basophils % (0.0 - 2.0 %) 0 Absolute Granulocytes (1.4 - 6.5 /CUMM) 66.6 H Segmented Neutrophils (42.2 - 75.2 %) 77 H Band Neutrophils (0.0 - 5.0 %) 11 H Absolute Lymphocytes (1.2 - 3.4 /CUMM) 2.6 Lymphocytes (20.5 - 51.1 %) 5 L Monocytes (1.7 - 9.3 %) 1 L Absolute Monocytes (0.10 - 0.60 /CUMM) 2.6 H Absolute Eosinophils (0.0 - 0.7 /CUMM) 0 Absolute Basophils (0.0 - 0.2 /CUMM) 0 Metamyelocytes (0.0 - 1.0 %) 2 H Myelocytes (0 - 0 %) 4 H Platelet Estimate (ADEQUATE) ADEQUATE Normocytic RBCs VERIFIED Normochromic RBCs VERIFIED Toxicology Salicylates (0 - 20.0 mg/dL) < 1.0 Cancelled Acetaminophen (10.0 - 30.0 ug/mL) < 10.0 L Cancelled Serum Alcohol (<10 MG/DL) < 10.0 11/28 09 Toxicology Serum Alcohol Cancelled Assessment/Plan Assessment/Recommendations: ASSESSMENT: 1. Coffee-ground material in OG-tube. Question peptic ulcer disease given history of chronic NSAID use. Also given history of alcohol abuse and evidence of liver disease on routine laboratory studies question underlying portal hypertensive gastropathy or even possibly variceal disease. 2. Anemia likely chronic and multifactorial with a component of acute and chronic GI blood loss 3. Acute respiratory failure 4. Diabetic ketoacidosis 5. Sepsis 6. History of alcohol abuse, although patient by report is currently abstinent, there is evidence of underlying cirrhosis. Likely [id number] Class B cirrhosis. 7. Infected Sebacious Cyst RECOMMENDATIONS: 1. Protonix Drip 2. Serial H/H 3. Patient now has only bilious material in NGtube. Given multiple medical comorbidities as well as more pressing problems, we will defer endoscopy for now. However, should he have recurrent GI bleeding we will be happy to re- evaluate and consider endoscopic evaluation. At this time there is no role for GI in management of this patient. We will sign off. D/W Dr. Alexandre. Please do not hesitate to contact us if needed. Consult Acknowledgment - Thank you for your consult request.
--- NOTE | 2017-11-29 13:13 | PN- CRCU ---
Subjective HPI/Critical Care Issues: Events and data reviewed Patient continues to deteriorate unfortunately with septic shock requiring pressors As he was sensitive and septic his mental status continued to get worse and he had to be intubated for airway protection and dyspnea Subsequent OG tube placement did show some coffee ground material now draining biliary substance Patient is less responsive and lethargic Blood cultures reviewed which shows that he has staph aureus septicemia Echocardiogram reviewed no obvious endocarditis Lower extremity ultrasound unremarkable Objective Current Medications: Current Medications Sig/[place] Start time Last Medication Dose Route Stop Time Status Admin Acetaminophen 1,000 MG Q6P PRN 11/29 1230 CAN N/A 1 UNIT IV Acetaminophen 1,000 MG Q6P PRN 11/28 2115 AC 11/29 N/A 1 UNIT IV 1225 Acetaminophen 650 MG Q6P PRN 11/28 1215 DC PO Fentanyl Citrate 25 MCG Q2 HRS NEEDED PRN 11/29 1230 11/29 IV 1244 Heparin Sodium 5,000 UNIT Q8 11/29 0600 CAN (Porcine) SC Insulin Human Regular 100 UNIT Q24H 11/28 1215 11/29 Sodium Chloride 100 ML IV 0125 Lorazepam 0 Q1P PRN 11/28 1215 AC IV Non-Formulary 0 SEE ADMIN CRITERIA 11/28 1445 CAN Medication ANY Norepinephrine 4 MG Q10H 11/29 0915 11/29 Sodium Chloride 250 ML IV 0910 Norepinephrine 4 MG Q24H 11/28 2300 [place] 11/28 Sodium Chloride 250 ML IV 2230 Norepinephrine 4 MG .STK-MED ONE 11/28 2213 DC IV 11/28 2214 Pantoprazole Sodium 40 MG BID 11/29 0900 11/29 IV 0909 Pantoprazole Sodium 40 MG ONCE ONE 11/28 2245 [place] 11/28 IV 11/28 224 2241 Pantoprazole Sodium 40 MG DAILY 11/28 1501 [place] 11/28 IV 1625 Phenylephrine HCl 40 MG Q24H 11/29 1230 11/29 Dextrose/Water 250 ML IV 1243 Phytonadione 10 MG ONCE ONE 11/28 1415 [place] 11/28 SC 11/28 1416 1405 Piperacillin Sod/ 3.375 GM Q6H 11/28 1445 11/29 Tazobactam Sod IV 0909 Sodium Chloride 100 ML Potassium Chloride 20 MEQ Q8H 11/28 1200 11/29 Sodium Chloride 1,000 ML IV 1243 Sodium Chloride 1,000 ML BOLUS ONE 11/28 2015 DC 11/28 IV 11/28 Vancomycin HCl 1,000 MG DAILY@1100 11/29 1100 AC 11/29 Sodium Chloride 250 ML IV 1053 Vital Signs & I&O Last 24 Hrs of Vitals and I&O: Vital Signs Date Time Temp Pulse Resp B/P B/P Pulse O2 O2 Flow FiO2 Mean Ox Delivery Rate 11/29 1225 100.5 11/29 1200 99 Ventilator 30% 11/29 1156 30 11/29 0910 136 94/60 11/29 0843 30 11/29 0800 98.3 135 25 108/62 93 Ventilator 30% 11/29 0800 99 Ventilator 30% 11/29 0600 98.9 132 23 99/62 11/29 0523 30 11/29 0400 98.9 134 22 96/58 11/29 0400 99 Ventilator 30% 11/29 0257 30 11/29 0200 99.0 132 23 102/63 11/29 0026 40 11/29 0022 50 11/29 0000 99.0 132 21 104/56 11/29 0000 99.0 132 21 10456 99 Ventilator 50% 11/29 0000 99 Ventilator 50% 11/28 2317 50 11/28 2230 124 77/49 11/28 2215 99.5 11/28 2200 99.5 128 22 95/63 11/28 2115 102.1 11/29 1999 101.2 128 34 92/58 11/28 2000 91 Nasal 4.0L Cannula 11/28 1600 99.6 123 41 110/60 95 Nasal 2.0L Cannula 11/28 1600 93 Nasal 2.0L Cannula 11/28 1425 95 Nasal 2.0L Cannula 11/28 1320 99.3 124 40 104/60 95 Nasal 2.0L Cannula Intake & Output 11/29 1600 11/29 0800 11/29 0000 Intake Total 1014 2591 Output Total 450 450 Balance 564 2141 Intake, Blood 362 Product Intake, IV 1014 2229 Output, 0 150 Gastric Drainage Output, Urine 450 300 Impression/Plan Impression/Plan Impression/Plan: HEENT: Normal EENT exam; pupils are myotic, EOMI, no nystagmus. HEAD is atraumatic. moist mucous membranes. Neck: Supple, no lymphadenopathy, Cardiovascular: Tachycardic, regular rhythm no murmurs rubs or gallops, normal JVP Respiratory: Chest nontender.There were no bony deformities, no asymmetry. No respiratory distress. . Breath sounds clear to auscultation bilaterally: NO W/R/ R Abdomen: Soft, nontender nondistended, no appreciable organomegaly. Normal bowel sounds. No rebound/guarding, No appreciable enlargement of the abdominal aorta, No ascites. Mild tenderness in the right lower quadrant Extremity: Trace edema, responsive to pain, ecchymosis noted to the right shoulder full range of motion of extremities, no obvious deformity normal and equal pulses bilaterally, 5 out of 5 strength noted to bilateral upper and lower extremities Neuro: Lethargic, responsive to verbal and painful stimuli, There were no obvious focal neurologic abnormalities. Skin: Decub stage I skin changes, multiple small skin lesions in the lower extremity and upper extremity highly suggestive of small septic emboli, a draining infected sebaceous cyst looking lesion in the posterior left thigh CT scan of the head and neck was unremarkable no soft tissue mass cervical degeneration CT scan of the chest abdomen and pelvis reviewed bilateral pulmonary cavitary lesion highly suggestive of septic emboli differential diagnosis is broad, large mass with enlarged prostate. Last issues and the right is healed rectal. And soft tissue fullness involving the right gluteal region with cortical break in the right ischial tuberosity and the right inferior pubis. Patient has no history of trauma malignancy needs to be ruled out IMPRESSION This is a 47-year-old gentleman with previous history of diabetes, severe alcoholism has been sober for 6 months, severe depression in the past not on any medication, patient has not been using any drugs for moderate, marijuana positive in his urine (apparently his sister smokes in the same room) now comes in with significant lethargy worsening overall performance status with severe pain in the act and in the right posterior abdomen with the following issues * Staph aureus Septic shock with multiple organ failure with sub cut abcess in the thigh now with a mass in the perirectal area (tumor vs infection), ID, Surg, Urology and Cario onboard * Diabetes with severe hyperosmolar state with mild ketosis as well in a gentleman with type 2 diabetes * Multiple organ dysfunction including elevated INR, altered LFTs, electrolyte abnormality, with prob cirrhosis * Multiple lesions in the lung highly suggestive of septic emboli probably from the lower abdominal infection * Small skin lesions could also be the nidus /Large abscess probably infected sebaceous cyst in the left lower posterior thigh s/p I and D * Lethargy due to sepsis and hyperosmolar state no clinical evidence suggestive of active bacterial meningitis when he came in * So far no clinical evidence suggestive of intentional substance overdose RECOMMENDATION * Continue aggressive fluid resuscitation, and pressors * Will get IR to see pt today to do a needle aspiration of this mass and if it is pus then would need a drainage cath ( I did review the ct scan with gen surg angelica, GI to see today) (Urology note reviewed and they are aware of this mass lesion angelica) * Continue insulin drip * Continue urine output monitoring * Urine culture and cytology * Cardio to see and consider MAAME * Cont iv abx and id to decide on further care * IV proton pump inhibitory * Prognosis is very poor discussed with his family extensively today Time spent 60 minutes,
--- NOTE | 2017-11-29 13:20 | PN- Cardiology ---
Subjective Subjective: * Patient is septic and on multiple pressors. * sinus tachycardia * creatinine 2.3 Objective Vital Signs and I&Os Vital Signs Date Time Temp Pulse Resp B/P B/P Pulse O2 O2 Flow FiO2 Mean Ox Delivery Rate 11/29 1225 100.5 11/29 1200 99 Ventilator 30% 11/29 1156 30 11/29 0910 136 94/60 11/29 0843 30 11/29 0800 98.3 135 25 108/62 93 Ventilator 30% 11/29 0800 99 Ventilator 30% 11/29 0600 98.9 132 23 99/62 11/29 0523 30 11/29 0400 98.9 134 22 96/58 11/29 0400 99 Ventilator 30% 11/29 0257 30 11/29 0200 99.0 132 23 102/63 11/29 0026 40 11/29 0022 50 11/29 0000 99.0 132 21 104/56 11/29 0000 99.0 132 21 104/56 99 Ventilator 50% 11/29 0000 99 Ventilator 50% 11/28 2317 50 11/28 2230 124 77/49 11/28 2215 99.5 11/28 2200 99.5 128 22 95/63 11/28 2115 102.1 11/29 1999 101.2 128 34 92/58 11/29 1999 91 Nasal 4.0L Cannula 11/28 1600 99.6 123 41 110/60 95 Nasal 2.0L Cannula 11/28 1600 93 Nasal 2.0L Cannula 11/28 1425 95 Nasal 2.0L Cannula 11/28 1320 99.3 124 40 104/60 95 Nasal 2.0L Cannula Intake & Output 11/29 1600 11/29 0800 11/29 0000 11/28 1600 11/28 0800 11/28 0000 Intake Total 1014 2591 4223 Output Total 450 450 50 Balance 564 2141 4173 Intake, Blood 362 Product Intake, IV 1014 2229 4223 Intake, Oral 0 Number 1 Bowel Movements Output, 0 150 Gastric Drainage Output, Urine 450 300 50 Patient 198 lb Weight Weight Bed scale Measurement Method Physical Exam: General: WD/overeweight male in NAD; Intubated and unresponsive HEENT: NC/AT Neck: no JVD, no carotid bruit Heart: tachycardic with regular rhythm w/o murmur Lungs: clear bilaterally anteriorly Abdomen: soft, NT, +ve bowel sounds Extremities: no edema, lesion on left thigh Assessment/Plan Assessment/Plan * This patient has a normal, if not hyperdynamic EF without evidence of decompensated heart failure. He is on pressors for blood pressure support including norepinephrine but would also increase fluids to NS at 150cc/hr. The cardiac valves appear clean. If a high suspicion of endocarditis then a MAAME can be obtained later in the week. It appears that this patient has a couple potential sources of infection however. Continue antibiotic therapy for staph in both blood and urine. * This patient has a normal EF and would not be expected to have a malignant dysrhythmia causing his mental status changes. His mental lethargy is likely related to a hyperosmolar state and poor cerebral perfusion. Continue telemetry? Yes
--- NOTE | 2017-11-29 16:36 | CT SCAN REPORT ---
EXAMINATION: CT PELVIS WITHOUT CONTRAST CLINICAL INFORMATION: Pelvic mass versus cyst COMPARISON: Report of a CT from 11/28/2016 the images are not available. TECHNIQUE: Helical scanning was performed with submillimeter collimation through the pelvis. Sagittal and coronal multiplanar 2-D reconstructions were obtained. DLP: 1283 mGy-cm FINDINGS: PELVIS: There is multiloculated large fluid collection with air bubbles tracking within the deep muscle of the medial aspect of the RIGHT thigh extending from the level of the RIGHT hip and between the gluteal muscle and adductor muscles dissecting deep into the level of mid thigh. This is highly suspicious for an abscess/myositis. It extends superiorly to the hip joints. It measure roughly 10.9 x 8.5 cm axially and about 6 25 cm craniocaudally. There is Zabala catheter in the bladder. There is a trace amount of free fluid in the pelvis. There is thickening of the rectal wall posteriorly, cannot rule out perirectal abscess or mass. The area involved roughly measures 1.3 x 2 cm. OSSEOUS STRUCTURES: There are degenerative changes of the hip joints. Degenerative changes of the SI joints. There is heavy vascular calcifications. IMPRESSION: 1. Redemonstration of loculated complex fluid mass with air along the deep and posterior medial aspect of the RIGHT thigh from the RIGHT hip and initial tuberosity down to the mid thigh dissecting between and involving the muscle planes and femur. The presence of fluid and air bubbles worrisome for gas forming bacteria infection and developing abscess. The images of prior study is not available for exact comparison. 2. Hypodense 2 cm fluid or soft tissue mass perirectal region, cannot rule out an abscess or rectal mass. Correlate with physical exam. Findings can be assessed best with an MRI with IV contrast. 3. Free fluid in the pelvis. Zabala catheter in place. Degenerative changes age related.
--- NOTE | 2017-11-29 18:14 | PN- Infect Dx ---
Subjective Subjective: Febrile past 24 h; s/p pelvic abscess drainage by IR; ROSMERY in place with thick brownish drainage. Intubated. Review of Systems Comments: 12 points reviewed as noted, otherwise negative. Objective Last 24 Hrs of Vital Signs/I&O Vital Signs Date Time Temp Pulse Resp B/P B/P Pulse O2 O2 Flow FiO2 Mean Ox Delivery Rate 11/29 1600 101.6 132 26 118/60 99 Ventilator 30% 11/29 1600 93 Ventilator 30% 11/29 1521 30 11/29 1330 100.0 11/29 1225 100.5 11/29 1200 99 Ventilator 30% 11/29 1156 30 11/29 0910 136 94/60 11/29 0843 30 11/29 0800 98.3 135 25 108/62 93 Ventilator 30% 11/29 0800 99 Ventilator 30% 11/29 0600 98.9 132 23 99/62 11/29 0523 30 11/29 0400 98.9 134 22 96/58 11/29 0400 99 Ventilator 30% 11/29 0257 30 11/29 0200 99.0 132 23 102/63 11/29 0026 40 11/29 0022 50 11/29 0000 99.0 132 21 104/56 11/29 0000 99.0 132 21 104/56 99 Ventilator 50% 11/29 0000 99 Ventilator 50% 11/28 2317 50 11/28 2230 124 77/49 11/28 2215 99.5 11/28 2200 99.5 128 22 95/63 11/28 2115 102.1 11/29 1999 101.2 128 34 92/58 11/29 1999 91 Nasal 4.0L Cannula Intake & Output 11/29 1600 11/29 0800 11/29 0000 Intake Total 1397 1014 2591 Output Total 700 450 450 Balance 592 305 6305 Intake, Blood 362 Product Intake, IV 1397 1014 2229 Output, 100 0 150 Gastric Drainage Output, Urine 600 450 300 Physical Exam Other Physical Findings: General Appearance: sedated, intubated Head: atraumatic, normal appearance Eyes: Bilateral: normal appearance. Neck: normal inspection Respiratory: normal breath sounds, chest non-tender, no respiratory distress, lungs clear Cardiovascular: regular rate/rhythm, tachycardic, normal S1 and S2 without rub, murmur or gallop Gastrointestinal: normal bowel sounds, soft, non-tender, no organomegaly Neurologic/Psych: unable to ascertain, patient intubted, sedated Cranial Nerves: unable to ascertain, patient intubated, sedated Results Last 24 Hours of Lab Results: Laboratory Tests 11/29 11/29 11/29 11/29 1405 1055 0805 0500 Chemistry Lactic Acid (0.7 - 2.1 mmol/L) 2.5 H 2.7 H 2.8 H 3.3 H Immunology OSCAR Titer Pending Anti-Nuclear Antibody Pending 11/29 11/29 0500 0205 Chemistry Sodium (137 - 145 mmol/L) 140 Potassium (3.5 - 5.1 mmol/L) 3.9 Chloride (98 - 107 mmol/L) 107 Carbon Dioxide (22 - 30 mmol/L) 22 Anion Gap (5 - 16) 11 BUN (9 - 20 mg/dL) 64 H Creatinine (0.7 - 1.2 mg/dL) 2.3 H Estimated GFR (>60 ml/min) 30 L Glucose (65 - 99 mg/dL) 190 H Lactic Acid (0.7 - 2.1 mmol/L) 3.5 H Calcium (8.4 - 10.2 mg/dL) 7.4 L Phosphorus (2.5 - 4.5 mg/dL) 4.0 Magnesium (1.6 - 2.3 mg/dL) 2.2 Total Bilirubin (0.2 - 1.3 mg/dL) 1.7 H AST (17 - 59 U/L) 117 H ALT (21 - 72 U/L) 44 Albumin (3.5 - 5.0 g/dL) 1.7 L Hematology CBC w Diff NO MAN DIFF REQ WBC (4.8 - 10.8 /CUMM) 44.5 *H RBC (4.70 - 6.10 /CUMM) 4.24 L Hgb (14.0 - 18.0 G/DL) 11.3 L Hct (42 - 52 %) 34.5 L MCV (80.0 - 94.0 FL) 81.5 MCH (27.0 - 31.0 PG) 26.7 L MCHC (33.0 - 37.0 G/DL) 32.8 L RDW (11.5 - 14.5 %) 14.6 H Plt Count (130 - 400 /CUMM) 119 L MPV (7.4 - 10.4 FL) 8.8 Gran % (42.2 - 75.2 %) 92.1 H Lymphocytes % (20.5 - 51.1 %) 4.2 L Monocytes % (1.7 - 9.3 %) 3.7 Eosinophils % (0 - 5 %) 0 Basophils % (0.0 - 2.0 %) 0 Absolute Granulocytes (1.4 - 6.5 /CUMM) 41.0 H Absolute Lymphocytes (1.2 - 3.4 /CUMM) 1.8 Absolute Monocytes (0.10 - 0.60 /CUMM) 1.6 H Absolute Eosinophils (0.0 - 0.7 /CUMM) 0 Absolute Basophils (0.0 - 0.2 /CUMM) 0 Immunology ANCA Pending Miscellaneous Ref Lab Test Result Pending 11/29 11/28 0205 2320 Blood Gas pH (7.35 - 7.45 PH) 7.38 pCO2 (35 - 45 TORR) 34 L pO2 (80 - 100 TORR) 181 H HCO3 (21 - 28 MEQ/L) 19 L ABG O2 Sat (Measured) (>96.0 %) 99.0 Carboxyhemoglobin (1.5 - 5.0 %) 1.0 L O2 Concentration % 50 Respiration Rate (BPM) 20 O2 Delivery Method VENT Vent Mode AC Expiratory Pressure (CMH2O/P) 5 Tidal Volume (CC) 550 Pressure Support (CMH2O/P) 0 Chemistry Sodium (137 - 145 mmol/L) 139 Potassium (3.5 - 5.1 mmol/L) 4.0 Chloride (98 - 107 mmol/L) 105 Carbon Dioxide (22 - 30 mmol/L) 23 Anion Gap (5 - 16) 12 BUN (9 - 20 mg/dL) 63 H Creatinine (0.7 - 1.2 mg/dL) 2.3 H Estimated GFR (>60 ml/min) 30 L Glucose (65 - 99 mg/dL) 202 H Calcium (8.4 - 10.2 mg/dL) 7.3 L Phosphorus (2.5 - 4.5 mg/dL) 4.2 Magnesium (1.6 - 2.3 mg/dL) 2.1 Total Bilirubin (0.2 - 1.3 mg/dL) 1.5 H AST (17 - 59 U/L) 113 H ALT (21 - 72 U/L) 42 Troponin I (<0.11 ng/ml) 0.09 Albumin (3.5 - 5.0 g/dL) 1.8 L Coagulation PT (9.4 - 12.5 SEC) 16.6 H INR (0.90 - 1.17) 1.52 H APTT (25 - 37 SEC) 39 H Hematology CBC w Diff MAN DIFF ORDERED WBC (4.8 - 10.8 /CUMM) 44.9 *H RBC (4.70 - 6.10 /CUMM) 4.19 L Hgb (14.0 - 18.0 G/DL) 11.3 L Hct (42 - 52 %) 34.0 L MCV (80.0 - 94.0 FL) 81.1 MCH (27.0 - 31.0 PG) 26.9 L MCHC (33.0 - 37.0 G/DL) 33.2 RDW (11.5 - 14.5 %) 14.5 Plt Count (130 - 400 /CUMM) 126 L MPV (7.4 - 10.4 FL) 8.7 Gran % (42.2 - 75.2 %) 92.3 H Lymphocytes % (20.5 - 51.1 %) 4.1 L Monocytes % (1.7 - 9.3 %) 3.6 Eosinophils % (0 - 5 %) 0 Basophils % (0.0 - 2.0 %) 0 Absolute Granulocytes (1.4 - 6.5 /CUMM) 41.5 H Segmented Neutrophils (42.2 - 75.2 %) 83 H Band Neutrophils (0.0 - 5.0 %) 6 H Absolute Lymphocytes (1.2 - 3.4 /CUMM) 1.9 Lymphocytes (20.5 - 51.1 %) 7 L Monocytes (1.7 - 9.3 %) 3 Absolute Monocytes (0.10 - 0.60 /CUMM) 1.6 H Eosinophils (0 - 5.0 %) 1 Absolute Eosinophils (0.0 - 0.7 /CUMM) 0 Absolute Basophils (0.0 - 0.2 /CUMM) 0 Platelet Estimate (ADEQUATE) DECREASED Hypochromic-Microcytic 1+ Anisocytosis 1+ Miscellaneous Phlebotomy Draw Site RIGHT RADIAL 11/28 11/28 11/28 2300 2244 224 Chemistry Sodium Cancelled Potassium Cancelled Chloride Cancelled Carbon Dioxide Cancelled Anion Gap Cancelled BUN Cancelled Creatinine Cancelled Glucose Cancelled Lactic Acid (0.7 - 2.1 mmol/L) 3.4 H Calcium Cancelled Phosphorus Cancelled Magnesium Cancelled Total Bilirubin Cancelled AST Cancelled ALT Cancelled Troponin I (<0.11 ng/ml) 0.09 Albumin Cancelled Coagulation APTT Cancelled Hematology CBC w Diff Cancelled WBC Cancelled RBC Cancelled Hgb Cancelled Hct Cancelled MCV Cancelled MCH Cancelled MCHC Cancelled RDW Cancelled Plt Count Cancelled MPV Cancelled 11/28 Chemistry Sodium (137 - 145 mmol/L) 139 Potassium (3.5 - 5.1 mmol/L) 3.9 Chloride (98 - 107 mmol/L) 105 Carbon Dioxide (22 - 30 mmol/L) 23 Anion Gap (5 - 16) 11 BUN (9 - 20 mg/dL) 61 H Creatinine (0.7 - 1.2 mg/dL) 2.1 H Estimated GFR (>60 ml/min) 34 L Glucose (65 - 99 mg/dL) 255 H Lactic Acid (0.7 - 2.1 mmol/L) 4.3 H Cancelled Calcium (8.4 - 10.2 mg/dL) 7.2 L Phosphorus (2.5 - 4.5 mg/dL) 4.7 H Magnesium (1.6 - 2.3 mg/dL) 2.1 Total Bilirubin (0.2 - 1.3 mg/dL) 1.1 AST (17 - 59 U/L) 102 H ALT (21 - 72 U/L) 40 Creatine Kinase (55 - 170 U/L) 4891 H Albumin (3.5 - 5.0 g/dL) 1.7 L Coagulation PT (9.4 - 12.5 SEC) 17.5 H INR (0.90 - 1.17) 1.60 H APTT (25 - 37 SEC) 40 H Hematology CBC w Diff MAN DIFF ORDERED WBC (4.8 - 10.8 /CUMM) 42.4 *H RBC (4.70 - 6.10 /CUMM) 3.91 L Hgb (14.0 - 18.0 G/DL) 10.6 L Hct (42 - 52 %) 32.1 L MCV (80.0 - 94.0 FL) 82.0 MCH (27.0 - 31.0 PG) 27.2 MCHC (33.0 - 37.0 G/DL) 33.2 RDW (11.5 - 14.5 %) 14.9 H Plt Count (130 - 400 /CUMM) 134 MPV (7.4 - 10.4 FL) 8.7 Gran % (42.2 - 75.2 %) 94.7 H Lymphocytes % (20.5 - 51.1 %) 2.7 L Monocytes % (1.7 - 9.3 %) 2.5 Eosinophils % (0 - 5 %) 0 Basophils % (0.0 - 2.0 %) 0.1 Absolute Granulocytes (1.4 - 6.5 /CUMM) 40.2 H Segmented Neutrophils (42.2 - 75.2 %) 70 Band Neutrophils (0.0 - 5.0 %) 14 H Absolute Lymphocytes (1.2 - 3.4 /CUMM) 1.2 Lymphocytes (20.5 - 51.1 %) 4 L Monocytes (1.7 - 9.3 %) 4 Absolute Monocytes (0.10 - 0.60 /CUMM) 1.1 H Absolute Eosinophils (0.0 - 0.7 /CUMM) 0 Absolute Basophils (0.0 - 0.2 /CUMM) 0.1 Metamyelocytes (0.0 - 1.0 %) 6 H Myelocytes (0 - 0 %) 2 H Platelet Estimate (ADEQUATE) VERIFIED BY SMEAR Polychromasia Basophilic Stippling SLIGHT Other Body Source Fld Total RBCs Counted (%) 100 Last 24 Hours of Rl Results: SPEC #: [id number] AUGIE: 11/28/17 STATUS: RES RECD: 11/28/[address] [facility] [address]: Paras Gautam SOURCE: BLOOD ENTR: 11/28/17 [facility] DR: Emilio Kim DO SPDESC: 1ST/VENOUS ORDERED: BLOOD CULTURE Procedure Result > BLOOD CULTURE REPORT Preliminary 11/29/17 GRAM STAIN SUGGESTIVE OF: GRAM POSITIVE COCCI IN CLUSTERS Called to/Readback by ANABELLE by FLOYD 11/28/171924 CULTURE: STAPH AUREUS ISOLATED NOTE THIS IS A PRELIMINARY REPORT: IF: patient has had significant exposure to a healthcare setting in the past three (3) months, THEN: suspect Methicillin Resistant Staph aureus and place patient on Contact precautions PENDING susceptibility results TO FOLLOW Recent Imaging Studies: FINDINGS: PELVIS: There is multiloculated large fluid collection with air bubbles tracking within the deep muscle of the medial aspect of the RIGHT thigh extending from the level of the RIGHT hip and between the gluteal muscle and adductor muscles dissecting deep into the level of mid thigh. This is highly suspicious for an abscess/myositis. It extends superiorly to the hip joints. It measure roughly 10.9 x 8.5 cm axially and about 6 25 cm craniocaudally. There is Zabala catheter in the bladder. There is a trace amount of free fluid in the pelvis. There is thickening of the rectal wall posteriorly, cannot rule out perirectal abscess or mass. The area involved roughly measures 1.3 x 2 cm. OSSEOUS STRUCTURES: There are degenerative changes of the hip joints. Degenerative changes of the SI joints. There is heavy vascular calcifications. IMPRESSION: 1. Redemonstration of loculated complex fluid mass with air along the deep and posterior medial aspect of the RIGHT thigh from the RIGHT hip and initial tuberosity down to the mid thigh dissecting between and involving the muscle planes and femur. The presence of fluid and air bubbles worrisome for gas forming bacteria infection and developing abscess. The images of prior study is not available for exact comparison. 2. Hypodense 2 cm fluid or soft tissue mass perirectal region, cannot rule out an abscess or rectal mass. Correlate with physical exam. Findings can be assessed best with an MRI with IV contrast. 3. Free fluid in the pelvis. Zabala catheter in place. Degenerative changes age related. DICTATED BY: Kamar REYNOLDS,Hadeer DATE/TIME DICTATED:11/29/171617 MIND READER:MONIK DATE/TIME TRANSCRIBED:11/29/171617 CONFIDENTIAL, DO NOT COPY WITHOUT APPROPRIATE AUTHORIZATION. Assessment/Plan ID Impression: 47-year-old M with previous history of diabetes, severe alcoholism, severe depression admitted with S. aureus sepsis. 1. Loculated complex fluid mass with air along the deep and posterior medial aspect of the RIGHT thigh [] presence of fluid and air bubbles worrisome for gas forming bacteria infection and developing abscess. 2. Multiple lesions in the lung highly suggestive of septic emboli; r/o infective endocarditis; 2D Echo results reviewed 3. Abscess left lower posterior thigh s/p I&D previous day 4. Leukemoid reaction; WBC trending down Suggestion: 1. F/U final culture results; broad abx coverage with iv Vancomycin/Zosyn pending above. 2. MAAME eval vegetations. He will eventually require MRI brain/spine. 3. F/U pulm recom; sx; urology; GI and ortho recom. 4. Trend CBC, BMP. Repeat BC daily x 3 days.
[2017-11-30] VITALS (8 sets, daily range): BP systolic 92–106; BP diastolic 53–64
[2017-11-30 05:26] LABS: ABSOLUTE BASOPHIL COUNT 0 /CUMM (0.0-0.2); ABSOLUTE EOSINOPHIL COUNT 0 /CUMM (0.0-0.7); ABSOLUTE MONOCYTE COUNT 1.1 /CUMM (0.10-0.60)
[2017-11-30 05:33] LABS: ABSOLUTE GRANULOCYTE CT 20.7 /CUMM (1.4-6.5); ABSOLUTE LYMPH COUNT 1.9 /CUMM (1.2-3.4); BASOPHIL % 0.2 % (0.0-2.0); EOSINOPHIL % 0.1 % (0-5); GRANULOCYTE % 87.3 % (42.2-75.2); MEAN CORPUSCULAR HGB 26.7 PG (27.0-31.0); MEAN CORPUSCULAR HGB CONC 33.2 G/DL (33.0-37.0); MEAN CORPUSCULAR VOLUME 80.4 FL (80.0-94.0); MEAN PLATELET VOLUME 9.4 FL (7.4-10.4); PLATELET COUNT 60 /CUMM (130-400); RBC DISTRIBUTION WIDTH 14.7 % (11.5-14.5); RED BLOOD CELL CT 3.49 /CUMM (4.70-6.10)
[2017-11-30 05:34] LABS: WHITE BLOOD CELL COUNT 23.7 /CUMM (4.8-10.8)
[2017-11-30 05:36] LABS: HEMATOCRIT 28.1 % (42-52)
--- NOTE | 2017-11-30 10:33 | PN- Resident CRCU ---
Subjective HPI/CRCU Issues: 1.Septic shock 2. Hyperosmolar hyperglycemia 3 Coffee-ground material in OG-tube. 4 Anemia 5. Acute respiratory failure 6. Sepsis 7. History of alcohol abuse, with possible evidence of underlying cirrhosis. 8. Infected Sebacious Cyst 9. Masslike appearance on the ischio-rectal rectal area on the right side 24 Hour Events: Tmax 100.8, sinus tachycardia 112-124 peak been minutes, RR 21-24, blood pressure 95/56 to 102/64 mmHg, no events overnight Objective Vital Signs & I&O Last 8 Hrs of Vitals and I&O: As above Patient seen and examined today, intubated, awake, alert, nodding his head to answer questions, denies abdominal pain, pelvic pain, able to wiggle his toes when asking to. Exam General Appearance: alert, awake, intubated Head: atraumatic, normal appearance Neck: normal inspection Respiratory: rhonchi Cardiovascular: regular rate/rhythm, normal peripheral pulses Gastrointestinal: normal bowel sounds, soft, non-tender Extremities: normal inspection, normal capillary refill Central Line Site: right internal jugular Date In: 11/28/17 Need for Catheter: pressors Zabala Still Needed? Yes NG Tube Still Needed? Yes IV (Peripheral) Still Needed? Yes IV Drips IV Drips: Neosynephrine Levophed tapered off at 3 am today Nutrition Nutrition: NPO Current Medications: Current Medications Sig/[place] Start time Last Medication Dose Route Stop Time Status Admin Acetaminophen 1,000 MG .STK-MED ONE 11/30 0217 DC IV 11/30 0218 Acetaminophen 1,000 MG Q6P PRN 11/29 1230 CAN N/A 1 UNIT IV Acetaminophen 1,000 MG Q6P PRN 11/28 2115 AC 11/30 N/A 1 UNIT IV 0218 Fentanyl Citrate 25 MCG Q2 HRS NEEDED PRN 11/29 1230 AC 11/29 IV 1537 Insulin Human Regular 100 UNIT Q24H 11/28 1215 11/29 Sodium Chloride 100 ML IV 0125 Lorazepam 0 Q1P PRN 11/28 1215 AC IV Norepinephrine 4 MG .STK-MED ONE 11/29 1649 DC IV 11/29 1650 Norepinephrine 4 MG Q10H 11/29 0915 11/29 Sodium Chloride 250 ML IV 0910 Pantoprazole Sodium 40 MG BID 11/29 0900 AC 11/30 IV 0933 Phenylephrine HCl 40 MG Q15H 11/30 0345 AC 11/30 Sodium Chloride 250 ML IV 0215 Phenylephrine HCl 40 MG .STK-MED ONE 11/29 1236 DC IM 11/29 1237 Phenylephrine HCl 40 MG Q24H 11/29 1230 DC 11/29 Dextrose/Water 250 ML IV 11/30 0344 1243 Piperacillin Sod/ 3.375 GM Q6H 11/28 1445 AC 11/30 Tazobactam Sod IV 0933 Sodium Chloride 100 ML Potassium Chloride 20 MEQ Q6H 11/30 0645 AC 11/30 Dextrose/Sodium 1,000 ML IV 0804 Chloride Potassium Chloride 20 MEQ Q6H 11/29 2045 DC 11/30 Sodium Chloride 1,000 ML IV 0333 Potassium Chloride 20 MEQ Q8H 11/28 1200 DC 11/29 Sodium Chloride 1,000 ML IV 2033 Sodium Chloride 1,000 ML Q6H 11/29 2000 DC IV Vancomycin HCl 1,000 MG DAILY@1100 11/29 1100 AC 11/30 Sodium Chloride 250 ML IV 1021 Impression/Plan Impression/Problem List Impression: 47-year-old gentleman with a past medical history of diabetes, depression, alcoholism, BIBA evaluation of significant lethargy and is found to be septic with Kana can elevated white blood count, and temperature. Also found to be in severe hyperosmolar hyperglycemic state. Impression Respiratory: * Acute hypoxic respiratory failure s/p intubation on 12/29/2017. Continue with current setting of VT 550, PEEP of 5, and RR20. * Will hold om SBT today till off pressors * Will check ABG today Infection: * Sepsis with multiorgan failure, gram-positive bacteremia. * A CT finding of masslike sensation on the right pelvic/ thigh area. Currently medically optimized broad spectrum antibiotic with Zosyn and vancomycin (day2), a white count is still persistent and he continues to have fevers. * S/P abscess IR guided abcess drainage with placement of 2 drainage tube. * Case discussed with Dr. Fletcher (Orthopedist), no spread of the infection, no need for bone washout * Imaging shows evidence of perirectal fistula, he is improving medically, Dr. Alexandre discussed the case with general surgery Dr. Delong for now will repeat CT abdomen/ pelvis tomorrow to evaluate the size of abcess, he may need to go back to OR for perirectal fistula. * NG tube clampped, will keep him for now * If no plan for OR tomorrow will start tube feed (Jevity) Cardiac: * Tachycardia, sinus rhythm. Most likely secondary to sepsis and pain. NO Arrhythmias noted on telemetry monitors. * Still needing pressors, Levophed off, still on neosynephrine * Titrate pressors as tolerated Hematological: * Improved white blood cell count, however bandemia has resolved. This is more likely secondary to infection. * Thrombocytopenia, possibly secondary to sepsis. Even though the platelet count is almost half of the admitting day count , Will check coag to r/o DIC * CBC AT AM Metabolic: * Hyperosmolar state secondary to elevated blood sugars. We'll continue with hydration and insulin drip for now. * Endocrinology on board, if continue to improve will switch to SC insulin Alimentary: * Keep nothing by mouth, NG tube in place (Clammped). No longer producing any coffee-ground drainage. * GI on board Neuro: Awake, alert, respond to questions FC DVT ppx ALPS Problem List: 1. Abscess of left thigh 2. JAMAL (acute kidney injury) 3. Sepsis 4. Hyperglycemia 5. Abdominal visceral abscess Pain Ratin Tomorrow's Labs & Rationales: ICU lab bundle, CBC Plan DVT/Prophylaxis: mechanical
--- NOTE | 2017-11-30 10:53 | PN- CRCU ---
Subjective HPI/Critical Care Issues: Events and data reviewed Patient is much improved Did undergo IR guided aspiration and drainage of 2 large abscesses in the posterior thigh Slowly coming off pressors Adequately fluid resuscitated Continues to be on broad-spectrum antibiotics Fever curve is down MAXIMUM TEMPERATURE is 100.8 More awake alert responding to commands not in pain Other history could not be obtained Significant data creatinine stabilizing at 2.2 BUN still elevated at 66 sodium is elevated at 150 chloride is elevated His magnesium is adequate Phosphorus has come down to 4.4 albumin is low Total bilirubin is down to 1.4 alkaline phosphatase is slightly elevated AST ALT trending down his last CPK was elevated at 4891 this needs to be repeated CRP was elevated Urine tox screen was only positive for contact us White count down to 23,000 hemoglobin 9.3 platelets are down to 60 INR is 1.5 to yesterday ABG since 2 days ago was reviewed needs to have a repeat ABG blood pressure has been adequate Urine output has been adequate CT scan of the pelvis done yesterday showed loculated complex fluid mass with hair along the deep and posterior medial aspect of the right thigh from the right hip and ischial tuberosity down to the mid thigh dissecting between and involving the muscle planes and femur this has been aspirated surgical consult also consult pending Also has a 2 cm fluid or soft tissue mass perirectal region cannot rule out abscess Objective Current Medications: Current Medications Sig/[place] Start time Last Medication Dose Route Stop Time Status Admin Acetaminophen 1,000 MG .STK-MED ONE 11/30 0217 DC IV 11/30 0218 Acetaminophen 1,000 MG Q6P PRN 11/29 1230 CAN N/A 1 UNIT IV Acetaminophen 1,000 MG Q6P PRN 11/28 2115 11/30 N/A 1 UNIT IV 0218 Fentanyl Citrate 25 MCG Q2 HRS NEEDED PRN 11/29 1230 AC 11/29 IV 1537 Insulin Human Regular 100 UNIT Q24H 11/28 1215 11/29 Sodium Chloride 100 ML IV 0125 Lorazepam 0 Q1P PRN 11/28 1215 AC IV Norepinephrine 4 MG .STK-MED ONE 11/29 1649 DC IV 11/29 1650 Norepinephrine 4 MG Q10H 11/29 0915 11/29 Sodium Chloride 250 ML IV 0910 Pantoprazole Sodium 40 MG BID 11/29 0900 11/30 IV 0933 Phenylephrine HCl 40 MG Q15H 11/30 0345 AC 11/30 Sodium Chloride 250 ML IV 0215 Phenylephrine HCl 40 MG .STK-MED ONE 11/29 1236 DC IM 11/29 1237 Phenylephrine HCl 40 MG Q24H 11/29 1230 DC 11/29 Dextrose/Water 250 ML IV 11/30 0344 1243 Piperacillin Sod/ 3.375 GM Q6H 11/28 1445 AC 11/30 Tazobactam Sod IV 0933 Sodium Chloride 100 ML Potassium Chloride 20 MEQ Q6H 11/30 0645 AC 11/30 Dextrose/Sodium 1,000 ML IV 0804 Chloride Potassium Chloride 20 MEQ Q6H 11/29 2045 DC 11/30 Sodium Chloride 1,000 ML IV 0333 Potassium Chloride 20 MEQ Q8H 11/28 1200 DC 11/29 Sodium Chloride 1,000 ML IV 2033 Sodium Chloride 1,000 ML Q6H 11/29 2000 DC IV Vancomycin HCl 1,000 MG DAILY@1100 11/29 1100 AC 11/30 Sodium Chloride 250 ML IV 1021 Vital Signs & I&O Last 24 Hrs of Vitals and I&O: Vital Signs Date Time Temp Pulse Resp B/P B/P Pulse O2 O2 Flow FiO2 Mean Ox Delivery Rate 11/30 0837 28 11/30 0800 99.6 105 23 100/60 99 Ventilator 28% 11/30 0800 98 Ventilator 28% 11/30 0612 28 11/30 0600 100.0 108 20 95/54 11/30 0400 100.0 112 23 104/62 11/30 0400 98 Ventilator 28% 11/30 0317 100.0 11/30 0307 28 11/30 0218 100.8 11/30 0200 100.8 118 23 92/62 11/30 0017 28 11/30 0000 100.8 126 26 106/64 11/30 0000 100.8 126 26 106/64 98 Ventilator 28% 11/30 0000 99 Ventilator 28% 11/29 2257 11/29 2200 98.8 128 26 85/58 11/295 28 11/30 1999 98.8 11/30 1999 98.8 132 24 104/64 11/30 1999 99 Ventilator 30% 11/29 1900 101.2 11/29 1805 11/29 1600 101.6 132 26 118/60 99 Ventilator 30% 11/29 1600 93 Ventilator 30% 11/29 1521 30 11/29 1330 100.0 05/27 1225 100.5 11/29 1200 99 Ventilator 30% 11/29 1156 30 Intake & Output 11/30 1600 11/30 0800 11/30 0000 Intake Total 1656 1404 Output Total 898 655 Balance 758 749 Intake, IV 1656 1404 Output, 48 30 Drainage Output, 125 75 Gastric Drainage Output, Urine 725 550 Impression/Plan Impression/Plan Impression/Plan: HEENT: Normal EENT exam; pupils are myotic, EOMI, no nystagmus. HEAD is atraumatic. moist mucous membranes. Neck: Supple, no lymphadenopathy, Cardiovascular: Tachycardic, regular rhythm no murmurs rubs or gallops, normal JVP Respiratory: Chest nontender.There were no bony deformities, no asymmetry. No respiratory, intubated distress. . Breath sounds clear to auscultation bilaterally: NO W/R/R Abdomen: Soft, nontender nondistended, no appreciable organomegaly. Normal bowel sounds. No rebound/guarding, No appreciable enlargement of the abdominal aorta, No ascites. Mild tenderness in the right lower quadrant, ventral hernia Extremity: Trace edema, responsive to pain, ecchymosis noted to the right shoulder full range of motion of extremities, no obvious deformity normal and equal pulses bilaterally, Two drainage cath in the post thigh draining abscess Neuro: responsive to verbal and painful stimuli, There were no obvious focal neurologic abnormalities. Skin: Decub stage I skin changes, multiple small skin lesions in the lower extremity and upper extremity highly suggestive of small septic emboli, a draining infected sebaceous cyst looking lesion in the posterior left thigh still has some fluid CT scan of the head and neck was unremarkable no soft tissue mass cervical degeneration CT scan of the chest abdomen and pelvis reviewed bilateral pulmonary cavitary lesion highly suggestive of septic emboli differential diagnosis is broad, large mass with enlarged prostate. Last issues and the right is healed rectal. And soft tissue fullness involving the right gluteal region with cortical break in the right ischial tuberosity and the right inferior pubis. Patient has no history of trauma malignancy needs to be ruled out CT pelvis seen IMPRESSION This is a 47-year-old gentleman with previous history of diabetes, severe alcoholism has been sober for 6 months, severe depression in the past not on any medication, patient has not been using any drugs for moderate, marijuana positive in his urine (apparently his sister smokes in the same room) now comes in with significant lethargy worsening overall performance status with severe pain in the hip area and in the right posterior abdomen with the following issues * Staph aureus Septic shock with multiple organ failure with Multiple sub cut abcess, PRob osteo of the hip with large abscess in the post thigh (S/p IR drainage), with a lesion in the post perirectal area lesion, ID, Surg, Urology and Cardio onboard, Ortho has been called since yesterday and surg pa made awrae * Diabetes with severe hyperosmolar state with mild ketosis as well in a gentleman with type 2 diabetes, improving * Multiple organ dysfunction including elevated INR, altered LFTs, electrolyte abnormality, with prob cirrhosis * ARF now creat stablizing * THrombocytopenia, altered lfts, with prob cirrhosis with sepsis * Elevated cpk and ldh due to myonecrosis and sepsis * Multiple lesions in the lung highly suggestive of septic emboli probably from the lower abdominal infection * Small skin lesions could also be the nidus /Large abscess probably infected sebaceous cyst in the left lower posterior thigh s/p I and D * Improving Lethargy due to sepsis and hyperosmolar state no clinical evidence suggestive of active bacterial meningitis * So far no clinical evidence suggestive of intentional substance overdose RECOMMENDATION * Continue pressors and cont ivf, goal cvp is 8, Watch for pulm edema, cont d5 .45 ns with potassium and reduce rate to 75 cc * Call surg PA and ask ORTHO to see pt today as he may need to go to OR for wash out of the joint (Dr. Flynn was called yesteday by surg PA) * Ask Gen surg to reeval to see if the needs to go to the OR for Perirectal area drainage or for exploration of thigh * Check cpk, INR, LDH again * Continue insulin drip * IV ppi * Clamp ng tube and later can start 20 cc tube feeding with jevity * Continue urine output monitoring * Cardio to see and pt needs MAAME * Cont iv abx and id to decide on tapering on abx, and guidence for further surg exploration if needed * IV proton pump inhibitory * Venodyne boots (not on heparin due to low platelets) * IF he goes into pulm edema and if cvp is more than 12 then will challenge with lasix * ABG * Prognosis is very poor discussed with his family extensively yesterday and today Time spent 60 minutes,
--- NOTE | 2017-11-30 12:20 | PN- Diabetes ---
Assessment/Plan Diabetes Assessment: 47 y/o male hx of diabetes type 2 on metformin in the past, presented with unresponsiveness. In ER, he was found to have glucose level of over 700 along with acute renal insufficency and mild ketosis. Imaging studies revealed an abscess in his left thigh, a mass in the right ischiorectal fossa and multiple thick-walled bilateral cavitary lesions in his lung. Blood culture was positive for Grams positive cocci in clusters. He underwent the draininage of the right ischorectal fossa abscess. His HbA1c was 12.4%. He remains intubated. But he is awake. Now he is still on one pressor. Insulin drip has been between 2.5 units per hour and 3 units per hour. His FSGs were between 120 and 180. Sodium was 150 this morning. IVF was changed to D5 1/2 NS with KCL at 150 ml/ hour. Plan: continue the insulin drip for now; please inform me after patient is off on pressor and then I will change the insulin drip to insulin sc regimen. monitor FSGs and electrolytes. will follow. Subjective Subjective: patient is intubated. Objective Last 24 Hrs of Vital Signs/I&O Vital Signs Date Time Temp Pulse Resp B/P B/P Pulse O2 O2 Flow FiO2 Mean Ox Delivery Rate 11/30 1139 11/30 0837 11/30 0800 99.6 105 23 100/60 99 Ventilator 28% 11/30 0800 98 Ventilator 28% 11/30 0612 11/30 0600 100.0 108 20 95/54 11/30 0400 100.0 112 23 104/62 11/30 0400 98 Ventilator 28% 11/30 0317 100.0 11/30 0307 11/30 0218 100.8 11/30 0200 100.8 118 23 92/62 11/30 0017 11/30 0000 100.8 126 26 106/64 11/30 0000 100.8 126 26 106/64 98 Ventilator 28% 11/30 0000 99 Ventilator 28% 11/29 2257 11/29 2200 98.8 128 26 85/58 11/29 2055 11/29 98.8 11/30 1999 98.8 132 24 104/64 11/30 1999 99 Ventilator 30% 11/29 1900 101.2 11/29 18011/29 1600 101.6 132 26 118/60 99 Ventilator 30% 11/29 1600 93 Ventilator 30% 11/29 1521 30 11/29 1330 100.0 11/29 1225 100.5 Intake & Output 11/30 1600 11/30 0800 11/30 0000 Intake Total 1656 1404 Output Total 898 655 Balance 758 749 Intake, IV 1656 1404 Output, 48 30 Drainage Output, 125 75 Gastric Drainage Output, Urine 725 550 Findings Pertinent Lab/Rl Results: Laboratory Tests 11/30 11/30 11/30 1100 0435 0115 Blood Gas pH (7.35 - 7.45 PH) 7.47 H pCO2 (35 - 45 TORR) 27 L pO2 (80 - 100 TORR) 115 H HCO3 (21 - 28 MEQ/L) 19 L ABG O2 Sat (Measured) (>96.0 %) 98.0 P-50 (Temp Corrected) N Carboxyhemoglobin (1.5 - 5.0 %) 0.5 L O2 Concentration % 28% Respiration Rate (BPM) 20 O2 Delivery Method VENT Vent Mode AC Expiratory Pressure (CMH2O/P) 5 Tidal Volume (CC) 550 Pressure Support (CMH2O/P) 0 Chemistry Sodium (137 - 145 mmol/L) 150 H Potassium (3.5 - 5.1 mmol/L) 3.9 Chloride (98 - 107 mmol/L) 118 H Carbon Dioxide (22 - 30 mmol/L) 22 Anion Gap (5 - 16) 10 BUN (9 - 20 mg/dL) 66 H Creatinine (0.7 - 1.2 mg/dL) 2.2 H Estimated GFR (>60 ml/min) 32 L Glucose (65 - 99 mg/dL) 122 H Lactic Acid (0.7 - 2.1 mmol/L) 1.9 Calcium (8.4 - 10.2 mg/dL) 6.7 L Phosphorus (2.5 - 4.5 mg/dL) 4.4 Magnesium (1.6 - 2.3 mg/dL) 2.2 Total Bilirubin (0.2 - 1.3 mg/dL) 1.4 H AST (17 - 59 U/L) 88 H ALT (21 - 72 U/L) 42 Albumin (3.5 - 5.0 g/dL) 1.5 L Hematology CBC w Diff MAN DIFF ORDERED WBC (4.8 - 10.8 /CUMM) 23.7 H RBC (4.70 - 6.10 /CUMM) 3.49 L Hgb (14.0 - 18.0 G/DL) 9.3 L Hct (42 - 52 %) 28.1 L MCV (80.0 - 94.0 FL) 80.4 MCH (27.0 - 31.0 PG) 26.7 L MCHC (33.0 - 37.0 G/DL) 33.2 RDW (11.5 - 14.5 %) 14.7 H Plt Count (130 - 400 /CUMM) 60 L MPV (7.4 - 10.4 FL) 9.4 Gran % (42.2 - 75.2 %) 87.3 H Lymphocytes % (20.5 - 51.1 %) 7.8 L Monocytes % (1.7 - 9.3 %) 4.6 Eosinophils % (0 - 5 %) 0.1 Basophils % (0.0 - 2.0 %) 0.2 Absolute Granulocytes (1.4 - 6.5 /CUMM) 20.7 H Segmented Neutrophils (42.2 - 75.2 %) 73 Band Neutrophils (0.0 - 5.0 %) 8 H Absolute Lymphocytes (1.2 - 3.4 /CUMM) 1.9 Lymphocytes (20.5 - 51.1 %) 11 L Monocytes (1.7 - 9.3 %) 6 Absolute Monocytes (0.10 - 0.60 /CUMM) 1.1 H Absolute Eosinophils (0.0 - 0.7 /CUMM) 0 Absolute Basophils (0.0 - 0.2 /CUMM) 0 Metamyelocytes (0.0 - 1.0 %) 2 H Platelet Estimate (ADEQUATE) DECREASED Polychromasia 1+ Hypochromic-Microcytic 2+ Miscellaneous Phlebotomy Draw Site RIGHT RADIAL 11/29 11/29 11/29 0775 1854 1405 Chemistry Lactic Acid (0.7 - 2.1 mmol/L) 2.3 H 2.6 H 2.5 H
[2017-11-30 14:28] LABS: PT 16.4 SEC (9.4-12.5)
--- NOTE | 2017-11-30 14:36 | PN- Cardiology ---
Subjective Subjective: * Patient is awake and responsive. He denies headache or chest discomfort. * sinus rhythm * creatinine is 2.2 * platelets low at 60K * decreasing WBC count with intermittent fever * Currently on Mikal to maintain blood pressure Objective Vital Signs and I&Os Vital Signs Date Time Temp Pulse Resp B/P B/P Pulse O2 O2 Flow FiO2 Mean Ox Delivery Rate 11/30 1200 97 Ventilator 28% 11/30 1139 28 11/30 0837 28 11/30 0800 99.6 105 23 100/60 99 Ventilator 28% 11/30 0800 98 Ventilator 28% 11/30 0612 11/30 0600 100.0 108 20 95/54 11/30 0400 100.0 112 23 104/62 11/30 0400 98 Ventilator 28% 11/30 0317 100.0 11/30 0307 11/30 0218 100.8 11/30 0200 100.8 118 23 92/62 11/30 0017 28 11/30 0000 100.8 126 26 106/64 11/30 0000 100.8 126 26 106/64 98 Ventilator 28% 11/30 0000 99 Ventilator 28% 11/29 2257 28 11/29 2200 98.8 128 26 85/58 11/29 2055 28 11/29 2000 98.8 11/30 1999 98.8 132 24 104/64 11/29 2000 99 Ventilator 30% 11/29 1900 101.2 11/29 1805 30 11/29 1600 101.6 132 26 118/60 99 Ventilator 30% 11/29 1600 93 Ventilator 30% 11/29 1521 30 Intake & Output 11/30 1600 11/30 0800 11/30 0000 11/29 1600 11/29 0811/29 0000 Intake Total 1656 1404 1397 1014 2591 Output Total 898 655 700 450 450 Balance 758 749 459 654 8092 Intake, Blood 362 Product Intake, IV 1656 1404 1397 1014 2229 Output, 48 30 Drainage Output, 125 75 100 0 150 Gastric Drainage Output, Urine 725 550 600 450 300 Physical Exam: General: WD/overweight male in NAD; Intubated; alert and oriented HEENT: NC/AT Neck: no JVD, no carotid bruit Heart: RRR w/o murmur Lungs: clear bilaterally anteriorly Abdomen: soft, NT, +ve bowel sounds Extremities: no edema Assessment/Plan Assessment/Plan * This patient has a normal, if not hyperdynamic EF without evidence of decompensated heart failure. He is on neosynephrine to maintain his blood pressure but has come off his other pressors. Wean down as tolerated by BP. Continue NS at a lower rate of 75cc/hr. The cardiac valves appear clean. If a high suspicion of endocarditis then a MAAME can be obtained. It appears that this patient has a couple potential sources of infection however. Continue antibiotic therapy for staph in both blood and urine. * This patient has a normal EF and would not be expected to have a malignant dysrhythmia causing his mental status changes. His mental lethargy was likely related to a hyperosmolar state and poor cerebral perfusion and has improved. * Dropping platelet level and increased INR in the setting of sepsis that is suggestive of DIC. Would check PT, PTT, fibrinogen level and D-dimer to assess for DIC. Continue telemetry? Yes
--- NOTE | 2017-11-30 14:43 | RADIOLOGY REPORT ---
EXAMINATION: XR CHEST, PORTABLE CLINICAL INFORMATION: A 47-year-old male with suspected multiple bilateral septic pulmonary emboli, seen on prior CT of the chest, abdomen and pelvis done on 11/28/2017. The patient is on mechanical ventilation. For follow-up. COMPARISON: CT of the chest, abdomen and pelvis done on 11/28/2017 and portable chest radiograph done on 11/28/2017. TECHNIQUE: Portable frontal view of the chest was obtained. FINDINGS: The right IJ central line is projecting within the proximal superior vena cava, appear unchanged. The tip of the endotracheal tube is located approximately 8.2 cm above the level of the jessica. The tip of the enteric tube is not optimally visualized due to underexposure. Previous CT detected multiple cavitary as well as solid lesions are not reproduced on the current radiograph due to difference in modality. The cardiomediastinal silhouette is within normal limits. There is no pleural effusion present. Compared to prior study dated 11/28/2017, there is no significant radiographic change identified. IMPRESSION: 1. The position of the right IJ central line is seen in the region of the proximal superior vena cava, unchanged. 2. The tip of the endotracheal tube is located 8.2 cm above the level of the jessica. 3. The tip of the enteric tube is not visualized due to underexposure and accordingly cannot be assessed. 4. Previous CT detected multifocal solid and cavitary lesions, presumably representing septic emboli are not reproduced in the current study likely related to modality difference. However, when compared to prior chest radiograph done on 11/28/2017, there is no significant pleural-parenchymal change identified. 5. Specifically, no new abnormalities.
[2017-11-30 15:28] LABS: PTT 45 SEC (25-37)
--- NOTE | 2017-11-30 16:34 | PN- General Surgery ---
Subjective Subjective: 47 y/o male, sedated and inbubated on vent responds and opens eyes to touch Mother present to give history of events Objective Vital Signs and I&Os Vital Signs Date Time Temp Pulse Resp B/P B/P Pulse O2 O2 Flow FiO2 Mean Ox Delivery Rate 11/30 1600 98.9 114 25 104/62 98 Ventilator 28% 11/30 1600 99 Ventilator 28% 11/30 1427 11/30 1200 97 Ventilator 28% 11/30 1139 28 11/30 0837 28 11/30 0800 99.6 105 23 100/60 99 Ventilator 28% 11/30 0800 98 Ventilator 28% 11/30 0612 11/30 0600 100.0 108 20 95/54 11/30 0400 100.0 112 23 104/62 11/30 0400 98 Ventilator 28% 11/30 0317 100.0 11/30 0307 11/30 0218 100.8 11/30 0200 100.8 118 23 92/62 11/30 0017 28 11/30 0000 100.8 126 26 106/64 11/30 0000 100.8 126 26 106/64 98 Ventilator 28% 11/30 0000 99 Ventilator 28% 11/29 2257 28 11/29 2200 98.8 128 26 85/58 11/29 2055 28 11/30 1999 98.8 11/30 1999 98.8 132 24 10464 11/30 1999 99 Ventilator 30% 11/29 1900 101.2 11/29 1805 30 Intake & Output 11/30 1600 11/30 0800 11/30 0000 11/29 1600 11/29 0800 11/29 0000 Intake Total 1651.3 1656 1404 1397 1014 2591 Output Total 1090 898 655 700 450 450 Balance 561.3 758 749 802 912 9392 Intake, Blood 362 Product Intake, IV 1651.3 1656 1404 1397 1014 2229 Intake, Oral 0 Number 1 Bowel Movements Output, Chest 35 Tube Drainage Output, 48 30 Drainage Output, 75 125 75 100 0 150 Gastric Drainage Output, Urine 980 725 550 600 450 300 Physical Exam: Intubated and arousable S/P I+D left thigh -CDI right thigh with drain placed through IR with minimal output. bilateral lower extremities -soft without edema Current Medications: Current Medications Sig/[place] Start time Last Medication Dose Route Stop Time Status Admin Acetaminophen 1,000 MG .STK-MED ONE 11/30 0217 DC IV 11/30 0218 Acetaminophen 1,000 MG Q6P PRN 11/28 2115 11/30 N/A 1 UNIT IV 0218 Fentanyl Citrate 25 MCG Q2 HRS NEEDED PRN 11/29 1230 11/30 IV 1224 Insulin Human Regular 100 UNIT Q24H 11/28 1215 11/30 Sodium Chloride 100 ML IV 1225 Lorazepam 0 Q1P PRN 11/28 1215 IV Norepinephrine 4 MG .STK-MED ONE 11/29 1649 DC IV 11/29 1650 Norepinephrine 4 MG Q10H 11/29 0915 MI 11/29 Sodium Chloride 250 ML IV 0910 Pantoprazole Sodium 40 MG BID 11/29 0900 11/30 IV 0933 Phenylephrine HCl 40 MG Q15H 11/30 0345 11/30 Sodium Chloride 250 ML IV 1528 Phenylephrine HCl 40 MG Q24H 11/29 1230 MI 11/29 Dextrose/Water 250 ML IV 11/30 0344 1243 Piperacillin Sod/ 3.375 GM Q6H 11/28 1445 11/30 Tazobactam Sod IV 1528 Sodium Chloride 100 ML Potassium Chloride 20 MEQ Q6H 11/30 0645 11/30 Dextrose/Sodium 1,000 ML IV 1529 Chloride Potassium Chloride 20 MEQ Q6H 11/29 2045 MI 11/30 Sodium Chloride 1,000 ML IV 0333 Potassium Chloride 20 MEQ Q8H 11/28 1200 MI 11/29 Sodium Chloride 1,000 ML IV 2033 Sodium Chloride 1,000 ML Q6H 11/29 2000 DC IV Vancomycin HCl 1,000 MG DAILY@1100 11/29 1100 11/30 Sodium Chloride 250 ML IV 1021 Assessment/Plan Assessment/Plan Right thigh deep abscess with drain placed per IR, awaiting further instruction and input drom Dr. Delong S/P Left posterior thigh ulceration/abscess Admission Lab Results I reviewed the following labs: Laboratory Tests 11/30 11/30 11/30 1449 1302 1100 Blood Gas pH (7.35 - 7.45 PH) 7.47 H pCO2 (35 - 45 TORR) 27 L pO2 (80 - 100 TORR) 115 H HCO3 (21 - 28 MEQ/L) 19 L ABG O2 Sat (Measured) (>96.0 %) 98.0 P-50 (Temp Corrected) N Carboxyhemoglobin (1.5 - 5.0 %) 0.5 L O2 Concentration % 28% Respiration Rate (BPM) 20 O2 Delivery Method VENT Vent Mode AC Expiratory Pressure (CMH2O/P) 5 Tidal Volume (CC) 550 Pressure Support (CMH2O/P) 0 Coagulation PT (9.4 - 12.5 SEC) 16.4 H INR (0.90 - 1.17) 1.50 H APTT (25 - 37 SEC) 45 H Fibrinogen Activity (200 - 393 MG/DL) Cancelled 557 H D-Dimer High Sensitivty (0 - 243 ng/ml) 2038 H Miscellaneous Phlebotomy Draw Site RIGHT RADIAL 11/30 11/30 11/29 11/29 0435 0115 2205 1854 Chemistry Sodium (137 - 145 mmol/L) 150 H Potassium (3.5 - 5.1 mmol/L) 3.9 Chloride (98 - 107 mmol/L) 118 H Carbon Dioxide (22 - 30 mmol/L) 22 Anion Gap (5 - 16) 10 BUN (9 - 20 mg/dL) 66 H Creatinine (0.7 - 1.2 mg/dL) 2.2 H Estimated GFR (>60 ml/min) 32 L Glucose (65 - 99 mg/dL) 122 H Lactic Acid (0.7 - 2.1 mmol/L) 1.9 2.3 H 2.6 H Calcium (8.4 - 10.2 mg/dL) 6.7 L Phosphorus (2.5 - 4.5 mg/dL) 4.4 Magnesium (1.6 - 2.3 mg/dL) 2.2 Total Bilirubin (0.2 - 1.3 mg/dL) 1.4 H AST (17 - 59 U/L) 88 H ALT (21 - 72 U/L) 42 Lactate Dehydrogenase (313 - 618 U/L) 2041 H Creatine Kinase (55 - 170 U/L) 970 H Albumin (3.5 - 5.0 g/dL) 1.5 L Hematology CBC w Diff MAN DIFF ORDERED WBC (4.8 - 10.8 /CUMM) 23.7 H RBC (4.70 - 6.10 /CUMM) 3.49 L Hgb (14.0 - 18.0 G/DL) 9.3 L Hct (42 - 52 %) 28.1 L MCV (80.0 - 94.0 FL) 80.4 MCH (27.0 - 31.0 PG) 26.7 L MCHC (33.0 - 37.0 G/DL) 33.2 RDW (11.5 - 14.5 %) 14.7 H Plt Count (130 - 400 /CUMM) 60 L MPV (7.4 - 10.4 FL) 9.4 Gran % (42.2 - 75.2 %) 87.3 H Lymphocytes % (20.5 - 51.1 %) 7.8 L Monocytes % (1.7 - 9.3 %) 4.6 Eosinophils % (0 - 5 %) 0.1 Basophils % (0.0 - 2.0 %) 0.2 Absolute Granulocytes (1.4 - 6.5 /CUMM) 20.7 H Segmented Neutrophils (42.2 - 75.2 %) 73 Band Neutrophils (0.0 - 5.0 %) 8 H Absolute Lymphocytes (1.2 - 3.4 /CUMM) 1.9 Lymphocytes (20.5 - 51.1 %) 11 L Monocytes (1.7 - 9.3 %) 6 Absolute Monocytes (0.10 - 0.60 /CUMM) 1.1 H Absolute Eosinophils (0.0 - 0.7 /CUMM) 0 Absolute Basophils (0.0 - 0.2 /CUMM) 0 Metamyelocytes (0.0 - 1.0 %) 2 H Platelet Estimate (ADEQUATE) DECREASED Polychromasia 1+ Hypochromic-Microcytic 2+ Admission Meds I reviewed the following Meds: Current Medications Sig/[place] Start time Last Medication Dose Stop Time Status Admin Acetaminophen 1,000 MG Q6P PRN 11/28 2114 AC 11/30 (Ofirmev) 0218 N/A 1 UNIT (No Carrier) Fentanyl Citrate 25 MCG Q2 HRS NEEDED PRN 11/29 1230 AC 11/30 (Fentanyl 100MCG 2ML 1224 Amp Inj) Insulin Human Regular 100 UNIT Q24H 11/28 1215 AC 11/30 (Novolin R (Insulin 1225 Drip)) Sodium Chloride 100 ML (Normal Saline 0.9%) Lorazepam 0 Q1P PRN 11/28 1215 AC (Ativan) Pantoprazole Sodium 40 MG BID 11/29 0900 11/30 (Protonix) 0933 Phenylephrine HCl 40 MG Q15H 11/30 0345 11/30 (Neosynephrine Drip 1528 (Phenylephrine)) Sodium Chloride 250 ML (Normal Saline 0.9%) Piperacillin Sod/ 3.375 GM Q6H 11/28 1445 11/30 Tazobactam Sod 1528 (Zosyn) Sodium Chloride 100 ML (Normal Saline 0.9%) Potassium Chloride 20 MEQ Q6H 11/30 0645 11/30 (KCl 20MEQ in D5W 9 2NS 1000ML) Dextrose/Sodium 1,000 ML Chloride (D5W-07/07 Normal Saline 1000ML) Vancomycin HCl 1,000 MG DAILY@1100 11/29 1100 11/30 Sodium Chloride 250 ML 1021 (Normal Saline 0.9%) CT scan of lower extremity Redemonstration of loculated complex fluid mass with air along the deep and posterior medial aspect of the RIGHT thigh from the RIGHT hip and initial tuberosity down to the mid thigh dissecting between and involving the muscle planes and femur. The presence of fluid and air bubbles worrisome for gas forming bacteria infection and developing abscess. The images of prior study is not available for exact comparison. 2. Hypodense 2 cm fluid or soft tissue mass perirectal region, cannot rule out an abscess or rectal mass. Correlate with physical exam. Findings can be assessed best with an MRI with IV contrast. 3. Free fluid in the pelvis. Zabala catheter in place. Degenerative changes age related. Core Measures Venous Thromboembolism VTE Risk Factors Acute Medical Illness No Mechanical VTE Prophylaxis d/t N/A MechProphylax Ordered No VTE Pharm Prophylaxis d/t Supratherapeutic INR
--- NOTE | 2017-11-30 17:07 | PN- Infect Dx ---
Subjective Subjective: Febrile past 24 h; with fever curve trending down T max 100.8F; s/p large R thigh abscess drainage by IR; [address] with light brownish drainage. Intubated. Awake. Review of Systems Comments: 12 points reviewed as noted, otherwise negative Objective Last 24 Hrs of Vital Signs/I&O Vital Signs Date Time Temp Pulse Resp B/P B/P Pulse O2 O2 Flow FiO2 Mean Ox Delivery Rate 11/30 1600 98.9 114 25 104/62 98 Ventilator 28% 11/30 1600 99 Ventilator 28% 11/30 1427 28 11/30 1200 97 Ventilator 28% 11/30 1139 28 11/30 0837 28 11/30 0800 99.6 105 23 100/60 99 Ventilator 28% 11/30 0800 98 Ventilator 28% 11/30 0612 11/30 0600 100.0 108 20 95/54 11/30 0400 100.0 112 23 104/62 11/30 0400 98 Ventilator 28% 11/30 0317 100.0 11/30 0307 11/30 0218 100.8 11/30 0200 100.8 118 23 92/62 11/30 0017 11/30 0000 100.8 126 26 106/64 11/30 0000 100.8 126 26 106/64 98 Ventilator 28% 11/30 0000 99 Ventilator 28% 11/29 2257 11/29 2200 98.8 128 26 85/58 11/29 2055 28 11/30 1999 98.8 11/30 1999 98.8 132 24 104/64 11/30 1999 99 Ventilator 30% 11/29 1900 101.2 11/29 1805 30 Intake & Output 11/30 1600 11/30 0800 11/30 0000 Intake Total 1651.3 1656 1404 Output Total 1090 898 655 Balance 561.3 758 749 Intake, IV 1651.3 1656 1404 Intake, Oral 0 Number 1 Bowel Movements Output, Chest 35 Tube Drainage Output, 48 30 Drainage Output, 75 125 75 Gastric Drainage Output, Urine 980 725 550 Physical Exam Other Physical Findings: General Appearance: sedated, intubated Head: atraumatic, normal appearance Neck: normal inspection Respiratory: normal breath sounds, diminished bases Cardiovascular: regular rate/rhythm, tachycardic, normal S1 and S2 without rub, murmur or gallop Gastrointestinal: normal bowel sounds, soft, non-tender Neurologic/Psych: awake; earlier today moving all extr Results Last 24 Hours of Lab Results: Laboratory Tests 11/30 11/30 11/30 1449 1302 1100 Blood Gas pH (7.35 - 7.45 PH) 7.47 H pCO2 (35 - 45 TORR) 27 L pO2 (80 - 100 TORR) 115 H HCO3 (21 - 28 MEQ/L) 19 L ABG O2 Sat (Measured) (>96.0 %) 98.0 P-50 (Temp Corrected) N Carboxyhemoglobin (1.5 - 5.0 %) 0.5 L O2 Concentration % 28% Respiration Rate (BPM) 20 O2 Delivery Method VENT Vent Mode AC Expiratory Pressure (CMH2O/P) 5 Tidal Volume (CC) 550 Pressure Support (CMH2O/P) 0 Coagulation PT (9.4 - 12.5 SEC) 16.4 H INR (0.90 - 1.17) 1.50 H APTT (25 - 37 SEC) 45 H Fibrinogen Activity (200 - 393 MG/DL) Cancelled 557 H D-Dimer High Sensitivty (0 - 243 ng/ml) 2038 H Miscellaneous Phlebotomy Draw Site RIGHT RADIAL 11/30 11/30 11/29 11/29 0435 0115 2205 1854 Chemistry Sodium (137 - 145 mmol/L) 150 H Potassium (3.5 - 5.1 mmol/L) 3.9 Chloride (98 - 107 mmol/L) 118 H Carbon Dioxide (22 - 30 mmol/L) 22 Anion Gap (5 - 16) 10 BUN (9 - 20 mg/dL) 66 H Creatinine (0.7 - 1.2 mg/dL) 2.2 H Estimated GFR (>60 ml/min) 32 L Glucose (65 - 99 mg/dL) 122 H Lactic Acid (0.7 - 2.1 mmol/L) 1.9 2.3 H 2.6 H Calcium (8.4 - 10.2 mg/dL) 6.7 L Phosphorus (2.5 - 4.5 mg/dL) 4.4 Magnesium (1.6 - 2.3 mg/dL) 2.2 Total Bilirubin (0.2 - 1.3 mg/dL) 1.4 H AST (17 - 59 U/L) 88 H ALT (21 - 72 U/L) 42 Lactate Dehydrogenase (313 - 618 U/L) 2041 H Creatine Kinase (55 - 170 U/L) 970 H Albumin (3.5 - 5.0 g/dL) 1.5 L Hematology CBC w Diff MAN DIFF ORDERED WBC (4.8 - 10.8 /CUMM) 23.7 H RBC (4.70 - 6.10 /CUMM) 3.49 L Hgb (14.0 - 18.0 G/DL) 9.3 L Hct (42 - 52 %) 28.1 L MCV (80.0 - 94.0 FL) 80.4 MCH (27.0 - 31.0 PG) 26.7 L MCHC (33.0 - 37.0 G/DL) 33.2 RDW (11.5 - 14.5 %) 14.7 H Plt Count (130 - 400 /CUMM) 60 L MPV (7.4 - 10.4 FL) 9.4 Gran % (42.2 - 75.2 %) 87.3 H Lymphocytes % (20.5 - 51.1 %) 7.8 L Monocytes % (1.7 - 9.3 %) 4.6 Eosinophils % (0 - 5 %) 0.1 Basophils % (0.0 - 2.0 %) 0.2 Absolute Granulocytes (1.4 - 6.5 /CUMM) 20.7 H Segmented Neutrophils (42.2 - 75.2 %) 73 Band Neutrophils (0.0 - 5.0 %) 8 H Absolute Lymphocytes (1.2 - 3.4 /CUMM) 1.9 Lymphocytes (20.5 - 51.1 %) 11 L Monocytes (1.7 - 9.3 %) 6 Absolute Monocytes (0.10 - 0.60 /CUMM) 1.1 H Absolute Eosinophils (0.0 - 0.7 /CUMM) 0 Absolute Basophils (0.0 - 0.2 /CUMM) 0 Metamyelocytes (0.0 - 1.0 %) 2 H Platelet Estimate (ADEQUATE) DECREASED Polychromasia 1+ Hypochromic-Microcytic 2+ Last 24 Hours of Rl Results: SPEC #: [id number] AUGIE: 11/30/171316 STATUS: RECD RECD: 11/30/171402 SUBM DR: Sheryl REYNOLDS,Afaf SOURCE: BLOOD ENTR: 11/30/17-[address] [facility] [address]: Nico REYNOLDS,Anaya [facility]: 2ND/VENOUS Julio DOEmilio W. ORDERED: BLOOD CULTURE Procedure Result BLOOD CULTURE PENDING Procedure Result > URINE CULTURE Final 11/30/17-1120 Greater than 100,000 colonies per ml of: STAPH AUREUS ISOLATED 1. STAPH AUREUS RX ABN ------ --- 1. STAPH AUREUS RX AB ------ -- CEFAZOLIN S AMOXICILLIN/CLAVULINIC ACID S AMPICILLIN/SULBACTAM S NITROFURANTOIN S TETRACYCLINE S TRIMETHOPRIM/SULFAMETHOXAZOLE S AZITHROMYCIN S CLINDAMYCIN S ERYTHROMYCIN S OXACILLIN S VANCOMYCIN S Note: Infectious Diseases Society of [place] Guidelines state that asymptomatic bacteriuria is not associated with any increase in morbidity or mortality in most patients and therefore treatment is usually not indicated unless patients are less than five years old, or about to undergo urological procedures. Recent Imaging Studies: CT pelvis FINDINGS: PELVIS: There is multiloculated large fluid collection with air bubbles tracking within the deep muscle of the medial aspect of the RIGHT thigh extending from the level of the RIGHT hip and between the gluteal muscle and adductor muscles dissecting deep into the level of mid thigh. This is highly suspicious for an abscess/myositis. It extends superiorly to the hip joints. It measure roughly 10.9 x 8.5 cm axially and about 6 25 cm craniocaudally. There is Zabala catheter in the bladder. There is a trace amount of free fluid in the pelvis. There is thickening of the rectal wall posteriorly, cannot rule out perirectal abscess or mass. The area involved roughly measures 1.3 x 2 cm. OSSEOUS STRUCTURES: There are degenerative changes of the hip joints. Degenerative changes of the SI joints. There is heavy vascular calcifications. Assessment/Plan ID Impression: 47-year-old M with previous history of diabetes, severe alcoholism, severe depression admitted with MSSA sepsis/bacteremia in the setting of multiple abscess (b/l thighs and possibly perirectal). 1. Loculated complex fluid mass with air along the deep and posterior medial aspect of the RIGHT thigh/myositis/? femur OM; s/p I&D on 11/29; cx + S.aureus ( sensitivity pnd). 2. Multiple lesions in the lung highly suggestive of septic emboli; r/o infective endocarditis; 2D Echo results reviewed; awaits MAAME 3. Abscess left lower posterior thigh s/p I&D previous day 4. Leukemoid reaction; WBC contrending down Suggestion: 1. F/U final culture results; broad abx coverage with iv Vancomycin/Zosyn pending above; can d/c iv vancomycin; pending eval perirectal abscess continue iv Zosyn or Unasyn (dosed per kidney fct). 2. MAAME eval vegetations. 3. F/U pulm recom; sx; urology; GI and ortho recom. 4. Trend CBC, BMP. Repeat BC 12/01; BC from 11/30 pnd.
[2017-12-01] VITALS (11 sets, daily range): BP systolic 86–104; BP diastolic 00–60
--- NOTE | 2017-12-01 05:09 | PN- General Surgery ---
Mary Espinal 12/01/17 0507: Subjective Subjective: patient awake on vent, opens eyes still on minerva for hypotension with SBP in the 90's [address] right thigh by IR drained @15cc overnight Review of Systems: awake on vent Objective Vital Signs and I&Os Vital Signs Date Time Temp Pulse Resp B/P B/P Pulse O2 O2 Flow FiO2 Mean Ox Delivery Rate 12/01 0254 28 12/01 0028 28 12/01 0000 99.5 109 23 92/60 12/01 0000 98 Ventilator 28% 12/01 0000 99.5 109 23 92/60 99 Ventilator 28% 11/30 2251 101.5 11/30 2208 28 11/30 2200 103.1 119 24 11/30 2148 103.1 12/01 1999 99.3 122 24 11/30 99 Ventilator 28% 11/30 1941 28 11/30 1715 28 11/30 1600 98.9 114 25 104/62 98 Ventilator 28% 11/30 1600 99 Ventilator 28% 11/30 1427 11/30 1200 97 Ventilator 28% 11/30 1139 11/30 0837 11/30 0800 99.6 105 23 100/60 99 Ventilator 28% 11/30 0800 98 Ventilator 28% 11/30 0612 11/30 0600 100.0 108 20 95/54 Intake & Output 12/01 0800 12/01 0000 11/30 1600 11/30 0800 11/30 0000 11/29 1600 Intake Total 1484 1651.3 1656 1404 1397 Output Total 860 1090 898 655 700 Balance 624 561.3 758 749 697 Intake, IV 1484 1651.3 1656 1404 1397 Intake, Oral 0 0 Number 0 1 Bowel Movements Output, Chest 35 Tube Drainage Output, 10 48 30 Drainage Output, 75 125 75 100 Gastric Drainage Output, Urine 850 980 725 550 600 Physical Exam: Intubated and arousable S/P I+D left thigh -CDI right thigh with drain placed through IR with minimal output. bilateral lower extremities -soft without edema Assessment/Plan Assessment/Plan Right thigh deep abscess with drain placed per IR, awaiting further instruction and input drosylvia Delong S/P Left posterior thigh ulceration/abscess Core Measures Venous Thromboembolism VTE Risk Factors Acute Medical Illness No Mechanical VTE Prophylaxis d/t N/A MechProphylax Ordered No VTE Pharm Prophylaxis d/t Supratherapeutic INR Geovany Delong DO 12/01/17 1525: Attending MD Review Statement Attending Statement Attending MD Statement: examined this patient, discuss w/resident/PA/REVENUE DIRECTOR, agreed w/resident/PA/REVENUE DIRECTOR, discussed with family, reviewed EMR data (avail), discussed w/ nursing, reviewed images Attending Assessment/Plan: Patient seen and examined, this morning. Events over the past 48 hrs noted. Patient with a large collection in deep medial/posterior right thigh. ? involvement of the pelvic bones. Clinically improved s/p IR drainage. WBC decreasing, continues to spike fevers. All Cx with Staph. Patient may need a washout of the deep muscles of the thigh and possible pelvis. Case was discussed with ortho prior to having me evaluate and they did not think there was any ortho intervention needed. Given overall status and the extent of the deep infection with possiblity of a large incision/debridement needed patient may benefit from transfer to a tertiary care facility. May need ortho involvement due to the extent of the soft tissue disease and the depth. D/W with patient's family, Surgery PAs, ID, and ICU staff.
[2017-12-01 05:17] LABS: ABSOLUTE BASOPHIL COUNT 0 /CUMM (0.0-0.2); ABSOLUTE EOSINOPHIL COUNT 0 /CUMM (0.0-0.7); ABSOLUTE GRANULOCYTE CT 18.9 /CUMM (1.4-6.5); ABSOLUTE LYMPH COUNT 1.9 /CUMM (1.2-3.4); ABSOLUTE MONOCYTE COUNT 0.7 /CUMM (0.10-0.60); BASOPHIL % 0.1 % (0.0-2.0); EOSINOPHIL % 0.2 % (0-5); GRANULOCYTE % 87.3 % (42.2-75.2); HEMATOCRIT 26.2 % (42-52); MEAN CORPUSCULAR HGB 26.8 PG (27.0-31.0); MEAN CORPUSCULAR VOLUME 81.1 FL (80.0-94.0); MEAN PLATELET VOLUME 10.4 FL (7.4-10.4); PLATELET COUNT 48 /CUMM (130-400); RBC DISTRIBUTION WIDTH 15.1 % (11.5-14.5); RED BLOOD CELL CT 3.23 /CUMM (4.70-6.10); WHITE BLOOD CELL COUNT 21.7 /CUMM (4.8-10.8)
--- NOTE | 2017-12-01 07:34 | PN- Resident CRCU ---
Subjective HPI/CRCU Issues: 1. Staph aureus Septic shock with multiple organ failure with Multiple sub cut abcess, PRob osteo of the hip with large abscess in the post thigh (S/p IR drainage), with a lesion in the post perirectal area lesion, ID, Surg, Urology and Cardio onboard, Ortho has been called and surg pa made aware 2. Diabetes with severe hyperosmolar state with mild ketosis as well in a gentleman with type 2 diabetes, improving 3. Multiple organ dysfunction including elevated INR, altered LFTs, electrolyte abnormality, with prob cirrhosis 4. ARF now creat stablizing a 5. THrombocytopenia, altered lfts, with prob cirrhosis with sepsis 6. Elevated cpk and ldh due to myonecrosis and sepsis 7. Multiple lesions in the lung highly suggestive of septic emboli probably from the lower abdominal infection 8. Small skin lesions could also be the nidus /Large abscess probably infected sebaceous cyst in the left lower posterior thigh s/p I and D 9. Improving Lethargy due to sepsis and hyperosmolar state no clinical evidence suggestive of active bacterial meningitis 10. So far no clinical evidence suggestive of intentional substance overdose 24 Hour Events: MAXIMUM TEMPERATURE 103, pulse 98-106 (sinus tachycardia), RR 21-25, BP 96/50 287/44, CVP 9 He was seen and examined today, he is sleeping, intubated Objective Vital Signs & I&O Last 8 Hrs of Vitals and I&O: Intake & Output 12/01 1600 Intake Total Output Total Balance Patient 198 lb Weight Exam General Appearance: alert, sedated, intubated Head: atraumatic, normal appearance Respiratory: decreased breath sounds, crackles Cardiovascular: regular rate/rhythm, normal peripheral pulses Gastrointestinal: normal bowel sounds, soft, non-tender Extremities: no edema Nutrition Nutrition: NPO Current Medications: Current Medications Sig/[place] Start time Last Medication Dose Route Stop Time Status Admin Acetaminophen 1,000 MG .STK-MED ONE 11/30 2146 DC IV 12/01 2147 Acetaminophen 1,000 MG Q6P PRN 11/28 2114 11/30 N/A 1 UNIT IV 2147 Fentanyl Citrate 25 MCG Q2 HRS NEEDED PRN 11/29 1230 AC 11/30 IV 1745 Insulin Human Regular 100 UNIT Q24H 11/285 12/01 Sodium Chloride 100 ML IV 0800 Lorazepam 0 Q1P PRN 11/28 1215 12/01 IV 0501 Norepinephrine 4 MG Q10H 11/29 0915 MS 11/29 Sodium Chloride 250 ML IV 0910 Pantoprazole Sodium 40 MG BID 11/29 0900 12/01 IV 0829 Phenylephrine HCl 40 MG Q15H 11/30 0345 12/01 Sodium Chloride 250 ML IV 0504 Piperacillin Sod/ 3.375 GM Q6H 11/28 1445 12/01 Tazobactam Sod IV 0828 Sodium Chloride 100 ML Potassium Chloride 10 MEQ ONCE ONE 12/01 0815 DC 12/01 IV 12/01 0816 0844 Potassium Chloride 20 MEQ Q13H 11/30 2100 AC 12/01 Dextrose/Water 1,000 ML IV 1100 Potassium Chloride 20 MEQ Q6H 11/30 0645 DC 11/30 Dextrose/Sodium 1,000 ML IV 1529 Chloride Vancomycin HCl 1,000 MG DAILY@1100 11/29 1100 DC 11/30 Sodium Chloride 250 ML IV 1021 Impression/Plan Impression/Problem List Impression: Impression: This is a 47-year-old gentleman with previous history of diabetes, severe alcoholism has been sober for 6 months, severe depression in the past not on any medication, patient has not been using any drugs for moderate, marijuana positive in his urine (apparently his sister smokes in the same room) now comes in with significant lethargy worsening overall performance status with severe pain in the hip area and in the right posterior abdomen with the following issues Patient became hemodynamically unstable 2/2 sepsis, TLC was obtained and he was started on Levophed and Neosynephrine, beside agressive IV hydration. His BP pressure improved, Levophed DC on 11/30/2016, he remained on Neosynephrine. Also On 11/28/2017 he started to have increase work of breathing, fast shallow breathing was noticed, he was unarousable to all stimuli, patient intubed on as a result of above. 1. Staph aureus Septic shock with multiple organ failure with Multiple sub cut abcess, PRob osteo of the hip with large abscess in the post thigh (S/p IR drainage), with a lesion in the post perirectal area lesion, ID, Surg, Urology and Cardio onboard, Ortho on board: * Blood culture x2 obtained on 11/28/2017 grews Staph. Aureus * Blood culture X2 repeated every day since admission on 11/29 (Also grews Staph aureus), 11/30 (Grews G+VE cocci in 1 bottle) and 12/01 * He is started on Broad spectrum antibiotics: Vancomycin and Zosyn * ID on board who recommend to * Improved white blood cell count, bandemia has resolved 2. Diabetes with severe hyperosmolar state with mild ketosis as well in a gentleman with type 2 diabetes, improving: * We continued insulin drip according to ICU protocol for nonketotic/ septic patient with aim blood sugar between 140-180mg/dl * Accucheck Q1 hour * In ICU his BS remained between 140-180mg/dl 3. Multiple organ dysfunction including elevated INR, altered LFTs, electrolyte abnormality, with prob cirrhosis: * As a result of sepsis patient developed coagulopathy his DIC panel at 2017: Showed elevated: PT 16.4, INR 1.5, APTT 45, fibrinogen activity 557, d- dimer 2038. On 12/01/2017: DIC panel showed: PT 14.4, INR 1.32, APTT 38, fibrinogen activity 518, d-dimer 1881 * Initially his LFT was abnormal but at December 01 it's normalized: AST 58, ALT 33, total bilirubin 1.2 * Patient had an episode of coffee-ground emesis on the day of admission he was seen by GI services started on IV Protonix with no more episodes 3. ARF now creat stablizing: * Creatinine at initial presentation of 2.3 which remains stabilized at 2017 creatinine 2.2 * We continued IV hydration however his IV fluids which from normal saline to D5W as the patient developed hypernatremia * Flush of free water through NG tube was started * Repeated lab in the afternoon of 12/01/2017 showed: 4. THrombocytopenia, altered lfts, with prob cirrhosis with sepsis: * Aim to treat underlying cause which is sepsis * As mentioned in #2 5. Elevated cpk and ldh due to myonecrosis and sepsis: * Broad-spectrum antibiotic continued * Per ID * 6. Multiple lesions in the lung highly suggestive of septic emboli probably from the lower abdominal infection: * [employer] involved in the care of the patient to obtain MAAME to rule out any valvular vegetation * Patient had a TTE which showed: 1. Hyperdynamic left ventricle with EF of 70%. 2. Trace mitral regurgitation. 3. No valvular vegetations noted. 4. atria of the heart appear to be externally compressed 5. Consider a MAAME is high suspicion of endocarditis. * Patient doesn't have history of IV drug abuse 7. Small skin lesions could also be the nidus /Large abscess probably infected sebaceous cyst in the left lower posterior thigh s/p I and D done by surgical team 8. Improving Lethargy due to sepsis and hyperosmolar state no clinical evidence suggestive of active bacterial meningitis: * Endocrinology on board, if continue to improve will switch to SC insulin 9: Hypernatremia: * Na level od 154, we started free water via NGT * Will check ICU lab bundle Q6 hrs 10. Tachycardia: * Tachycardia, sinus rhythm. Most likely secondary to sepsis and pain. NO Arrhythmias noted on telemetry monitors. * Still needing pressors, Levophed off, still on neosynephrine * Titrate pressors as tolerated 11. Alimentary: * Nothing by mouth for now given that the patient is a still hemodynamically unstable/ he is on Mikal-Synephrine * Will place nutritional consults once the patient is hemodynamically stable and off pressor * Will start to feed (Jevity) once patient becomes stable DVT ppx: ALPS Full code Problem List: 1. Hyperglycemia 2. Sepsis 3. Leukocytosis 4. Pubic ramus fracture 5. Septic embolism 6. Abdominal abscess Pain Ratin Tomorrow's Labs & Rationales: ICU lab bundle, cbc, coag Plan DVT/Prophylaxis: mechanical
--- NOTE | 2017-12-01 07:50 | CT SCAN REPORT ---
CLINICAL HISTORY: This patient is a 47 years old male with to right thigh abscesses. Drainage catheters are requested by Dr. Alexandre an emergent setting in this critically ill patient in septic shock. PROCEDURES: 1. Limited CT of the pelvis and right thigh. 2. Placement of a 10 Fr locking all-purpose drainage catheter into the posteromedial thigh collection under CT-guidance. 2. Placement of a 12 Fr locking all-purpose drainage catheter into the posterolateral thigh collection under CT-guidance. PHYSICIANS: Dr. Reva Terry (attending) MONITORING: The procedure was performed with local anesthesia and continuous blood pressure, pulse oximetry as well as heartrate monitoring was performed by an independent registered nurse. MEDICATIONS: Lidocaine 1%, 10 mL, SQ. The patient is already covered with vancomycin and Zosyn. COMPLICATIONS: None ESTIMATED BLOOD LOSS: <5 mL SPECIMENS: Medial thigh collection aspirate, lateral thigh collection aspirate IMPLANT: 10 Portuguese Williamson-Stevens catheter in the medial collection, 12 Portuguese Williamson-Stevens catheter in the lateral collection CONTRAST: None TOTAL DLP: 745.41 mGy-cm SITE MARKING: As part of the preprocedure verification policy, a site marking procedure was initiated. Due to the nature the procedure, the insertion site could not be predetermined thus invoking the policy of exemption to site laterality and marking. Insertion site marking was performed in the procedure room in conjunction with imaging confirmation. PROCEDURE NOTE: Informed consent was obtained from the patient's mother, Marianne, prior to the procedure. During this process, the procedure and potential alternatives were explained along with the intended outcome and benefits. The risks of the procedure, including the possibility of an unsuccessful procedure, as well as the risk of not doing the procedure, were discussed. The patient's mother was given the opportunity to ask questions regarding the procedure and appeared competent to make decisions. A signed consent form documenting this discussion was placed in the medical record. A time-out procedure was performed. The patient was placed in the prone position on the CT table. A limited CT of the pelvis and right thigh was performed to localize the collection and choose appropriate needle access entry point and trajectory. The right upper thigh was prepped and draped in usual sterile fashion. Elements of maximal sterile barrier technique followed including use of cap, mask, sterile gown, sterile gloves, a sterile full body drape and hand hygiene. Also followed skin preparation with 2% chlorhexidine for cutaneous antisepsis, and sterile ultrasound preparation with sterile gel and probe cover when applicable. Medial collection: The skin and subcutaneous tissues were anesthetized with lidocaine. Under CT-guidance, a 5-Fr Yueh catheter was advanced into the fluid collection. Purulent fluid was aspirated. A 0.035 in Amplatz super stiff wire was advanced through the needle and coiled in the fluid collection. The needle was removed and exchanged for serial fascial dilators followed by a 10-Fr locking all-purpose catheter. Catheter position within the fluid collection was confirmed by CT evaluation. The wire was removed from the catheter and the tip was coiled within the fluid collection, again confirmed by CT evaluation. The drain was sutured to skin with 2-0 nylon suture. Lateral collection: The skin and subcutaneous tissues were anesthetized with lidocaine. Under CT-guidance, a 5-Fr Yueh catheter was advanced into the fluid collection. Purulent fluid was aspirated. A 0.035 in Amplatz super stiff wire was advanced through the needle and coiled in the fluid collection. The needle was removed and exchanged for serial fascial dilators followed by a 12-Fr locking all-purpose catheter. Catheter position within the fluid collection was confirmed by CT evaluation. The wire was removed from the catheter and the tip was coiled within the fluid collection, again confirmed by CT evaluation. The drain was sutured to skin with 2-0 nylon suture. Samples were sent for microbiology. The patient tolerated the procedure well. FINDINGS: 1. 2 fluid collections located within the upper right thigh posteriorly. 2. Successful placement of a 10-Fr locking all-purpose drainage catheter into the fluid collection. 3. Successful placement of a 12-Fr locking all-purpose drainage catheter into the fluid collection. IMPRESSION: Successful drainage of a to right upper thigh fluid collections with placement of drainage catheters. PLAN: 1. The patient was unchanged in hemodynamics after the procedure and was transferred back to the ICU. 2. The tube should be open to external gravity drainage via drainage bag. 3. Tube should be flushed Q shift with 10 mL normal saline. Strict measurement of output should be tabulated every 24 hours, NOT including the flush volume.
--- NOTE | 2017-12-01 08:18 | PN- CRCU ---
Subjective HPI/Critical Care Issues: Continues to be febrile 103 t max last night Awake and at times confused Follows commands TLC line ok SIGNIFICANT DATA Creatinine 2.2 stabilizing BUN is elevated at 70 Sodium is still elevated 154 chloride 121 anion gap is normal lactic acid was normal magnesium is adequate calcium is still slightly low but albumin is low as well corrected is okay his last CPK was trending down LDH was 2000 his HIV was negative his hepatitis panel was unremarkable his A1c was elevated at 12 urine tox screen was unremarkable White count down to 21,000 hemoglobin 8.6 platelets down to 48 with 8% bands and white cells down from 15 upon admission INR was elevated at 1.5 down from 3.6 upon admission last ABG reviewed patient was slightly alkalotic is overbreathing the ventilator blood cultures continue to grow gram-positive cocci Chest x-ray reviewed no new abnormalities ET tube may be located high needs to be repositioned Objective Current Medications: Current Medications Sig/[place] Start time Last Medication Dose Route Stop Time Status Admin Acetaminophen 1,000 MG .STK-MED ONE 11/30 2146 DC IV 11/30 214 Acetaminophen 1,000 MG Q6P PRN 11/28 211 11/30 N/A 1 UNIT IV 2148 Fentanyl Citrate 25 MCG Q2 HRS NEEDED PRN 11/29 1230 11/30 IV 1745 Insulin Human Regular 100 UNIT Q24H 11/28 1215 11/30 Sodium Chloride 100 ML IV 1225 Lorazepam 0 Q1P PRN 11/28 1215 12/01 IV 0501 Norepinephrine 4 MG Q10H 11/29 0915 AR 11/29 Sodium Chloride 250 ML IV 0910 Pantoprazole Sodium 40 MG BID 11/29 0900 11/30 IV 2100 Phenylephrine HCl 40 MG Q15H 11/30 0345 12/01 Sodium Chloride 250 ML IV 0504 Piperacillin Sod/ 3.375 GM Q6H 11/28 1445 12/01 Tazobactam Sod IV 0233 Sodium Chloride 100 ML Potassium Chloride 10 MEQ ONCE ONE 12/01 0815 IV 12/01 0816 Potassium Chloride 20 MEQ Q13H 11/30 2100 11/30 Dextrose/Water 1,000 ML IV 2225 Potassium Chloride 20 MEQ Q6H 11/30 0645 AR 11/30 Dextrose/Sodium 1,000 ML IV 1529 Chloride Vancomycin HCl 1,000 MG DAILY@1100 11/29 1100 DC 11/30 Sodium Chloride 250 ML IV 1021 Vital Signs & I&O Last 24 Hrs of Vitals and I&O: Vital Signs Date Time Temp Pulse Resp B/P B/P Pulse O2 O2 Flow FiO2 Mean Ox Delivery Rate 12/01 0606 28 12/01 0600 98.4 108 25 92/51 12/01 0400 98.4 106 25 98/56 12/01 0400 100 Ventilator 28% 12/01 0254 28 12/01 0028 28 12/01 0000 99.5 109 23 92/60 12/01 0000 98 Ventilator 28% 12/01 0000 99.5 109 23 92/60 99 Ventilator 28% 11/30 2251 101.5 11/30 2208 28 11/30 2200 103.1 119 24 11/30 2148 103.1 12/01 1999 99.3 122 24 11/30 99 Ventilator 28% 11/30 1941 28 11/30 1715 28 11/30 1600 98.9 114 25 104/62 98 Ventilator 28% 11/30 1600 99 Ventilator 28% 11/30 1427 28 11/30 1200 97 Ventilator 28% 11/30 1139 28 11/30 0837 28 Intake & Output 12/01 1600 12/01 0800 12/01 0000 Intake Total 874.2 1484 Output Total 1190 860 Balance -315.8 624 Intake, IV 874.2 1484 Intake, Oral 0 0 Number 0 0 Bowel Movements Output, 15 10 Drainage Output, 125 Gastric Drainage Output, Urine 1050 850 Impression/Plan Impression/Plan Impression/Plan: HEENT: Normal EENT exam; pupils are myotic, EOMI, no nystagmus. HEAD is atraumatic. moist mucous membranes. Neck: Supple, no lymphadenopathy, Cardiovascular: Tachycardic, regular rhythm no murmurs rubs or gallops, normal JVP Respiratory: Chest nontender.There were no bony deformities, no asymmetry. No respiratory, intubated distress. . Breath sounds clear to auscultation bilaterally: NO W/R/R Abdomen: Soft, nontender nondistended, no appreciable organomegaly. Normal bowel sounds. No rebound/guarding, No appreciable enlargement of the abdominal aorta, No ascites. Mild tenderness in the right lower quadrant, ventral hernia Extremity: Trace edema, responsive to pain, ecchymosis noted to the right shoulder full range of motion of extremities, no obvious deformity normal and equal pulses bilaterally, Two drainage cath in the post thigh draining abscess Neuro: responsive to verbal and painful stimuli, There were no obvious focal neurologic abnormalities. Skin: Decub stage I skin changes, multiple small skin lesions in the lower extremity and upper extremity highly suggestive of small septic emboli, a draining infected sebaceous cyst looking lesion in the posterior left thigh still has some fluid CT scan of the head and neck was unremarkable no soft tissue mass cervical degeneration CT scan of the chest abdomen and pelvis reviewed bilateral pulmonary cavitary lesion highly suggestive of septic emboli differential diagnosis is broad, large mass with enlarged prostate. Last issues and the right is healed rectal. And soft tissue fullness involving the right gluteal region with cortical break in the right ischial tuberosity and the right inferior pubis. Patient has no history of trauma malignancy needs to be ruled out CT pelvis seen IMPRESSION This is a 47-year-old gentleman with previous history of diabetes, severe alcoholism has been sober for 6 months, severe depression in the past not on any medication, patient has not been using any drugs for moderate, marijuana positive in his urine (apparently his sister smokes in the same room) now comes in with significant lethargy worsening overall performance status with severe pain in the hip area and in the right posterior abdomen with the following issues * Staph aureus Septic shock with multiple organ failure with Multiple sub cut abcess, PRob osteo of the hip with large abscess in the post thigh (S/p IR drainage), with a lesion in the post perirectal area lesion, ID, Surg, Urology and Cardio onboard, Ortho has been called and surg pa made aware * Diabetes with severe hyperosmolar state with mild ketosis as well in a gentleman with type 2 diabetes, improving * Multiple organ dysfunction including elevated INR, altered LFTs, electrolyte abnormality, with prob cirrhosis * ARF now creat stablizing * THrombocytopenia, altered lfts, with prob cirrhosis with sepsis * Elevated cpk and ldh due to myonecrosis and sepsis * Multiple lesions in the lung highly suggestive of septic emboli probably from the lower abdominal infection * Small skin lesions could also be the nidus /Large abscess probably infected sebaceous cyst in the left lower posterior thigh s/p I and D * Improving Lethargy due to sepsis and hyperosmolar state no clinical evidence suggestive of active bacterial meningitis * So far no clinical evidence suggestive of intentional substance overdose RECOMMENDATION * Continue pressors and cont ivf, goal cvp is 8, Watch for pulm edema, change ivf to D5 water with potassium of 2 meq * ID to see and decide if any more invasive drainage is needed * Rpt CT pelvis and upper thigh to eval for abscess and ask gen surg to see him as he may need open drainage * Ask Gen surg to reeval to see if the needs to go to the OR for Perirectal area drainage or for exploration of thigh * Check cpk, INR, LDH again in am * Continue insulin drip * IV ppi * If no OR if he needs to be started on tube feeding * Continue urine output monitoring * Cardio to see and pt needs MAAME please inform Dr. Sanderson * Cont iv abx and id to decide on tapering on abx platelets are dropping and needs follow up * IV proton pump inhibitory * Venodyne boots (not on heparin due to low platelets) * IF he goes into pulm edema and if cvp is more than 12 then will challenge with lasix * ABG * Prognosis is very poor discussed with his family extensively yesterday Time spent 60 minutes,
--- NOTE | 2017-12-01 08:38 | RADIOLOGY REPORT ---
EXAMINATION: XR PORTABLE CHEST CLINICAL INFORMATION: Intubated. COMPARISON: Chest radiograph dated November 30, 2017. TECHNIQUE: Portable frontal view of the chest was obtained. FINDINGS: The right internal jugular vein catheter appears similar in position. The endotracheal tube terminates 6 cm above the jessica. There is an enteric tube overlying the stomach. The cardiomediastinal silhouette is similar in size and configuration when compared to the prior study. No focal consolidation to indicate pneumonia. There is blunting of the right costophrenic angle, which may represent a small pleural effusion. No pneumothorax. IMPRESSION: 1. Endotracheal tube terminates 6 cm above the jessica. 2. No definite pneumonia. 3. Probable small right pleural effusion.
--- NOTE | 2017-12-01 09:21 | PN- Diabetes ---
Assessment/Plan Diabetes Assessment: 47 y/o male hx of diabetes type 2 on metformin in the past, presented with unresponsiveness. In ER, he was found to have glucose level of over 700 along with acute renal insufficency and mild ketosis. Imaging studies revealed an abscess in his left thigh, a mass in the right ischiorectal fossa and multiple thick-walled bilateral cavitary lesions in his lung. Blood culture was positive for Grams positive cocci in clusters. He underwent the draininage of the right ischorectal fossa abscess. His HbA1c was 12.4%. He remains intubated. Now he is still on one pressor. Insulin drip has been at 1.5 units per hour. His FSGs were between 140 and 160. Sodium was 154 this morning. IVF was changed to D5 w with KCL at 75 ml/hour. Plan: continue the insulin drip for now; consider adding free water via OJ tube; monitor FSG every one hour; the goal of glucose level is between 140 and 180. monitor electrolytes every 6-8 hours. will follow. Subjective Subjective: He remains intubated. Objective Last 24 Hrs of Vital Signs/I&O Vital Signs Date Time Temp Pulse Resp B/P B/P Pulse O2 O2 Flow FiO2 Mean Ox Delivery Rate 12/01 0815 12/01 0606 12/01 0600 98.4 108 25 92/51 12/01 0400 98.4 106 25 98/56 12/01 0400 100 Ventilator 28% 12/01 0254 12/01 0028 28 12/01 0000 99.5 109 23 92/60 12/01 0000 98 Ventilator 28% 12/01 0000 99.5 109 23 92/60 99 Ventilator 28% 11/30 2251 101.5 11/30 2208 11/30 2200 103.1 119 24 96/58 11/30 2148 103.1 12/01 1999 99.3 122 24 9658 12/01 1999 99 Ventilator 28% 11/30 1941 11/30 1715 11/30 1600 98.9 114 25 104/62 98 Ventilator 28% 11/30 1600 99 Ventilator 28% 11/30 1427 11/30 1200 97 Ventilator 28% 11/30 1139 28 Intake & Output 12/01 1600 12/01 0800 12/01 0000 Intake Total 874.2 1484 Output Total 1190 860 Balance -315.8 624 Intake, IV 874.2 1484 Intake, Oral 0 0 Number 0 0 Bowel Movements Output, 15 10 Drainage Output, 125 Gastric Drainage Output, Urine 1050 850 Findings Pertinent Lab/Rl Results: Laboratory Tests 12/01 12/01 11/30 0888 7283 1744 Chemistry Sodium (137 - 145 mmol/L) 154 H 152 H Potassium (3.5 - 5.1 mmol/L) 3.9 Chloride (98 - 107 mmol/L) 121 H Carbon Dioxide (22 - 30 mmol/L) 21 L Anion Gap (5 - 16) 12 BUN (9 - 20 mg/dL) 70 H Creatinine (0.7 - 1.2 mg/dL) 2.2 H Estimated GFR (>60 ml/min) 32 L Glucose (65 - 99 mg/dL) 118 H Calcium (8.4 - 10.2 mg/dL) 6.9 L Phosphorus (2.5 - 4.5 mg/dL) 4.3 Magnesium (1.6 - 2.3 mg/dL) 2.4 H Total Bilirubin (0.2 - 1.3 mg/dL) 1.2 AST (17 - 59 U/L) 58 ALT (21 - 72 U/L) 33 Albumin (3.5 - 5.0 g/dL) 1.5 L Coagulation PT Pending INR Pending APTT Pending Fibrinogen Activity Pending D-Dimer High Sensitivty Pending Hematology CBC w Diff MAN DIFF ORDERED WBC (4.8 - 10.8 /CUMM) 21.7 H RBC (4.70 - 6.10 /CUMM) 3.23 L Hgb (14.0 - 18.0 G/DL) 8.6 L Hct (42 - 52 %) 26.2 L MCV (80.0 - 94.0 FL) 81.1 MCH (27.0 - 31.0 PG) 26.8 L MCHC (33.0 - 37.0 G/DL) 33.0 RDW (11.5 - 14.5 %) 15.1 H Plt Count (130 - 400 /CUMM) 48 L MPV (7.4 - 10.4 FL) 10.4 Gran % (42.2 - 75.2 %) 87.3 H Lymphocytes % (20.5 - 51.1 %) 9.0 L Monocytes % (1.7 - 9.3 %) 3.4 Eosinophils % (0 - 5 %) 0.2 Basophils % (0.0 - 2.0 %) 0.1 Absolute Granulocytes (1.4 - 6.5 /CUMM) 18.9 H Segmented Neutrophils (42.2 - 75.2 %) 94 H Absolute Lymphocytes (1.2 - 3.4 /CUMM) 1.9 Lymphocytes (20.5 - 51.1 %) 6 L Absolute Monocytes (0.10 - 0.60 /CUMM) 0.7 H Absolute Eosinophils (0.0 - 0.7 /CUMM) 0 Absolute Basophils (0.0 - 0.2 /CUMM) 0 Nucleated RBCs (0.0 - 0.0 /100WBC) 1 H Platelet Estimate (ADEQUATE) DECREASED Polychromasia 1+ Poikilocytosis 1+ Ovalocytes 1+ Miscellaneous Flow Cytometry Specimen Pending Other Body Source Fld Total RBCs Counted (%) 100 11/30 11/30 11/30 1449 1302 1100 Blood Gas pH (7.35 - 7.45 PH) 7.47 H pCO2 (35 - 45 TORR) 27 L pO2 (80 - 100 TORR) 115 H HCO3 (21 - 28 MEQ/L) 19 L ABG O2 Sat (Measured) (>96.0 %) 98.0 P-50 (Temp Corrected) N Carboxyhemoglobin (1.5 - 5.0 %) 0.5 L O2 Concentration % 28% Respiration Rate (BPM) 20 O2 Delivery Method VENT Vent Mode AC Expiratory Pressure (CMH2O/P) 5 Tidal Volume (CC) 550 Pressure Support (CMH2O/P) 0 Coagulation PT (9.4 - 12.5 SEC) 16.4 H INR (0.90 - 1.17) 1.50 H APTT (25 - 37 SEC) 45 H Fibrinogen Activity (200 - 393 MG/DL) Cancelled 557 H D-Dimer High Sensitivty (0 - 243 ng/ml) 2038 H Miscellaneous Phlebotomy Draw Site RIGHT RADIAL
[2017-12-01 09:30] LABS: PT 14.4 SEC (9.4-12.5); PTT 38 SEC (25-37)
--- NOTE | 2017-12-01 10:31 | Discharge Summary ---
Visit Information Visit Dates Admission Date: 11/28/17 Discharge Date: 12/02/2017 Hospital Course Course Attending Physician: Anaya Walsh MD Primary Care Physician: Emilio Kim DO Hospital Course: Mr. No is a 47 yo man with PMHx. of type 2 diabetes managed with metformin ( insulin kristine), previous alcohol abuse, history of hypertension brought in by ambulance from home for altered mental status. He was found by his mother shaking in his computer chair. He lives with her. She states over the past few weeks he's been complaining of worsening back pain and difficulty walking secondary to his back pain which is attributed to sciatica. His mother states he's only been taking ibuprofen for the pain on arrival his blood sugars greater than 500 he's not on insulin. Patient is lethargic however responsive to painful stimuli. His mother states otherwise been in his normal state of health he is a former alcoholic she states she does not believe he is on any drugs. No history of withdrawal seizures however he has had history of bad withdrawal symptoms in the past. Other history obtained by the mother and a family friend Apparently patient has not been drinking and not been using substances lately. He has been sick for few months with severe depression. However in the past week he has been having significant back pain and he has essentially become bedbound. Since then he has had overall deterioration of his performance status. Since he came into the emergency room he has been lethargic but slowly improving after fluid resuscitation. He was found to be septic febrile and now being admitted to the ICU. In the emergency room he did have a Zabala placed which is draining bloody urine. In the ICU he has had multiple small skin lesions noted suggestive of septic emboli-like picture, a large abscess in the left posterior thighs suggestive of infected sebaceous cyst draining pus. He also had a decubiti. Other review of symptoms could not be obtained Blood work reviewed shows significant hyperglycemia, renal insufficiency with creatinine of 2.3, anion gap of 29 which is improving, serum osmolality elevated due to hyperglycemia, lactic acidosis from 5.6-3.8 after resuscitation, hyperphosphatemia, low albumin, altered LFTs with high bilirubin and alkaline phosphatase, normal salicylic acid and acetaminophen level, urine tox screen positive for marijuana and otherwise unremarkable. White count 71,000 hemoglobin 13 g significant left shift platelet 199 INR was elevated 11% bands with some immature cells ABG reviewed showed severe metabolic acidosis Urinalysis showed bloody urine and many bacteria. CT scan of the head and neck was unremarkable no soft tissue mass cervical degeneration CT scan of the chest abdomen and pelvis reviewed bilateral pulmonary cavitary lesion highly suggestive of septic emboli differential diagnosis is broad, large mass with enlarged prostate. Last issues and the right is healed rectal. And soft tissue fullness involving the right gluteal region with cortical break in the right ischial tuberosity and the right inferior pubis. Impression: This is a 47-year-old gentleman with previous history of diabetes, severe alcoholism has been sober for 6 months, severe depression in the past not on any medication, patient has not been using any drugs for moderate, marijuana positive in his urine (apparently his sister smokes in the same room) now comes in with significant lethargy worsening overall performance status with severe pain in the hip area and in the right posterior abdomen with the following issues Patient became hemodynamically unstable 2/2 sepsis, TLC was obtained and he was started on Levophed and Neosynephrine, beside agressive IV hydration. His BP pressure improved, Levophed DC on 11/30/2016, he remained on Neosynephrine. Also On 11/28/2017 he started to have increase work of breathing, fast shallow breathing was noticed, he was unarousable to all stimuli, patient intubed on as a result of above. 1. Staph aureus Septic shock with multiple organ failure with Multiple sub cut abcess, PRob osteo of the hip with large abscess in the post thigh (S/p IR drainage), with a lesion in the post perirectal area lesion, ID, Surg, Urology and Cardio onboard, Ortho on board: * Blood culture x2 obtained on 11/28/2017 grews Staph. Aureus * Blood culture X2 repeated every day since admission on 11/29 (Also grews Staph aureus), 11/30 (Grews G+VE cocci in 1 bottle) and 12/01 is pending * He is started on Broad spectrum antibiotics: Vancomycin and Zosyn which switched to Cefazolin on 12/01/2017 2. Diabetes with severe hyperosmolar state with mild ketosis as well in a gentleman with type 2 diabetes, improving: * We continued insulin drip according to ICU protocol for nonketotic/ septic patient with aim blood sugar between 140-180mg/dl * Accucheck Q1 hour * In ICU his BS remained between 140-180mg/dl * On 12/02/2017 we switched to subcutaneous insulin every 4 hour and will start Levemir 15 units twice a day (this was discussed with bench molder apprentice) 3. Multiple organ dysfunction including elevated INR, altered LFTs, electrolyte abnormality, with prob cirrhosis: * As a result of sepsis patient developed coagulopathy his DIC panel at 2017: Showed elevated: PT 16.4, INR 1.5, APTT 45, fibrinogen activity 557, d- dimer 2038. On 12/01/2017: DIC panel showed: PT 14.4, INR 1.32, APTT 38, fibrinogen activity 518, d-dimer 1881 * Initially his LFT was abnormal but at December 01 it's normalized: AST 58, ALT 33, total bilirubin 1.2 * Patient had an episode of coffee-ground emesis on the day of admission he was seen by GI services started on IV Protonix with no more episodes of coffee ground emesis 3. ARF now creat stablizing: * Creatinine at initial presentation of 2.3 which remains stabilized at 2017 creatinine 2.2, goes up on 12/02/2017 to 2.4 * We continued IV hydration however his IV fluids which from normal saline to D5W as the patient developed hypernatremia * Flush of free water through NG tube was started for the hypernatremia with improvement of Na level to 150 4. THrombocytopenia, altered lfts, with prob cirrhosis with sepsis: * Aim to treat underlying cause which is sepsis * As mentioned in #2 5. Elevated cpk and ldh due to myonecrosis and sepsis: * Broad-spectrum antibiotic continued * CPK at 12/02/2017 improved to 227 U/L 6. Multiple lesions in the lung highly suggestive of septic emboli probably from the lower abdominal infection: * Systems Analyst involved in the care of the patient to obtain MAAME to rule out any valvular vegetation.. Not done at , please obtain one at [facility] * Patient had a TTE which showed: 1. Hyperdynamic left ventricle with EF of 70%. 2. Trace mitral regurgitation. 3. No valvular vegetations noted. 4. atria of the heart appear to be externally compressed 5. Consider a MAAME is high suspicion of endocarditis. * Patient doesn't have history of IV drug abuse 7. Small skin lesions could also be the nidus /Large abscess probably infected sebaceous cyst in the left lower posterior thigh s/p I and D done by surgical team 8. Improving Lethargy due to sepsis and hyperosmolar state no clinical evidence suggestive of active bacterial meningitis: * Endocrinology on board, if continue to improve will switch to SC insulin * Antibiotic coverage for sepsis * IV fluid 9: Hypernatremia: * Na level od 154, we started free water via NGT, improved to 150 * Will check ICU lab bundle Q6 hrs 10. Tachycardia: * Tachycardia, sinus rhythm. Most likely secondary to sepsis and pain. NO Arrhythmias noted on telemetry monitors. * Still needing pressors, Levophed off, still on neosynephrine * Titrate pressors as tolerated 11. New right basilar opacity and small pleural effusion. DVT ppx: ALPS Full code NEEDS SOURCE CONTROL (RT PELVIS AND HIP WITH PROB DEEP WASH OUT WITH ORTHO /SURG ). Patient is going to be transfer today to [place] for higher level of care. Accepting physician he is going to Medical ICU Complications: Non Allergies: Coded Allergies: NO KNOWN ALLERGIES (NONE 12/01/17) Disposition Summary Disposition Principal Diagnosis: 1. Staph aureus Septic shock with multiple organ failure with Multiple sub cut abcess, PRob osteo of the hip with large abscess in the post thigh (S/p IR drainage), with a lesion in the post perirectal area lesion, ID, Surg, Urology and Cardio onboard, Ortho has been called and surg pa made aware 2. Diabetes with severe hyperosmolar state with mild ketosis as well in a gentleman with type 2 diabetes, improving 3. Multiple organ dysfunction including elevated INR, altered LFTs, electrolyte abnormality, with prob cirrhosis 4. ARF now creat stablizing a 5. THrombocytopenia, altered lfts, with prob cirrhosis with sepsis 6. Elevated cpk and ldh due to myonecrosis and sepsis 7. Multiple lesions in the lung highly suggestive of septic emboli probably from the lower abdominal infection 8. Small skin lesions could also be the nidus /Large abscess probably infected sebaceous cyst in the left lower posterior thigh s/p I and D 9. Improving Lethargy due to sepsis and hyperosmolar state no clinical evidence suggestive of active bacterial meningitis 10. So far no clinical evidence suggestive of intentional substance overdose Additional Diagnosis: As above Discharge Disposition: other general hospital Discharge Instructions General Discharge Information Code Status: Full Code Patient's Diet: NPO Patient's Activity: As tolerated Follow-Up Instructions/Appts: -F/U with PCP after discharge -F/U with bench molder apprentice after discharge Medications at Discharge Discharge Medications: Start taking the following new medications: Cefazolin Sodium (Cefazolin Sodium) 1 GRAM VIAL 1,000 Milligram INTRAVEN IV EVERY 8 HOURS Qty = 1 No Refills Pantoprazole Sodium (Pantoprazole Sodium) 40 MG VIAL 40 Milligram INTRAVEN TWICE DAILY Qty = 1 No Refills Insulin Detemir (Levemir) 100 UNIT/ML VIAL 15 Units Inject into fatty tissue TWICE DAILY Qty = 1 No Refills Insulin Aspart (Novolog) 100 UNIT/ML VIAL 0 Units Inject into fatty tissue Every 4 hours Qty = 1 No Refills Phenylephrine HCl/0.9% NaCl/Pf (Phenylephrine-Ns 40 MG/250 Ml) 40 MG/250 ML (160 MCG/ML) PLAST..BAG 75 Microgram INTRAVEN EVERY 24 HOURS Qty = 1 No Refills Potassium Chloride in D5w (KCl 20 Meq in D5w Solution) 20 MEQ/L IV.SOLN 100 Milliliters INTRAVEN ML/HRS Qty = 1 No Refills Copies To: Baldomero REYNOLDS,Edilberto Espinoza
--- NOTE | 2017-12-01 11:48 | PN- Infect Dx ---
Subjective Subjective: T-max 103.1. His blood pressure has improved but he remains on Mikal-Synephrine. He does not offer any complaints. Objective Last 24 Hrs of Vital Signs/I&O Vital Signs Date Time Temp Pulse Resp B/P B/P Pulse O2 O2 Flow FiO2 Mean Ox Delivery Rate 12/01 1114 28 12/01 1000 113 22 94/52 12/01 0815 28 12/01 0800 98.3 102 20 98/50 12/01 0800 99 Ventilator 28% 12/01 0800 98.3 102 20 98/50 99 Ventilator 28% 12/01 0606 28 12/01 0600 98.4 108 25 92/51 12/01 0400 98.4 106 25 98/56 12/01 0400 100 Ventilator 28% 12/01 0254 28 12/01 0028 28 12/01 0000 99.5 109 23 92/60 12/01 0000 98 Ventilator 28% 12/01 0000 99.5 109 23 92/60 99 Ventilator 28% 11/30 2251 101.5 11/30 2208 28 11/30 2200 103.1 119 24 96/58 11/30 2148 103.1 11/30 2000 99.3 122 24 96/58 11/30 2000 99 Ventilator 28% 11/30 1941 28 11/30 1715 28 11/30 1600 98.9 114 25 104/62 98 Ventilator 28% 11/30 1600 99 Ventilator 28% 11/30 1427 28 11/30 1200 97 Ventilator 28% 11/30 1139 28 Intake & Output 12/01 1600 12/01 0800 12/01 0000 Intake Total 874.2 1484 Output Total 1190 860 Balance -315.8 624 Intake, IV 874.2 1484 Intake, Oral 0 0 Number 0 0 Bowel Movements Output, 15 10 Drainage Output, 125 Gastric Drainage Output, Urine 1050 850 Patient 198 lb Weight Physical Exam Other Physical Findings: He is awake and alert on the ventilator in no acute distress Neck right IJ triple lumen catheter with no inflammation at the site Lungs rhonchi bilaterally Heart regular rhythm with no murmur Abdomen is distended, nontender with positive bowel sounds Extremities 2 drains remain in the posterior thigh, with no surrounding inflammation, with the medial drain yielding 50 cc yesterday and 10 cc overnight and the lateral drain with 5 cc yesterday and 5 cc overnight; left posterior thigh necrotic wound with purulent drainage without surrounding inflammation Zabala catheter is in place Results Last 24 Hours of Lab Results: Laboratory Tests 12/01 12/01 11/30 0895 3707 1744 Chemistry Sodium (137 - 145 mmol/L) 154 H 152 H Potassium (3.5 - 5.1 mmol/L) 3.9 Chloride (98 - 107 mmol/L) 121 H Carbon Dioxide (22 - 30 mmol/L) 21 L Anion Gap (5 - 16) 12 BUN (9 - 20 mg/dL) 70 H Creatinine (0.7 - 1.2 mg/dL) 2.2 H Estimated GFR (>60 ml/min) 32 L Glucose (65 - 99 mg/dL) 118 H Calcium (8.4 - 10.2 mg/dL) 6.9 L Phosphorus (2.5 - 4.5 mg/dL) 4.3 Magnesium (1.6 - 2.3 mg/dL) 2.4 H Total Bilirubin (0.2 - 1.3 mg/dL) 1.2 AST (17 - 59 U/L) 58 ALT (21 - 72 U/L) 33 Albumin (3.5 - 5.0 g/dL) 1.5 L Coagulation PT (9.4 - 12.5 SEC) 14.4 H INR (0.90 - 1.17) 1.32 H APTT (25 - 37 SEC) 38 H Fibrinogen Activity (200 - 393 MG/DL) 518 H D-Dimer High Sensitivty (0 - 243 ng/ml) 1881 H Hematology CBC w Diff MAN DIFF ORDERED WBC (4.8 - 10.8 /CUMM) 21.7 H RBC (4.70 - 6.10 /CUMM) 3.23 L Hgb (14.0 - 18.0 G/DL) 8.6 L Hct (42 - 52 %) 26.2 L MCV (80.0 - 94.0 FL) 81.1 MCH (27.0 - 31.0 PG) 26.8 L MCHC (33.0 - 37.0 G/DL) 33.0 RDW (11.5 - 14.5 %) 15.1 H Plt Count (130 - 400 /CUMM) 48 L MPV (7.4 - 10.4 FL) 10.4 Gran % (42.2 - 75.2 %) 87.3 H Lymphocytes % (20.5 - 51.1 %) 9.0 L Monocytes % (1.7 - 9.3 %) 3.4 Eosinophils % (0 - 5 %) 0.2 Basophils % (0.0 - 2.0 %) 0.1 Absolute Granulocytes (1.4 - 6.5 /CUMM) 18.9 H Segmented Neutrophils (42.2 - 75.2 %) 94 H Absolute Lymphocytes (1.2 - 3.4 /CUMM) 1.9 Lymphocytes (20.5 - 51.1 %) 6 L Absolute Monocytes (0.10 - 0.60 /CUMM) 0.7 H Absolute Eosinophils (0.0 - 0.7 /CUMM) 0 Absolute Basophils (0.0 - 0.2 /CUMM) 0 Nucleated RBCs (0.0 - 0.0 /100WBC) 1 H Platelet Estimate (ADEQUATE) DECREASED Polychromasia 1+ Poikilocytosis 1+ Ovalocytes 1+ Miscellaneous Flow Cytometry Specimen Pending Other Body Source Fld Total RBCs Counted (%) 100 11/30 11/30 1449 1302 Coagulation PT (9.4 - 12.5 SEC) 16.4 H INR (0.90 - 1.17) 1.50 H APTT (25 - 37 SEC) 45 H Fibrinogen Activity (200 - 393 MG/DL) Cancelled 557 H D-Dimer High Sensitivty (0 - 243 ng/ml) 2038 H Last 24 Hours of Rl Results: Blood cultures November 30 1 bottle positive for gram-positive cocci in clusters Sputum culture November 30 positive for Staph aureus and yeast Right thigh abscess superficial cultures November 28 positive for Staph aureus sensitive to Oxacillin, with one culture also positive for Group B strep Right thigh abscess deep cultures, obtained by IR, positive for Staph aureus sensitive to Oxacillin Recent Imaging Studies: Chest x-ray December 01 negative Assessment/Plan ID Impression: Staph aureus sepsis, presumably secondary to the right pelvic/lower extremity abscesses, status post drainage by IR 2 days ago, with persistent fevers but with decreasing white blood cell count on Zosyn. Have discussed with IR, who feels that repeat imaging can be done once his drainage has decreased to less than 15 cc today from each drain. Have also discussed with Surgery, who has no plans for any surgical intervention at this time. His left thigh lesion is likely secondary to seeding from the bacteremia, with no evidence of any abscess on CT scan. The perirectal process was reviewed with IR and is of unclear significance. His positive sputum culture likely reflects pulmonary infection, with cavitary lesions noted on the CT of the chest, either representing septic pulmonary emboli, in which case endocarditis would need to be implicated, or seeding of the lungs from the bacteremia. The positive urine culture most likely represents seeding from the bacteremia. Suggestion: 1. Would maintain drainage catheters and continue flushing every shift 2. Would pursue a MAAME 3. Follow-up blood cultures from today and repeat if they turn positive 4. Eventual follow-up CT of the pelvis/lower extremities when his drainage has decreased 5. Discontinue Zosyn 6. Begin Cefazolin 1 g IV every 8 hours
--- NOTE | 2017-12-01 17:01 | RADIOLOGY REPORT ---
EXAMINATION: XR PORTABLE CHEST CLINICAL INFORMATION: Advancement of tube, decreased left breath sounds COMPARISON: Chest x-ray from earlier today TECHNIQUE: Portable frontal view of the chest was obtained. FINDINGS: Endotracheal tube tip lies approximately 4 cm above the jessica. Enteric tube appears to course into the stomach. Right IJ central line tip lies in the region of the upper SVC. Lung volumes are symmetric. No focal consolidation is seen. There is mild prominence of the perihilar interstitium. No evidence of pneumothorax, though assessment is limited with supine positioning. No significant pleural effusion. The cardiomediastinal contour is unremarkable. No acute osseous findings are seen. IMPRESSION: Endotracheal tube tip approximately 4 cm above the jessica. Mild prominence of the perihilar interstitium may reflect vascular congestion or airways disease.
[2017-12-02] VITALS: BP 92/50
[2017-12-02 02:00] VITALS: BP 106/56
[2017-12-02 04:00] VITALS: BP 113/66
[2017-12-02 05:11] LABS: ABSOLUTE BASOPHIL COUNT 0 /CUMM (0.0-0.2); ABSOLUTE EOSINOPHIL COUNT 0.1 /CUMM (0.0-0.7); ABSOLUTE GRANULOCYTE CT 19.5 /CUMM (1.4-6.5); ABSOLUTE LYMPH COUNT 2.7 /CUMM (1.2-3.4); ABSOLUTE MONOCYTE COUNT 0.7 /CUMM (0.10-0.60); BASOPHIL % 0.1 % (0.0-2.0); EOSINOPHIL % 0.4 % (0-5); GRANULOCYTE % 84.6 % (42.2-75.2); HEMATOCRIT 24.8 % (42-52); MEAN CORPUSCULAR HGB 26.4 PG (27.0-31.0); MEAN CORPUSCULAR HGB CONC 32.9 G/DL (33.0-37.0); MEAN CORPUSCULAR VOLUME 80.3 FL (80.0-94.0); MEAN PLATELET VOLUME 11.8 FL (7.4-10.4); RED BLOOD CELL CT 3.09 /CUMM (4.70-6.10)
[2017-12-02 05:17] LABS: PT 14.4 SEC (9.4-12.5); PTT 41 SEC (25-37)
[2017-12-02 05:19] LABS: PLATELET COUNT 84 /CUMM (130-400)
[2017-12-02 06:00] VITALS: BP 97/56
--- NOTE | 2017-12-02 07:22 | PN- Resident CRCU ---
Subjective HPI/CRCU Issues: 1. Staph aureus Septic shock with multiple organ failure with Multiple sub cut abcess, PRob osteo of the hip with large abscess in the post thigh (S/p IR drainage), with a lesion in the post perirectal area lesion, ID, Surg, Urology and Cardio onboard, Ortho has been called and surg pa made aware 2. Diabetes with severe hyperosmolar state with mild ketosis as well in a gentleman with type 2 diabetes, improving 3. Multiple organ dysfunction including elevated INR, altered LFTs, electrolyte abnormality, with prob cirrhosis 4. ARF now creat stablizing a 5. THrombocytopenia, altered lfts, with prob cirrhosis with sepsis 6. Elevated cpk and ldh due to myonecrosis and sepsis 7. Multiple lesions in the lung highly suggestive of septic emboli probably from the lower abdominal infection 8. Small skin lesions could also be the nidus /Large abscess probably infected sebaceous cyst in the left lower posterior thigh s/p I and D 9. Improving Lethargy due to sepsis and hyperosmolar state no clinical evidence suggestive of active bacterial meningitis 10. So far no clinical evidence suggestive of intentional substance overdose 11. New right basilar opacity and small pleural effusion. 24 Hour Events: No evidence overnight Patient seen and examined, sedated, intubated, on Mikal-Synephrine, however,he is awake, alert, answering questions by nodding his head yes or no, denies any pain. Output from percutaneous drain tubes improved today: 15 mL from the medial tissue and 5 mL from the lateral Objective Vital Signs & I&O Last 8 Hrs of Vitals and I&O: Tmax 99.8, sinus tachycardia 102-107, RR 27-28, BP 97/56 mmHg Vent setting: Before meals mode, 20, 550, 25, 5 Exam General Appearance: alert, awake, sedated, intubated Head: atraumatic, normal appearance Respiratory: rhonchi Cardiovascular: regular rate/rhythm, normal peripheral pulses Gastrointestinal: normal bowel sounds, soft, non-tender Extremities: no edema Nutrition Nutrition: NPO Current Medications: Current Medications Sig/[place] Start time Last Medication Dose Route Stop Time Status Admin Acetaminophen 1,000 MG .STK-MED ONE 12/01 1315 DC IV 12/01 1316 Acetaminophen 1,000 MG Q6P PRN 11/28 2114 AC 12/01 N/A 1 UNIT IV 1319 Cefazolin Sodium 1,000 MG IQ8 12/01 1600 AC 12/02 IV 0739 Fentanyl Citrate 25 MCG Q2 HRS NEEDED PRN 11/29 1230 AC 12/01 IV 2017 Insulin Aspart 0 Q4 12/02 1000 AC SC Insulin Detemir 15 UNITS BID 12/02 0900 AC 12/02 SC 0843 Insulin Human Regular 100 UNIT Q24H 11/28 1215 DC 12/01 Sodium Chloride 100 ML IV 0800 Lactated Ringer's 500 ML BOLUS ONE 12/01 1630 DC 12/01 IV 12/01 1631 1644 Lorazepam 0 Q1P PRN 11/28 1215 AC 12/01 IV 0501 Pantoprazole Sodium 40 MG BID 11/29 0900 AC 12/02 IV 0739 Phenylephrine HCl 40 MG Q15H 11/30 0345 AC 12/02 Sodium Chloride 250 ML IV 0126 Piperacillin Sod/ 3.375 GM Q6H 11/28 1445 DC 12/01 Tazobactam Sod IV 0828 Sodium Chloride 100 ML Potassium Chloride 20 MEQ Q13H 11/30 2100 AC 12/02 Dextrose/Water 1,000 ML IV 0455 CXR Findings: IMPRESSION: Endotracheal tube tip approximately 6 cm above the jessica. Developing right basilar opacity and small pleural effusion. Impression/Plan Impression/Problem List Impression: Impression: This is a 47-year-old gentleman with previous history of diabetes, severe alcoholism has been sober for 6 months, severe depression in the past not on any medication, patient has not been using any drugs for moderate, marijuana positive in his urine (apparently his sister smokes in the same room) now comes in with significant lethargy worsening overall performance status with severe pain in the hip area and in the right posterior abdomen with the following issues Patient became hemodynamically unstable 2/2 sepsis, TLC was obtained and he was started on Levophed and Neosynephrine, beside agressive IV hydration. His BP pressure improved, Levophed DC on 11/30/2016, he remained on Neosynephrine. Also On 11/28/2017 he started to have increase work of breathing, fast shallow breathing was noticed, he was unarousable to all stimuli, patient intubed on as a result of above. 1. Staph aureus Septic shock with multiple organ failure with Multiple sub cut abcess, PRob osteo of the hip with large abscess in the post thigh (S/p IR drainage), with a lesion in the post perirectal area lesion, ID, Surg, Urology and Cardio onboard, Ortho on board: * Blood culture x2 obtained on 11/28/2017 grews Staph. Aureus * Blood culture X2 repeated every day since admission on 11/29 (Also grews Staph aureus), 11/30 (Grews G+VE cocci in 1 bottle) and 12/01 cultures pending * He is initially started on Broad spectrum antibiotics: Vancomycin and Zosyn which was switched to cefazolin yesterday * ID on board who recommend to start cefazolin 1 g every 8 * Today white blood cell count increased to 23 from 21, bandemia has resolved 2. 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 Multiple organ dysfunction including elevated INR, altered LFTs, electrolyte abnormality, with prob cirrhosis: * As a result of sepsis patient developed coagulopathy his DIC panel at 2017: Showed elevated: PT 16.4, INR 1.5, APTT 45, fibrinogen activity 557, d- dimer 2038. On 12/01/2017: DIC panel showed: PT 14.4, INR 1.32, APTT 38, fibrinogen activity 518, d-dimer 1881 * Initially his LFT was abnormal but at December 01 it's normalized: AST 58, ALT 33, total bilirubin 1.2 * Patient had an episode of coffee-ground emesis on the day of admission he was seen by GI services started on IV Protonix with no more episodes 3. ARF now creat stablizing: * Creatinine at initial presentation of 2.3 which remains stabilized at 2017 creatinine 2.2 * We continued IV hydration however his IV fluids which from normal saline to D5W as the patient developed hypernatremia * Flush of free water through NG tube was started * Repeated lab in the afternoon of 12/01/2017 showed: 4. THrombocytopenia, altered lfts, with prob cirrhosis with sepsis: * Aim to treat underlying cause which is sepsis * As mentioned in #2 5. Elevated cpk and ldh due to myonecrosis and sepsis: * Broad-spectrum antibiotic continued * Per ID * 6. Multiple lesions in the lung highly suggestive of septic emboli probably from the lower abdominal infection: * [employer] involved in the care of the patient to obtain MAAME to rule out any valvular vegetation * Patient had a TTE which showed: 1. Hyperdynamic left ventricle with EF of 70%. 2. Trace mitral regurgitation. 3. No valvular vegetations noted. 4. atria of the heart appear to be externally compressed 5. Consider a MAAME is high suspicion of endocarditis. * Patient doesn't have history of IV drug abuse 7. Small skin lesions could also be the nidus /Large abscess probably infected sebaceous cyst in the left lower posterior thigh s/p I and D done by surgical team 8. Improving Lethargy due to sepsis and hyperosmolar state no clinical evidence suggestive of active bacterial meningitis: * Endocrinology on board, if continue to improve will switch to SC insulin 9: Hypernatremia: * Na level od 154, we started free water via NGT * Will check ICU lab bundle Q6 hrs 10. Tachycardia: * Tachycardia, sinus rhythm. Most likely secondary to sepsis and pain. NO Arrhythmias noted on telemetry monitors. * Still needing pressors, Levophed off, still on neosynephrine * Titrate pressors as tolerated 11. Alimentary: * Nothing by mouth for now given that the patient is a still hemodynamically unstable/ he is on Mikal-Synephrine * Will place nutritional consults once the patient is hemodynamically stable and off pressor * Will start to feed (Jevity) once patient becomes stable DVT ppx: ALPS Full code Problem List: 1. Abscess of right thigh 2. Abscess of left thigh 3. Pelvic abscess 4. Pubic ramus fracture 5. Fracture of ischial tuberosity 6. Leukocytosis 7. JAMAL (acute kidney injury) 8. Sepsis 9. Hyperglycemia Pain Ratin Tomorrow's Labs & Rationales: ICU lab bundle, CBC Plan DVT/Prophylaxis: mechanical Code Status: Full Code
[2017-12-02 08:00] VITALS: BP 105/60; BP 110/60
--- NOTE | 2017-12-02 08:00 | PN- General Surgery ---
See Addendum Subjective Subjective: pt in bed, still intubated but awake in restraints and on minerva. deneis pain by shaking his head. Objective Vital Signs and I&Os Vital Signs Date Time Temp Pulse Resp B/P B/P Pulse O2 O2 Flow FiO2 Mean Ox Delivery Rate 12/02 0600 106 27 97/56 12/02 0554 25 12/02 0400 99.5 107 28 113/66 12/02 0400 98 Ventilator 25% 12/02 0300 12/02 0200 103 26 106/56 12/02 0034 25 12/02 0000 98.8 107 27 92/50 12/02 0000 98.8 107 27 92/50 97 Ventilator 25% 12/02 0000 97 Ventilator 25% 12/01 2245 12/010 98.9 102 25 93/55 12/02 2031 98 Ventilator 25% 12/02 1999 98.9 95 22 104/58 12/01 1950 12/01 1719 94/53 12/01 1613 28 12/01 1600 99.2 95 22 12/01 1600 99.2 95 22 86/00 98 Ventilator 28% 12/01 1600 98 Ventilator 28% 12/01 1415 98.5 12/01 1400 98.5 104 22 91/49 12/01 1350 28 12/01 1319 102.0 12/01 1200 99.5 110 22 102/50 12/01 1200 99.5 110 22 102/50 99 Ventilator 28% 12/01 1200 99 Ventilator 28% 12/01 1114 28 12/01 1000 113 22 94/52 12/01 0815 28 12/01 0800 98.3 102 20 98/50 12/01 0800 99 Ventilator 28% 12/01 0800 98.3 102 20 98/50 99 Ventilator 28% Intake & Output 12/02 0800 12/02 0000 12/01 1600 12/01 0812/01 0000 11/30 1600 Intake Total 1850 1910 1389 874.2 1484 1651.3 Output Total 825 508 450 2372 860 1090 Balance 1025 1252 569 -315.8 624 561.3 Intake, IV 1050 1310 789 874.2 1484 1651.3 Intake, Oral 0 0 0 0 Intake, Other 600 Intake, Tube 800 600 Irrigant Number 1 1 0 0 1 Bowel Movements Output, Chest 35 Tube Drainage Output, 25 8 20 15 10 Drainage Output, 125 75 Gastric Drainage Output, Urine 800 254 458 2713 850 980 Patient 198 lb Weight Physical Exam: gen- awake and alert resp- on vent, course breath sounds bilaterally cardiac- rrr abd- ventral hernia, +BS, soft ext- 2 drains in right posterior thigh with purulent drainage after being flushed by nurses, no erythema, indurated. small I&D site on posterior left thigh with minimal dark bloodypurulent drainage Current Medications: Current Medications Sig/[place] Start time Last Medication Dose Route Stop Time Status Admin Acetaminophen 1,000 MG .STK-MED ONE 12/01 1315 DC IV 12/01 1316 Acetaminophen 1,000 MG Q6P PRN 11/28 2115 12/01 N/A 1 UNIT IV 1319 Cefazolin Sodium 1,000 MG IQ8 12/01 1600 12/02 IV 0739 Fentanyl Citrate 25 MCG Q2 HRS NEEDED PRN 11/29 1230 12/01 IV 2017 Insulin Human Regular 100 UNIT Q24H 11/28 1215 12/01 Sodium Chloride 100 ML IV 0800 Lactated Ringer's 500 ML BOLUS ONE 12/01 1630 DC 12/01 IV 12/01 1631 1644 Lorazepam 0 Q1P PRN 11/28 1215 12/01 IV 0501 Pantoprazole Sodium 40 MG BID 11/29 0900 12/02 IV 0739 Phenylephrine HCl 40 MG Q15H 11/30 0345 12/02 Sodium Chloride 250 ML IV 0126 Piperacillin Sod/ 3.375 GM Q6H 11/28 1445 MO 12/01 Tazobactam Sod IV 0828 Sodium Chloride 100 ML Potassium Chloride 10 MEQ ONCE ONE 12/01 0815 DC 12/01 IV 12/01 0816 0844 Potassium Chloride 20 MEQ Q13H 11/30 2100 12/02 Dextrose/Water 1,000 ML IV 0455 Results Last 48 Hours of Labs: Laboratory Tests 12/02 1337 Chemistry Sodium (137 - 145 mmol/L) 150 H 149 H 151 H Potassium (3.5 - 5.1 mmol/L) 4.1 4.0 4.1 Chloride (98 - 107 mmol/L) 119 H 120 H 120 H Carbon Dioxide (22 - 30 mmol/L) 19 L 20 L 19 L Anion Gap (5 - 16) 12 9 12 BUN (9 - 20 mg/dL) 73 H 73 H 74 H Creatinine (0.7 - 1.2 mg/dL) 2.4 H 2.2 H 2.1 H Estimated GFR (>60 ml/min) 29 L 32 L 34 L BUN/Creatinine Ratio (7 - 25 %) 33.2 H Glucose (65 - 99 mg/dL) 123 H 132 H Calcium (8.4 - 10.2 mg/dL) 6.8 L 6.9 L Phosphorus (2.5 - 4.5 mg/dL) 4.1 4.1 Magnesium (1.6 - 2.3 mg/dL) 2.2 2.3 Total Bilirubin (0.2 - 1.3 mg/dL) 1.0 1.2 AST (17 - 59 U/L) 44 56 ALT (21 - 72 U/L) 33 34 Albumin (3.5 - 5.0 g/dL) 1.6 L 1.5 L Coagulation PT (9.4 - 12.5 SEC) 14.4 H INR (0.90 - 1.17) 1.32 H APTT (25 - 37 SEC) 41 H Fibrinogen Activity (200 - 393 MG/DL) 518 H Hematology CBC w Diff MAN DIFF ORDERED WBC (4.8 - 10.8 /CUMM) 23.0 H RBC (4.70 - 6.10 /CUMM) 3.09 L Hgb (14.0 - 18.0 G/DL) 8.2 L Hct (42 - 52 %) 24.8 L MCV (80.0 - 94.0 FL) 80.3 MCH (27.0 - 31.0 PG) 26.4 L MCHC (33.0 - 37.0 G/DL) 32.9 L RDW (11.5 - 14.5 %) 15.0 H Plt Count (130 - 400 /CUMM) 84 L MPV (7.4 - 10.4 FL) 11.8 H Gran % (42.2 - 75.2 %) 84.6 H Lymphocytes % (20.5 - 51.1 %) 11.8 L Monocytes % (1.7 - 9.3 %) 3.1 Eosinophils % (0 - 5 %) 0.4 Basophils % (0.0 - 2.0 %) 0.1 Absolute Granulocytes (1.4 - 6.5 /CUMM) 19.5 H Segmented Neutrophils (42.2 - 75.2 %) 80 H Band Neutrophils (0.0 - 5.0 %) 1 Absolute Lymphocytes (1.2 - 3.4 /CUMM) 2.7 Lymphocytes (20.5 - 51.1 %) 15 L Monocytes (1.7 - 9.3 %) 3 Absolute Monocytes (0.10 - 0.60 /CUMM) 0.7 H Eosinophils (0 - 5.0 %) 1 Absolute Eosinophils (0.0 - 0.7 /CUMM) 0.1 Absolute Basophils (0.0 - 0.2 /CUMM) 0 Platelet Estimate (ADEQUATE) DECREASED Polychromasia 1+ Hypochromic-Microcytic 1+ Poikilocytosis 1+ Ovalocytes 1+ Other Body Source Fld Total RBCs Counted (%) 100 12/01 12/01 11/30 0845 0412 1744 Chemistry Sodium (137 - 145 mmol/L) 154 H 152 H Potassium (3.5 - 5.1 mmol/L) 3.9 Chloride (98 - 107 mmol/L) 121 H Carbon Dioxide (22 - 30 mmol/L) 21 L Anion Gap (5 - 16) 12 BUN (9 - 20 mg/dL) 70 H Creatinine (0.7 - 1.2 mg/dL) 2.2 H Estimated GFR (>60 ml/min) 32 L Glucose (65 - 99 mg/dL) 118 H Calcium (8.4 - 10.2 mg/dL) 6.9 L Phosphorus (2.5 - 4.5 mg/dL) 4.3 Magnesium (1.6 - 2.3 mg/dL) 2.4 H Total Bilirubin (0.2 - 1.3 mg/dL) 1.2 AST (17 - 59 U/L) 58 ALT (21 - 72 U/L) 33 Albumin (3.5 - 5.0 g/dL) 1.5 L Coagulation PT (9.4 - 12.5 SEC) 14.4 H INR (0.90 - 1.17) 1.32 H APTT (25 - 37 SEC) 38 H Fibrinogen Activity (200 - 393 MG/DL) 518 H D-Dimer High Sensitivty (0 - 243 ng/ml) 1881 H Hematology CBC w Diff MAN DIFF ORDERED WBC (4.8 - 10.8 /CUMM) 21.7 H RBC (4.70 - 6.10 /CUMM) 3.23 L Hgb (14.0 - 18.0 G/DL) 8.6 L Hct (42 - 52 %) 26.2 L MCV (80.0 - 94.0 FL) 81.1 MCH (27.0 - 31.0 PG) 26.8 L MCHC (33.0 - 37.0 G/DL) 33.0 RDW (11.5 - 14.5 %) 15.1 H Plt Count (130 - 400 /CUMM) 48 L MPV (7.4 - 10.4 FL) 10.4 Gran % (42.2 - 75.2 %) 87.3 H Lymphocytes % (20.5 - 51.1 %) 9.0 L Monocytes % (1.7 - 9.3 %) 3.4 Eosinophils % (0 - 5 %) 0.2 Basophils % (0.0 - 2.0 %) 0.1 Absolute Granulocytes (1.4 - 6.5 /CUMM) 18.9 H Segmented Neutrophils (42.2 - 75.2 %) 94 H Absolute Lymphocytes (1.2 - 3.4 /CUMM) 1.9 Lymphocytes (20.5 - 51.1 %) 6 L Absolute Monocytes (0.10 - 0.60 /CUMM) 0.7 H Absolute Eosinophils (0.0 - 0.7 /CUMM) 0 Absolute Basophils (0.0 - 0.2 /CUMM) 0 Nucleated RBCs (0.0 - 0.0 /100WBC) 1 H Platelet Estimate (ADEQUATE) DECREASED Polychromasia 1+ Poikilocytosis 1+ Ovalocytes 1+ Miscellaneous Flow Cytometry Specimen Pending Other Body Source Fld Total RBCs Counted (%) 100 11/30 11/30 11/30 1449 1302 1100 Blood Gas pH (7.35 - 7.45 PH) 7.47 H pCO2 (35 - 45 TORR) 27 L pO2 (80 - 100 TORR) 115 H HCO3 (21 - 28 MEQ/L) 19 L ABG O2 Sat (Measured) (>96.0 %) 98.0 P-50 (Temp Corrected) N Carboxyhemoglobin (1.5 - 5.0 %) 0.5 L O2 Concentration % 28% Respiration Rate (BPM) 20 O2 Delivery Method VENT Vent Mode AC Expiratory Pressure (CMH2O/P) 5 Tidal Volume (CC) 550 Pressure Support (CMH2O/P) 0 Coagulation PT (9.4 - 12.5 SEC) 16.4 H INR (0.90 - 1.17) 1.50 H APTT (25 - 37 SEC) 45 H Fibrinogen Activity (200 - 393 MG/DL) Cancelled 557 H D-Dimer High Sensitivty (0 - 243 ng/ml) 2038 H Miscellaneous Phlebotomy Draw Site RIGHT RADIAL Assessment/Plan Assessment/Plan 47yo diabetic male in septic shock on pressors and intubated with a large collection in deep medial/posterior right thigh. ?involvement of the pelvic bones SP IR drainage with [address], SP bedside I&D of left thigh superficial abscess by Dr delong. Cultures growing Staph. -keep drains in place until drainage stops, then will re-scan ideally with MRI if extubated Per Dr. Delong -Patient may need a washout with help from ortho team, with possiblity of a large incision/debridement needed patient may benefit from transfer to a tertiary care facility Core Measures Venous Thromboembolism VTE Risk Factors Acute Medical Illness No Mechanical VTE Prophylaxis d/t N/A MechProphylax Ordered No VTE Pharm Prophylaxis d/t Supratherapeutic INR
--- NOTE | 2017-12-02 08:15 | RADIOLOGY REPORT ---
EXAMINATION: XR PORTABLE CHEST CLINICAL INFORMATION: Advancement of tube, decreased left breath sounds COMPARISON: 12/01/2017 TECHNIQUE: Portable frontal view of the chest was obtained. FINDINGS: Endotracheal tube tip lies approximately 6 cm above the jessica. Enteric tube is not well seen distally due to study technique. Right IJ central line tip remains in the region of the upper SVC. There is interval development of mild right basilar opacity and small pleural effusion. The left lung remains essentially clear. No evidence of pneumothorax or overt pulmonary edema. The cardiomediastinal contour is unremarkable. No acute osseous findings are seen. IMPRESSION: Endotracheal tube tip approximately 6 cm above the jessica. Developing right basilar opacity and small pleural effusion.
--- NOTE | 2017-12-02 09:20 | PN- CRCU ---
Subjective HPI/Critical Care Issues: pt in bed, still intubated but awake in restraints and on minerva. denton pain by shaking his head COntinues to be febrile and bacteremic Objective Current Medications: Current Medications Sig/[place] Start time Last Medication Dose Route Stop Time Status Admin Acetaminophen 1,000 MG .STK-MED ONE 12/01 1315 DC IV 12/01 1316 Acetaminophen 1,000 MG Q6P PRN 11/28 2115 12/02 N/A 1 UNIT IV 0849 Cefazolin Sodium 1,000 MG IQ8 12/01 1600 AC 12/02 IV 0739 Fentanyl Citrate 25 MCG Q2 HRS NEEDED PRN 11/29 1230 AC 12/01 IV 2017 Insulin Aspart 0 Q4 12/02 1000 AC SC Insulin Detemir 15 UNITS BID 12/02 0900 AC 12/02 SC 0843 Insulin Human Regular 100 UNIT Q24H 11/28 1215 DC 12/01 Sodium Chloride 100 ML IV 0800 Lactated Ringer's 500 ML BOLUS ONE 12/01 1630 DC 12/01 IV 12/01 1631 1644 Lorazepam 0 Q1P PRN 11/28 1215 AC 12/01 IV 0501 Pantoprazole Sodium 40 MG BID 11/29 0900 AC 12/02 IV 0739 Phenylephrine HCl 40 MG Q15H 11/30 0345 AC 12/02 Sodium Chloride 250 ML IV 0126 Piperacillin Sod/ 3.375 GM Q6H 11/28 1445 DC 12/01 Tazobactam Sod IV 0828 Sodium Chloride 100 ML Potassium Chloride 20 MEQ Q13H 11/30 2100 AC 12/02 Dextrose/Water 1,000 ML IV 0455 Vital Signs & I&O Last 24 Hrs of Vitals and I&O: Vital Signs Date Time Temp Pulse Resp B/P B/P Pulse O2 O2 Flow FiO2 Mean Ox Delivery Rate 12/02 0849 101.8 12/02 0757 25 12/02 0600 106 27 97/56 12/02 0554 25 12/02 0400 99.5 107 28 113/66 12/02 0400 98 Ventilator 25% 12/02 0300 25 12/02 0200 103 26 106/56 12/02 0034 25 12/02 0000 98.8 107 27 92/50 05 0000 98.8 107 27 92/50 97 Ventilator 25% 12/02 0000 97 Ventilator 25% 12/01 2245 25 12/01 2200 98.9 102 25 93/55 12/01 2032 98 Ventilator 25% 12/02 1999 98.9 95 22 104/58 12/01 1950 25 12/01 1719 94/53 12/01 1613 28 12/01 1600 99.2 95 22 12/01 1600 99.2 95 22 86/00 98 Ventilator 28% 12/01 1600 98 Ventilator 28% 12/01 1415 98.5 12/01 1400 98.5 104 22 91/49 12/01 1350 28 12/01 1319 102.0 12/01 1200 99.5 110 22 102/50 12/01 1200 99.5 110 22 102/50 99 Ventilator 28% 12/01 1200 99 Ventilator 28% 12/01 1114 28 12/01 1000 113 22 94/52 Intake & Output 12/02 1600 12/02 0800 12/02 0000 Intake Total 1850 1910 Output Total 825 658 Balance 1025 1252 Intake, IV 1050 1310 Intake, Other 600 Intake, Tube 800 Irrigant Number 1 Bowel Movements Output, 25 8 Drainage Output, Urine 800 650 Laboratory Tests 12/02 12/01 12/01 0430 2004 1337 Chemistry Sodium (137 - 145 mmol/L) 150 H 149 H 151 H Potassium (3.5 - 5.1 mmol/L) 4.1 4.0 4.1 Chloride (98 - 107 mmol/L) 119 H 120 H 120 H Carbon Dioxide (22 - 30 mmol/L) 19 L 20 L 19 L Anion Gap (5 - 16) 12 9 12 BUN (9 - 20 mg/dL) 73 H 73 H 74 H Creatinine (0.7 - 1.2 mg/dL) 2.4 H 2.2 H 2.1 H Estimated GFR (>60 ml/min) 29 L 32 L 34 L BUN/Creatinine Ratio (7 - 25 %) 33.2 H Glucose (65 - 99 mg/dL) 123 H 132 H Calcium (8.4 - 10.2 mg/dL) 6.8 L 6.9 L Phosphorus (2.5 - 4.5 mg/dL) 4.1 4.1 Magnesium (1.6 - 2.3 mg/dL) 2.2 2.3 Total Bilirubin (0.2 - 1.3 mg/dL) 1.0 1.2 AST (17 - 59 U/L) 44 56 ALT (21 - 72 U/L) 33 34 Creatine Kinase (55 - 170 U/L) Pending Albumin (3.5 - 5.0 g/dL) 1.6 L 1.5 L Coagulation PT (9.4 - 12.5 SEC) 14.4 H INR (0.90 - 1.17) 1.32 H APTT (25 - 37 SEC) 41 H Fibrinogen Activity (200 - 393 MG/DL) 518 H Hematology CBC w Diff MAN DIFF ORDERED WBC (4.8 - 10.8 /CUMM) 23.0 H RBC (4.70 - 6.10 /CUMM) 3.09 L Hgb (14.0 - 18.0 G/DL) 8.2 L Hct (42 - 52 %) 24.8 L MCV (80.0 - 94.0 FL) 80.3 MCH (27.0 - 31.0 PG) 26.4 L MCHC (33.0 - 37.0 G/DL) 32.9 L RDW (11.5 - 14.5 %) 15.0 H Plt Count (130 - 400 /CUMM) 84 L MPV (7.4 - 10.4 FL) 11.8 H Gran % (42.2 - 75.2 %) 84.6 H Lymphocytes % (20.5 - 51.1 %) 11.8 L Monocytes % (1.7 - 9.3 %) 3.1 Eosinophils % (0 - 5 %) 0.4 Basophils % (0.0 - 2.0 %) 0.1 Absolute Granulocytes (1.4 - 6.5 /CUMM) 19.5 H Segmented Neutrophils (42.2 - 75.2 %) 80 H Band Neutrophils (0.0 - 5.0 %) 1 Absolute Lymphocytes (1.2 - 3.4 /CUMM) 2.7 Lymphocytes (20.5 - 51.1 %) 15 L Monocytes (1.7 - 9.3 %) 3 Absolute Monocytes (0.10 - 0.60 /CUMM) 0.7 H Eosinophils (0 - 5.0 %) 1 Absolute Eosinophils (0.0 - 0.7 /CUMM) 0.1 Absolute Basophils (0.0 - 0.2 /CUMM) 0 Platelet Estimate (ADEQUATE) DECREASED Polychromasia 1+ Hypochromic-Microcytic 1+ Poikilocytosis 1+ Ovalocytes 1+ Other Body Source Fld Total RBCs Counted (%) 100 12/01 12/01 11/30 9575 2174 3525 Chemistry Sodium (137 - 145 mmol/L) 154 H 152 H Potassium (3.5 - 5.1 mmol/L) 3.9 Chloride (98 - 107 mmol/L) 121 H Carbon Dioxide (22 - 30 mmol/L) 21 L Anion Gap (5 - 16) 12 BUN (9 - 20 mg/dL) 70 H Creatinine (0.7 - 1.2 mg/dL) 2.2 H Estimated GFR (>60 ml/min) 32 L Glucose (65 - 99 mg/dL) 118 H Calcium (8.4 - 10.2 mg/dL) 6.9 L Phosphorus (2.5 - 4.5 mg/dL) 4.3 Magnesium (1.6 - 2.3 mg/dL) 2.4 H Total Bilirubin (0.2 - 1.3 mg/dL) 1.2 AST (17 - 59 U/L) 58 ALT (21 - 72 U/L) 33 Albumin (3.5 - 5.0 g/dL) 1.5 L Coagulation PT (9.4 - 12.5 SEC) 14.4 H INR (0.90 - 1.17) 1.32 H APTT (25 - 37 SEC) 38 H Fibrinogen Activity (200 - 393 MG/DL) 518 H D-Dimer High Sensitivty (0 - 243 ng/ml) 1881 H Hematology CBC w Diff MAN DIFF ORDERED WBC (4.8 - 10.8 /CUMM) 21.7 H RBC (4.70 - 6.10 /CUMM) 3.23 L Hgb (14.0 - 18.0 G/DL) 8.6 L Hct (42 - 52 %) 26.2 L MCV (80.0 - 94.0 FL) 81.1 MCH (27.0 - 31.0 PG) 26.8 L MCHC (33.0 - 37.0 G/DL) 33.0 RDW (11.5 - 14.5 %) 15.1 H Plt Count (130 - 400 /CUMM) 48 L MPV (7.4 - 10.4 FL) 10.4 Gran % (42.2 - 75.2 %) 87.3 H Lymphocytes % (20.5 - 51.1 %) 9.0 L Monocytes % (1.7 - 9.3 %) 3.4 Eosinophils % (0 - 5 %) 0.2 Basophils % (0.0 - 2.0 %) 0.1 Absolute Granulocytes (1.4 - 6.5 /CUMM) 18.9 H Segmented Neutrophils (42.2 - 75.2 %) 94 H Absolute Lymphocytes (1.2 - 3.4 /CUMM) 1.9 Lymphocytes (20.5 - 51.1 %) 6 L Absolute Monocytes (0.10 - 0.60 /CUMM) 0.7 H Absolute Eosinophils (0.0 - 0.7 /CUMM) 0 Absolute Basophils (0.0 - 0.2 /CUMM) 0 Nucleated RBCs (0.0 - 0.0 /100WBC) 1 H Platelet Estimate (ADEQUATE) DECREASED Polychromasia 1+ Poikilocytosis 1+ Ovalocytes 1+ Miscellaneous Flow Cytometry Specimen Pending Other Body Source Fld Total RBCs Counted (%) 100 11/30 11/30 11/30 1449 1302 1100 Blood Gas pH (7.35 - 7.45 PH) 7.47 H pCO2 (35 - 45 TORR) 27 L pO2 (80 - 100 TORR) 115 H HCO3 (21 - 28 MEQ/L) 19 L ABG O2 Sat (Measured) (>96.0 %) 98.0 P-50 (Temp Corrected) N Carboxyhemoglobin (1.5 - 5.0 %) 0.5 L O2 Concentration % 28% Respiration Rate (BPM) 20 O2 Delivery Method VENT Vent Mode AC Expiratory Pressure (CMH2O/P) 5 Tidal Volume (CC) 550 Pressure Support (CMH2O/P) 0 Coagulation PT (9.4 - 12.5 SEC) 16.4 H INR (0.90 - 1.17) 1.50 H APTT (25 - 37 SEC) 45 H Fibrinogen Activity (200 - 393 MG/DL) Cancelled 557 H D-Dimer High Sensitivty (0 - 243 ng/ml) 2038 H Miscellaneous Phlebotomy Draw Site RIGHT RADIAL Microbiology Date/Time Procedure - Status Source Growth 12/01 0940 Blood Culture - RECD BLOOD 12/01 0925 Blood Culture - RECD BLOOD 11/30 1316 Blood Culture - RES BLOOD STAPH AUREUS 11/30 1302 Blood Culture - RES BLOOD STAPH AUREUS 11/30 1135 Respiratory Culture - RES LOWER RESP YEAST STAPH AUREUS 11/30 1135 Gram Stain - RES LOWER RESP 11/30 2019 Blood Culture - COMP BLOOD STAPH AUREUS 11/29 2014 Blood Culture - COMP BLOOD STAPH AUREUS 11/29 173 Gross Specimen Examination - COMP EXTREMITIE STAPH AUREUS 11/29 173 Gram Stain - COMP EXTREMITIE 11/29 173 Gross Specimen Examination - COMP EXTREMITIE STAPH AUREUS 11/29 1729 Gram Stain - COMP EXTREMITIE Impression/Plan Impression/Plan Impression/Plan: HEENT: Normal EENT exam; pupils are myotic, EOMI, no nystagmus. HEAD is atraumatic. moist mucous membranes. Neck: Supple, no lymphadenopathy, Cardiovascular: Tachycardic, regular rhythm no murmurs rubs or gallops, normal JVP Respiratory: Chest nontender.There were no bony deformities, no asymmetry. No respiratory, intubated distress. . Breath sounds clear to auscultation bilaterally: NO W/R/R Abdomen: Soft, nontender nondistended, no appreciable organomegaly. Normal bowel sounds. No rebound/guarding, No appreciable enlargement of the abdominal aorta, No ascites. Mild tenderness in the right lower quadrant, ventral hernia Extremity: Trace edema, responsive to pain, ecchymosis noted to the right shoulder full range of motion of extremities, no obvious deformity normal and equal pulses bilaterally, Two drainage cath in the post thigh draining abscess Neuro: responsive to verbal and painful stimuli, There were no obvious focal neurologic abnormalities. Skin: Decub stage I skin changes, multiple small skin lesions in the lower extremity and upper extremity highly suggestive of small septic emboli, a draining infected sebaceous cyst looking lesion in the posterior left thigh still has some fluid CT scan of the head and neck was unremarkable no soft tissue mass cervical degeneration CT scan of the chest abdomen and pelvis reviewed bilateral pulmonary cavitary lesion highly suggestive of septic emboli differential diagnosis is broad, large mass with enlarged prostate. Last issues and the right is healed rectal. And soft tissue fullness involving the right gluteal region with cortical break in the right ischial tuberosity and the right inferior pubis. Patient has no history of trauma malignancy needs to be ruled out CT pelvis seen IMPRESSION This is a 47-year-old gentleman with previous history of diabetes, severe alcoholism has been sober for 6 months, severe depression in the past not on any medication, patient has not been using any drugs for moderate, marijuana positive in his urine (apparently his sister smokes in the same room) now comes in with significant lethargy worsening overall performance status with severe pain in the hip area and in the right posterior abdomen with the following issues * MSSA Staph aureus Septic shock with multiple organ failure with Multiple sub cut abcess, with PRob osteo of the rt hip with large abscess in the post thigh ( S/p IR drainage), with a lesion in the post perirectal area lesion, ID, Surg, Urology, ortho and Cardio onboard, Persistantly febrile and needs source control especially in the rt pelvic hip deep thigh area * Diabetes with severe hyperosmolar state with mild ketosis as well in a gentleman with type 2 diabetes, improving * Hypernatremia now on d5 water * ImprovingMultiple organ dysfunction including elevated INR, altered LFTs, electrolyte abnormality, with prob cirrhosis * ARF now creat stablizing at 2.4 * Slowly improving THrombocytopenia, altered lfts, with prob cirrhosis with sepsis compounding * Improven Elevated cpk and ldh due to myonecrosis and sepsis * Multiple lesions in the lung highly suggestive of septic emboli probably from the lower abdominal infection and thrombophebitis * Metastatic Small skin lesions with a small abscess left lower posterior thigh s/p I and D * Improving Lethargy due to sepsis and hyperosmolar state no clinical evidence suggestive of active bacterial meningitis RECOMMENDATION * NEEDS SOURCE CONTROL (RT PELVIS AND HIP WITH PROB DEEP WASH OUT WITH ORTHO / SURG * Continue pressors and cont ivf, goal cvp is 8, cont D5 water with potassium of 20 meq * Continue insulin drip * IV ppi * Start tube feeding * Continue urine output monitoring * Needs MAAME * Cont iv abx per iD * Venodyne boots (not on heparin due to low platelets) * IF he goes into pulm edema and if cvp is more than 12 then will challenge with lasix * ABG * Prognosis is very poor discussed with his family extensively yesterday Discussed with the [place] ICU team and will take him to [facility] prob under my svc or sicu or trauma svc bed to be determined Time spent 60 minutes, Code Status: Full Code
--- NOTE | 2017-12-02 09:36 | PN- Diabetes ---
Assessment/Plan Diabetes Assessment: 47 y/o male hx of diabetes type 2 on metformin in the past, presented with unresponsiveness. In ER, he was found to have glucose level of over 700 along with acute renal insufficency and mild ketosis. Imaging studies revealed an abscess in his left thigh, a mass in the right ischiorectal fossa and multiple thick-walled bilateral cavitary lesions in his lung. Blood culture was positive for Grams positive cocci in clusters. He underwent the draininage of the right ischorectal fossa abscess. His HbA1c was 12.4%. He remains intubated. Currently he is still on one pressor. Insulin drip has been between 1.5 units per hour and 2 units per hour. His FSGs were between 110 and 130. IVF was changed to D5 w with KCL at 100 ml/hour. He is receiving free water 200 ml every 2 hours via OJ. Repeat sodium level this morning was 150. Plan: 1. stop insulin drip; start levemir 15 units twice a day. 2. continue the current IVF and free water boluses via OJ. 3. start Novolog coverage every 4 hours; detail see the inpatient DM order; 4. monitor FSGs and electrolytes. 5. add-on cortisol to am lab; will follow Please let me know if his IVF is changed or his glucose levels are not controlled. Inpatient Diabetes Orders Every 4 Hours: Bolus Insulin: Novolog < 80 mg/dl: no coverage 80-100 mg/dl: no coverage 101-120 mg/dl: 3 units 121-150 mg/dl: 3 units 151-200 mg/dl: 5 units 201-250 mg/dl: 7 units 251-300 mg/dl: 10 units 301-350 mg/dl: 13 units 351-400 mg/dl: 16 units > 400 mg/dl: 18 units Subjective Subjective: He remains intubated. Objective Last 24 Hrs of Vital Signs/I&O Vital Signs Date Time Temp Pulse Resp B/P B/P Pulse O2 O2 Flow FiO2 Mean Ox Delivery Rate 12/02 0849 101.8 12/02 0800 100.0 105 22 105/60 05 0800 98 Ventilator 25% 12/02 0800 100.0 105 22 110/60 98 Ventilator 25% 12/02 0757 25 12/02 0600 106 27 97/56 12/02 0554 25 05/30 0400 99.5 107 28 113/66 12/02 0400 98 Ventilator 25% 12/02 0300 25 12/02 0200 103 26 106/56 12/02 0034 25 12/02 0000 98.8 107 27 92/50 12/02 0000 98.8 107 27 92/50 97 Ventilator 25% 12/02 0000 97 Ventilator 25% 12/01 2245 25 12/01 2200 98.9 102 25 93/55 12/01 2032 98 Ventilator 25% 12/01 2000 98.9 95 22 104/58 12/01 1950 12/01 1719 94/53 12/01 1613 28 12/01 1600 99.2 95 22 12/01 1600 99.2 95 22 86/00 98 Ventilator 28% 12/01 1600 98 Ventilator 28% 12/01 1415 98.5 12/01 1400 98.5 104 22 91/49 12/01 1350 12/01 1319 102.0 12/01 1200 99.5 110 22 102/50 12/01 1200 99.5 110 22 102/50 99 Ventilator 28% 12/01 1200 99 Ventilator 28% 12/01 1114 12/01 1000 113 22 94/52 Intake & Output 12/02 1600 12/02 0800 12/02 0000 Intake Total 1850 1910 Output Total 825 658 Balance 1025 1252 Intake, IV 1050 1310 Intake, Other 600 Intake, Tube 800 Irrigant Number 1 Bowel Movements Output, 25 8 Drainage Output, Urine 800 650 Findings Pertinent Lab/Rl Results: Laboratory Tests 12/02 12/01 12/01 0430 2004 1337 Chemistry Sodium (137 - 145 mmol/L) 150 H 149 H 151 H Potassium (3.5 - 5.1 mmol/L) 4.1 4.0 4.1 Chloride (98 - 107 mmol/L) 119 H 120 H 120 H Carbon Dioxide (22 - 30 mmol/L) 19 L 20 L 19 L Anion Gap (5 - 16) 12 9 12 BUN (9 - 20 mg/dL) 73 H 73 H 74 H Creatinine (0.7 - 1.2 mg/dL) 2.4 H 2.2 H 2.1 H Estimated GFR (>60 ml/min) 29 L 32 L 34 L BUN/Creatinine Ratio (7 - 25 %) 33.2 H Glucose (65 - 99 mg/dL) 123 H 132 H Calcium (8.4 - 10.2 mg/dL) 6.8 L 6.9 L Phosphorus (2.5 - 4.5 mg/dL) 4.1 4.1 Magnesium (1.6 - 2.3 mg/dL) 2.2 2.3 Total Bilirubin (0.2 - 1.3 mg/dL) 1.0 1.2 AST (17 - 59 U/L) 44 56 ALT (21 - 72 U/L) 33 34 Creatine Kinase (55 - 170 U/L) Pending Albumin (3.5 - 5.0 g/dL) 1.6 L 1.5 L Coagulation PT (9.4 - 12.5 SEC) 14.4 H INR (0.90 - 1.17) 1.32 H APTT (25 - 37 SEC) 41 H Fibrinogen Activity (200 - 393 MG/DL) 518 H Hematology CBC w Diff MAN DIFF ORDERED WBC (4.8 - 10.8 /CUMM) 23.0 H RBC (4.70 - 6.10 /CUMM) 3.09 L Hgb (14.0 - 18.0 G/DL) 8.2 L Hct (42 - 52 %) 24.8 L MCV (80.0 - 94.0 FL) 80.3 MCH (27.0 - 31.0 PG) 26.4 L MCHC (33.0 - 37.0 G/DL) 32.9 L RDW (11.5 - 14.5 %) 15.0 H Plt Count (130 - 400 /CUMM) 84 L MPV (7.4 - 10.4 FL) 11.8 H Gran % (42.2 - 75.2 %) 84.6 H Lymphocytes % (20.5 - 51.1 %) 11.8 L Monocytes % (1.7 - 9.3 %) 3.1 Eosinophils % (0 - 5 %) 0.4 Basophils % (0.0 - 2.0 %) 0.1 Absolute Granulocytes (1.4 - 6.5 /CUMM) 19.5 H Segmented Neutrophils (42.2 - 75.2 %) 80 H Band Neutrophils (0.0 - 5.0 %) 1 Absolute Lymphocytes (1.2 - 3.4 /CUMM) 2.7 Lymphocytes (20.5 - 51.1 %) 15 L Monocytes (1.7 - 9.3 %) 3 Absolute Monocytes (0.10 - 0.60 /CUMM) 0.7 H Eosinophils (0 - 5.0 %) 1 Absolute Eosinophils (0.0 - 0.7 /CUMM) 0.1 Absolute Basophils (0.0 - 0.2 /CUMM) 0 Platelet Estimate (ADEQUATE) DECREASED Polychromasia 1+ Hypochromic-Microcytic 1+ Poikilocytosis 1+ Ovalocytes 1+ Other Body Source Fld Total RBCs Counted (%) 100
[2017-12-02] MEDS ORDERED: LEVEMIR100 UNIT/1 SC (09:53)
[2017-12-02] MEDS ORDERED: CEFAZOLIN SODIUM1 G1 IV (09:53)
[2017-12-02] MEDS ORDERED: NOVOLOG100 UNIT/2 SC (09:53)
[2017-12-02] MEDS ORDERED: PANTOPRAZOLE SO40 M2 IV (09:53)
--- NOTE | 2017-12-02 09:54 | Patient Discharge Instructions ---
Discharge Instructions General Discharge Information You were seen/treated for: 1. Staph aureus Septic shock with multiple organ failure with Multiple sub cut abcess 2. Diabetes with severe hyperosmolar state 3. ARF now creat stablizing 4. Multiple lesions in the lung highly suggestive of septic emboli probably from the lower abdominal infection 5. New right basilar opacity and small pleural effusion. You had these procedures: CT PERCUTANEOUS ABSCESS DRAIN Acute Coronary Syndrome Inclusion Criteria At DC or during hospital stay patient has or had the following: ACS DIAGNOSIS No Discharge Core Measures Meds if any: Prescribed or Continued at Discharge Meds if any: NOT Prescribed or Continued at Discharge Congestive Heart Failure Inclusion Criteria At DC or during hospital stay patient has or had the following: CHF DIAGNOSIS No Discharge Core Measures Meds if any: Prescribed or Continued at Discharge Meds if any: NOT Prescribed or Continued at Discharge Cerebrovascular accident Inclusion Criteria At DC or during hospital stay patient has or had the following: CVA/TIA Diagnosis No Discharge Core Measures Meds if any: Prescribed or Continued at Discharge Meds if any: NOT Prescribed or Continued at Discharge Venous thromboembolism Inclusion Criteria VTE Diagnosis No VTE Type NONE VTE Confirmed by (Test) NONE Discharge Core Measures - Per Current guidelines, there needs to be overlap - treatment for the first 5 days of Warfarin therapy. - If discharged on Warfarin prior to 5 days of - overlap therapy, the patient will need to be - assessed for post discharge needs including - *Post discharge parental anticoagulation - *Warfarin and/or parental anticoagulation education - *Follow up date to check INR post discharge At least 5 days overlap therapy as Inpatient No Meds if any: Prescribed or Continued at Discharge Note: Overlap Therapy is Warfarin and Anticoagulant Meds if any: NOT Prescribed or Continued at Discharge
--- NOTE | 2017-12-02 11:21 | PN- Infect Dx ---
Subjective Subjective: T-max 101.8. He offers no complaints. Objective Last 24 Hrs of Vital Signs/I&O Vital Signs Date Time Temp Pulse Resp B/P B/P Pulse O2 O2 Flow FiO2 Mean Ox Delivery Rate 12/02 1052 25 12/02 0945 99.9 12/02 0849 101.8 12/02 0800 100.0 105 22 105/60 12/02 0800 98 Ventilator 25% 12/02 0800 100.0 105 22 110/60 98 Ventilator 25% 12/02 0757 25 12/02 0600 106 27 97/56 12/02 0554 25 12/02 0400 99.5 107 28 113/66 12/02 0400 98 Ventilator 25% 12/02 0300 25 12/02 0200 103 26 106/56 12/02 0034 25 12/02 0000 98.8 107 27 92/50 05 0000 98.8 107 27 92/50 97 Ventilator 25% 12/02 0000 97 Ventilator 25% 12/01 2245 25 12/01 2200 98.9 102 25 93/55 12/01 2032 98 Ventilator 25% 12/01 2000 98.9 95 22 104/58 12/01 1950 25 12/01 1719 94/53 12/01 1613 28 12/01 1600 99.2 95 22 12/01 1600 99.2 95 22 86/00 98 Ventilator 28% 12/01 1600 98 Ventilator 28% 12/01 1415 98.5 12/01 1400 98.5 104 22 91/49 12/01 1350 28 12/01 1319 102.0 12/01 1200 99.5 110 22 102/50 12/01 1200 99.5 110 22 102/50 99 Ventilator 28% 12/01 1200 99 Ventilator 28% 12/01 1114 28 Intake & Output 12/02 1600 12/02 0800 12/02 0000 Intake Total 1850 1910 Output Total 825 658 Balance 1025 1252 Intake, IV 1050 1310 Intake, Other 600 Intake, Tube 800 Irrigant Number 1 Bowel Movements Output, 25 8 Drainage Output, Urine 800 650 Physical Exam Other Physical Findings: He is awake and alert on the ventilator Neck right IJ triple-lumen catheter with no inflammation at the site Lungs scattered rhonchi bilaterally Heart regular rhythm with no murmur Extremities [address] in the right posterior thigh, with the medial drain yielding 30 cc yesterday and 20 cc overnight and the lateral drain yielding 13 cc yesterday and 5 cc overnight Zabala catheter remains in place Results Last 24 Hours of Lab Results: Laboratory Tests 12/02 1337 Chemistry Sodium (137 - 145 mmol/L) 150 H 149 H 151 H Potassium (3.5 - 5.1 mmol/L) 4.1 4.0 4.1 Chloride (98 - 107 mmol/L) 119 H 120 H 120 H Carbon Dioxide (22 - 30 mmol/L) 19 L 20 L 19 L Anion Gap (5 - 16) 12 9 12 BUN (9 - 20 mg/dL) 73 H 73 H 74 H Creatinine (0.7 - 1.2 mg/dL) 2.4 H 2.2 H 2.1 H Estimated GFR (>60 ml/min) 29 L 32 L 34 L BUN/Creatinine Ratio (7 - 25 %) 33.2 H Glucose (65 - 99 mg/dL) 123 H 132 H Calcium (8.4 - 10.2 mg/dL) 6.8 L 6.9 L Phosphorus (2.5 - 4.5 mg/dL) 4.1 4.1 Magnesium (1.6 - 2.3 mg/dL) 2.2 2.3 Total Bilirubin (0.2 - 1.3 mg/dL) 1.0 1.2 AST (17 - 59 U/L) 44 56 ALT (21 - 72 U/L) 33 34 Creatine Kinase (55 - 170 U/L) 227 H Albumin (3.5 - 5.0 g/dL) 1.6 L 1.5 L Cortisol AM Sample (4.46 - 22.7 ug/dL) Pending Coagulation PT (9.4 - 12.5 SEC) 14.4 H INR (0.90 - 1.17) 1.32 H APTT (25 - 37 SEC) 41 H Fibrinogen Activity (200 - 393 MG/DL) 518 H Hematology CBC w Diff MAN DIFF ORDERED WBC (4.8 - 10.8 /CUMM) 23.0 H RBC (4.70 - 6.10 /CUMM) 3.09 L Hgb (14.0 - 18.0 G/DL) 8.2 L Hct (42 - 52 %) 24.8 L MCV (80.0 - 94.0 FL) 80.3 MCH (27.0 - 31.0 PG) 26.4 L MCHC (33.0 - 37.0 G/DL) 32.9 L RDW (11.5 - 14.5 %) 15.0 H Plt Count (130 - 400 /CUMM) 84 L MPV (7.4 - 10.4 FL) 11.8 H Gran % (42.2 - 75.2 %) 84.6 H Lymphocytes % (20.5 - 51.1 %) 11.8 L Monocytes % (1.7 - 9.3 %) 3.1 Eosinophils % (0 - 5 %) 0.4 Basophils % (0.0 - 2.0 %) 0.1 Absolute Granulocytes (1.4 - 6.5 /CUMM) 19.5 H Segmented Neutrophils (42.2 - 75.2 %) 80 H Band Neutrophils (0.0 - 5.0 %) 1 Absolute Lymphocytes (1.2 - 3.4 /CUMM) 2.7 Lymphocytes (20.5 - 51.1 %) 15 L Monocytes (1.7 - 9.3 %) 3 Absolute Monocytes (0.10 - 0.60 /CUMM) 0.7 H Eosinophils (0 - 5.0 %) 1 Absolute Eosinophils (0.0 - 0.7 /CUMM) 0.1 Absolute Basophils (0.0 - 0.2 /CUMM) 0 Platelet Estimate (ADEQUATE) DECREASED Polychromasia 1+ Hypochromic-Microcytic 1+ Poikilocytosis 1+ Ovalocytes 1+ Other Body Source Fld Total RBCs Counted (%) 100 Last 24 Hours of Rl Results: Blood cultures November 30 positive for Staph aureus Blood cultures December 01 negative Sputum culture November 30 positive for Staph aureus sensitive to Oxacillin and yeast Recent Imaging Studies: Chest x-ray December 02 right basilar opacity and small pleural effusion Assessment/Plan ID Impression: Staph aureus sepsis, presumably secondary to the right pelvic/lower extremity abscesses, status post drainage by IR 3 days ago, with persistent fevers and leukocytosis, now on Cefazolin. Surgical comments noted with concern regarding possible involvement of bone and need for orthopedic input if he were to go to surgery and, apparently, he is to be transferred to [place] for further management. His positive sputum culture likely reflects pulmonary infection, with cavitary lesions noted on the CT of the chest, either representing septic pulmonary emboli, possibly secondary to endocarditis, or seeding of the lungs from the bacteremia. Suggestion: 1. Await transfer to [place] for possible surgical intervention 2. Will need to pursue a MAAME 3. Continue Cefazolin
[2017-12-02 12:00] VITALS: BP 100/54; BP 108/58
[2017-12-02] MEDS ORDERED: [UNRECOGNIZED DRUG - OTHER] IV (12:01)
[2017-12-02] MEDS ORDERED: KCL 20 MEQ20 MEQ/100 IV (12:26)
== END 2017-12-02 14:40 | disposition short-term general hospital (02) | DRG 720 ==
LOC: ERH 09:52 → ERHI 11:22 → CRI 11:22 → ENRESERV 11:47 → ENTRNSPT 12:54 → EDTRNSPT 12:56 → EDTRNSPTSTS 12:56 → CRI 13:06 → CMPTRNSPT 13:15 → CRI 12-01 22:59
PROVIDERS: Internal Medicine; Physician Assistant Medical; Student in an Organized Health Care Education/Training Program
PROC: 0BH17EZ Insertion of Endotracheal Airway into Trachea, Via Natural or Artificial Opening (ICD-10-PCS; principal; 2017-11-28)
PROC: 5A1945Z Respiratory Ventilation, 24-96 Consecutive Hours (ICD-10-PCS; 2017-11-28)
PROC: 0H9LXZX Drainage of Left Lower Leg Skin, External Approach, Diagnostic (ICD-10-PCS; 2017-11-28)
PROC: 302 Administration, Circulatory, Transfusion (ICD-10-PCS; 2017-11-28)
PROC: 0J9L30Z Drainage of Right Upper Leg Subcutaneous Tissue and Fascia with Drainage Device, Percutaneous Approach (ICD-10-PCS; 2017-11-29)
PROC: 02HV33Z Insertion of Infusion Device into Superior Vena Cava, Percutaneous Approach (ICD-10-PCS; 2017-12-01)
DX: A41.01 Sepsis due to Methicillin susceptible Staphylococcus aureus (principal); E11.10 Type 2 diabetes mellitus with ketoacidosis without coma; J96.01 Acute respiratory failure with hypoxia; I76 Septic arterial embolism; E11.00 Type 2 diabetes mellitus with hyperosmolarity without nonketotic hyperglycemic-hyperosmolar coma (NKHHC); R65.21 Severe sepsis with septic shock; G93.41 Metabolic encephalopathy; E87.2 Acidosis; L89.153 Pressure ulcer of sacral region, stage 3; L89.223 Pressure ulcer of left hip, stage 3; I74.9 Embolism and thrombosis of unspecified artery; N17.9 Acute kidney failure, unspecified; A15.0 Tuberculosis of lung; N39.0 Urinary tract infection, site not specified; L02.416 Cutaneous abscess of left lower limb; M84.454A Pathological fracture, pelvis, initial encounter for fracture; D68.9 Coagulation defect, unspecified; L02.415 Cutaneous abscess of right lower limb; E87.0 Hyperosmolality and hypernatremia; I10 Essential (primary) hypertension; E11.8 Type 2 diabetes mellitus with unspecified complications; E11.65 Type 2 diabetes mellitus with hyperglycemia; K44.9 Diaphragmatic hernia without obstruction or gangrene; Z91.14 Patient's other noncompliance with medication regimen; R74.0 Nonspecific elevation of levels of transaminase and lactic acid dehydrogenase [LDH]; B95.61 Methicillin susceptible Staphylococcus aureus infection as the cause of diseases classified elsewhere; R19.00 Intra-abdominal and pelvic swelling, mass and lump, unspecified site; F12.90 Cannabis use, unspecified, uncomplicated; D72.823 Leukemoid reaction; Z79.84 Long term (current) use of oral hypoglycemic drugs; R31.0 Gross hematuria; F10.10 Alcohol abuse, uncomplicated; K60.4 Rectal fistula; K74.60 Unspecified cirrhosis of liver; F32.9 Major depressive disorder, single episode, unspecified
CPT/HCPCS: 86021; 87070; 87075; 87184; 87205; CCU; 36415; 36592; 71045; 74176; 75989; 80307; 81001; 82436; 86431; 86803; 87040; 87071; 87086; 87147; 87389; 88184; 88305; 93005; 93010; 93306; 93970; 96365; 96374; 96375; 99291; G0480; J0131; J0690; J0713; J1644; J1815; J2310; J2543; J3370; J7040; J7042; J7060; J7120